=== PATIENT | female | born 1950 | race Caucasian/White ===

== ENCOUNTER 2018-05-02 03:07 | Inpatient (IN) ==
--- NOTE | 2018-05-02 03:22 | Emergency Department Note ---
ED Disposition Clinical Impression: ST elevation myocardial infarction (STEMI) Qualifiers: Involved coronary artery: unspecified coronary artery Qualified Code(s): I21.3 - ST elevation (STEMI) myocardial infarction of unspecified site Obesity Qualifiers: Obesity type: due to excess calories Obesity classification: adult class 2 (BMI 35 - 39.9) Serious obesity comorbidity presence: unspecified whether serious comorbidity present Body mass index: BMI 38.0-38.9 Qualified Code(s): E66.09 - Other obesity due to excess calories Disposition: Admitted As Inpatient Condition on Discharge: Serious - Critical Care Critical Care Time: Yes Attestation: On , the high probability of a clinically significant, sudden or life threateni ng deterioration of the following system(s) required my full and direct attention, intervention and personal management. The time I documented below is in addition to time spent performing reported procedures but includes the following listed in this critical care notation. Total Critical Care Time: 30 Vital system(s) involved:: Circulatory Failure My critical care processes included: Assessment & monitoring of V/S, Data Review/Interpretation, Coordinating Care, Medication Orders and management, Documentation Medical Decision Making - Medical Records Medical records reviewed: Yes: I reviewed the patient's medical records. - Torsten Inquiry Pt receiving controlled substance: No Vital Signs: 05/02/18 03:07 05/02/18 03:30 Temperature 98 F Temperature Source Oral Pulse Rate [Right] 111 H 110 H Respiratory Rate 22 22 Blood Pressure [Right Arm] 131/87 155/89 H Blood Pressure Mean [Right Arm] 101 111 02 Sat by Pulse Oximetry 94 L 97 Oxygen Delivery Method Room Air Nasal Cannula Oxygen Flow Rate (LPM) 4 - Lab Data Lab Results 05/02/18 03:20: WBC 10.7, RBC 5.46 H, Hgb 15.6, Hct 46.9, MCV 86.0, MCH 28.5, MCHC 33.1, RDW 13.4, Plt Count 343, MPV 6.7 L, Neut % (Auto) 74.8, Lymph % (Auto) 18.7, [place] % (Auto) 4.3, Eos % (Auto) 1.6, Baso % (Auto) 0.6, Neut # (Auto) 8.0 H, Lymph # (Auto) 2.0, [place] # (Auto) 0.5, Eos # (Auto) 0.2, Baso # (Auto) 0.1 05/02/18 03:20: Sodium 137, Potassium 3.6, Chloride 100, Carbon Dioxide 26, Anion Gap 14.6, BUN 14, Creatinine 0.78, Estimated Creat Clear 98, Estimated GFR 74, Est GFR ( Amer) 89, Glucose 175 H, Calcium 9.3 Result diagrams: 05/02/18 03:20 05/02/18 03:20 Orders (Tests/Meds): ED MEDICATIONS Generic Name Dose Route Start Last Admin Trade Name Freq PRN Reason Stop Dose Admin Sodium Chloride 1,000 mls @ 999 mls/hr 05/02/18 03:15 05/02/18 03:23 Sod Chlor 0.9% 1000ml Bag IV 05/02/18 04:15 999 mls/hr .Q1H1M RAEANN Administration Discontinued Medications Generic Name Dose Route Start Last Admin Trade Name Freq PRN Reason Stop Dose Admin Aspirin 324 mg 05/02/18 03:14 05/02/18 03:23 Aspirin 81mg Chewable Tablet PO 05/02/18 03:15 324 mg ONCE ONE Administration Heparin Sodium (Porcine) 5,000 unit 05/02/18 03:14 05/02/18 03:28 Heparin Sodium 5,000 Units/Ml Vial IV 05/02/18 03:15 Not Given ONCE ONE Heparin Sodium (Porcine) 10,000 unit 05/02/18 03:26 05/02/18 03:28 Heparin Sodium 5,000 Units/Ml Vial IV 05/02/18 03:27 10,000 unit ONCE ONE Administration Morphine Sulfate 4 mg 05/02/18 03:36 05/02/18 03:37 Morphine 4mg/Ml Syringe IV 05/02/18 03:37 4 mg ONCE ONE Administration Ondansetron HCl 4 mg 05/02/18 03:37 05/02/18 03:37 Zofran 4mg/2ml Vial IV 05/02/18 03:38 4 mg ONCE ONE Administration Ticagrelor 180 mg 05/02/18 03:14 05/02/18 03:23 Brilinta 90mg Tablet PO 05/02/18 03:15 180 mg ONCE ONE Administration ORDERS Category Date Time Status XR chest portable Stat Exams 05/02/18 03:13 Taken Basic Metabolic Panel Stat Lab 05/02/18 03:20 Results PT/INR [Prothrombin Time INR] Stat Lab 05/02/18 03:20 Received PT/PTT Stat Lab 05/02/18 03:20 Received Troponin I Stat Lab 05/02/18 03:20 Results ECG Request by /Dixon Stat Y 05/02/18 03:11 Ordered - ECG Data Tracing #1 Normal Sinus Rhythm: Yes Ischemic changes: ST elevation ECG compared to prior tracings: there are no prior tracings available for comparison - Physician Consults Physician Consulted: maude Reason -: Pt condition Additional Consult: sound Reason -: Admission Chest Pain HPI - General Chief Complaint: Chest Pain Stated Complaint: Chest pain Time Seen by Provider: 05/02/18 03:10 Mode of Arrival: Ambulatory Source of Information: Patient, Relative, Medical Record Limitations: No Limitations Description of Symptoms (Recalled from ER Triage Doc. by RN): Pt c/o midsternal CP that radiates to her jaw and neck that started around 2100 last night. - History of Present Illness HPI narrative: acute onset of ant chest pain rad to jaw which started 2100 - MD complaint: chest pain indicative of cardiac Onset (ago): hour(s) Duration: constant Activity at onset: during rest Pain location: substernal Severity: moderate Quality: sharp Pain radiation: neck Associated symptoms: nausea Risk Factors for CAD: Family Hx of CAD Treatments prior to or on arrival for Cardiac Chest Pain: none - BRENDA Score for Stemi Age of Patient: 60-69 years old Heart Rate: 110-149 bpm Systolic Blood Pressure: 120-139 mmhg Serum Creatinine: 0.40-0.79 mg/dl CHF Kill[place] Class: I-No CHF Other Risk Factors: ST Segment Deviation Stemi Risk Score: 148 - Related Data On Oral Contraceptives: No Home Medications Medication Instructions Recorded Confirmed No Known Home Medications 05/02/18 05/02/18 Allergies Allergy/AdvReac Type Severity Reaction Status Date / Time Sulfa (Sulfonamide Allergy Mild Verified 05/02/18 03:22 Antibiotics) [SULFA (SULFONAMIDE ANTIBIOTICS)] [facility] History I have reviewed the patient's past medical history: Yes - Social History Smoking Status: Former smoker Alcohol Intake: never - Psychiatric History Expresses thoughts of harming self/others: None Suicide Plan Description: No Plan ROS Obtained: Yes All systems reviewed & no additional complaints - Constitutional Constitutional: Denies fever(s) - Eyes Eyes: Denies change in vision - ENT Ears, Nose, Mouth, and Throat: Denies sore throat - Cardiovascular Cardiovascular: Reports chest pain, Reports chest pain at rest, Reports dyspnea - Respiratory Respiratory: No cough - Gastrointestinal Gastrointestingal: Denies: abdominal pain - Genitourinary Female Genitourinary: Denies hematuria - Musculoskeletal Musculoskeletal: Reports joint pain - Integumentary/Breasts Skin/Breast: Denies rash - Neurologic Neurologic: Denies seizure-like activity Physical Exam - General General appearance: alert, obese - Head Head exam: normocephalic - Eye Eye exam: Present: PERRL, EOMI - ENT ENT exam: Present: mucous membranes dry - Neck Neck exam: Present: trachea midline - Respiratory Respiratory exam: Absent: respiratory distress - Cardiovascular Cardiovascular exam: Present: regular rate, systolic murmur - Abdominal Exam Abdominal exam: Present: soft - Extremities Exam Extremities exam: Absent: tenderness - Neurological Exam Neurological exam: Present: alert, oriented X3, CN II-XII intact - Psychiatric Psychiatric exam: Present: normal affect - Skin Skin exam: Absent: rash
[2018-05-02 03:29] LABS: Basophils # 0.1 K/mm3 (0-0.2); Basophils % 0.6 % (0.1-2.0); Eosinophils # 0.2 K/mm3 (0.0-0.4); Eosinophils % 1.6 % (0.1-12.0); Hematocrit 46.9 % (37.0-47.0); Hemoglobin 15.6 g/dL (12.2-16.2); Lymphocytes % 18.7 % (10-50); Mean Corpuscular HGB Conc 33.1 g/dL (31.8-35.4); Mean Corpuscular Hemoglobin 28.5 pg (27.0-31.2); Mean Platelet Volume 6.7 fl (7.4-10.4); Monocytes # 0.5 K/mm3 (0.1-1.0); Monocytes % 4.3 % (1.7-9.3); Neutrophils % 74.8 % (37.0-80.0); Platelet Count 343 K/mm3 (142-424); Red Blood Count 5.46 M/mm3 (4.20-5.40); Red Cell Distribution Width 13.4 % (11.5-17.5); White Blood Count 10.7 K/mm3 (4.8-10.8)
[2018-05-02 03:37] LABS: Anion Gap 14.6 mEq/L (5-15); Potassium 3.6 mmoL/L (3.5-5.1)
[2018-05-02 03:38] LABS: Activated Partial Thrombo Time 27.3 seconds (23.6-34.0); Calcium 9.3 mg/dL (8.5-10.1); INR 0.95 (0.9-1.1); Prothrombin Time 9.8 seconds (9.4-11.8)
[2018-05-02 06:09] LABS: Chol/HDL Ratio 5.8 (1-3.5)
--- NOTE | 2018-05-02 07:55 | Pharmacy Consult Notes ---
[facility] Pharmacy VTE Monitoring - Patient Demographics Admission date: 05/01/18 Report Date: 05/02/18 Time: 07:55 Allergies/Adverse Reactions: Patient Allergies Sulfa (Sulfonamide Antibiotics) [SULFA (SULFONAMIDE ANTIBIOTICS)] Allergy (Mild, Verified 05/02/18 05:26) Height: 1.75 m Weight: 118.473 kg Patient Problems: Current Active Problems ST elevation myocardial infarction (STEMI) (Acute) Obesity (Acute) - VTE Risk Labs: VTE Related Lab Results Hgb 15.6 g/dL (12.2-16.2) 05/02/18 03:20 Hct 46.9 % (37.0-47.0) 05/02/18 03:20 Plt Count 343 K/mm3 (142-424) 05/02/18 03:20 PT 9.8 seconds (9.4-11.8) 05/02/18 03:20 INR 0.95 (0.9-1.1) 05/02/18 03:20 APTT 27.3 seconds (23.6-34.0) 05/02/18 03:20 BUN 14 mg/dL (7-18) 05/02/18 03:20 Creatinine 0.78 mg/dL (0.55-1.02) 05/02/18 03:20 Estimated Creat Clear 98 mL/min (50-200) 05/02/18 03:20 Was VTE Risk Assessment Performed: No VTE Score: 3 VTE Risk Level: Low Risk Clinical Trial Participant: No - Prophylaxis VTE Prophylaxis Ordered?: Yes Types of VTE Prophylaxis: TEDS Knee High
--- NOTE | 2018-05-02 08:47 | History & Physical Report ---
*Admission Date: 05/01/18 <Miladis Acevedo 05/02/18 08:49> *Chief complaint: chest pain <Miladis cAevedo 05/02/18 08:49> *History of present illness: Ms. Cardenas is a 67-year-old with no real medical history other than allergies. She states around 9 PM last night, she began having midsternal chest pain. She thought it was heartburn because she had just eaten some chili. By 2 AM she was sweating and the pain was radiating to her jaw on the left side. She states she felt like something was sitting on her chest. She was brought to the emergency room and found to have a STEMI. She was immediately taken to the [facility] and received a stent in her LAD. At this time she is doing well and has had no further chest pain. <Miladis Acevedo 05/02/18 08:49> [facility] History Medical History: Denies:: Cancer, Diabetes Mellitus Type 1, Diabetes Mellitus Type 2, MRSA <Miladis Acevedo 05/02/18 08:49> Comment: Allergies <Miladis Acevedo 05/02/18 08:49> Amputation: No <Miladis Acevedo 05/02/18 08:49> Fractures: No <Miladis Acevedo 05/02/18 08:49> Comment: Polyp removed from uterus <Miladis Acevedo 05/02/18 08:49> - *Social History Smoking Status: Former smoker <Miladis Acevedo 05/02/18 08:49> Alcohol Intake: never <Miladis Acevedo 05/02/18 08:49> Occupational Status: retired <Miladis Acevedo 05/02/18 08:49> - Psychiatric History Expresses thoughts of harming self/others: None <Miladis Acevedo 05/02/18 08:49> Suicide Plan Description: No Plan <Miladis Acevedo 05/02/18 08:49> *Family Hx:: Cancer, Heart Attack <Miladis Acevedo 05/02/18 08:49> Review of Systems - Constitutional Denies fever(s), Denies weakness <Miladis Acevedo 05/02/18 08:49> - Eyes Denies blurry vision, Denies double vision <Miladis Acevedo - 05/02/18 08:49> - ENT Denies nasal congestion, Denies sore throat [facility] 08[facility]> - *Cardiovascular Reports chest pain, Denies shortness of breath, Denies leg swelling <[facility] 05/02/18 08:49> - *Respiratory Denies cough, Denies shortness of breath <[facility] 05/02/18 08:49> - *Gastrointestinal Denies abdominal pain, Denies loose stools, Denies nausea, Denies vomiting [facility] 05/02/18 08:49> - *Genitourinary Denies difficulty urinating, Denies painful urination <[facility] 05/02/18 08:49> - *Musculoskeletal Denies joint pain, Denies muscle cramps <[facility] 05/02/18 08:49> - *Neurologic Denies headache(s), Denies seizure-like activity, Denies dizziness, Denies weakness <Miladis Acevedo 05/02/18 08:49> Meds Home Medications Medication Instructions Recorded Confirmed Type Cetirizine HCl [Zyrtec] 10 mg PO DAILYP PRN 05/02/18 05/02/18 History hydroCHLOROthiazide 12.5 mg PO DAILYP PRN 05/02/18 05/02/18 History [Hydrochlorothiazide 12.5mg Tab] [facility]/02/[facility] 11:14> Allergies Allergy/AdvReac Type Severity Reaction Status Date / Time Sulfa (Sulfonamide Allergy Mild Verified 05/02/18 05:26 Antibiotics) [SULFA (SULFONAMIDE ANTIBIOTICS)] [facility] 05/02/18 11:14> Exam Vital signs and Labs for Last 24 Hours: Temp Pulse Resp BP Pulse Ox 98.2 F 87 20 154/106 H 96 05/02/18 08:00 05/02/18 10:40 05/02/18 10:40 05/02/18 10:40 05/02/18 10:40 Laboratory Results - last 24 hr 05/02/18 03:20: WBC 10.7, RBC 5.46 H, Hgb 15.6, Hct 46.9, MCV 86.0, MCH 28.5, MCHC 33.1, RDW 13.4, Plt Count 343, MPV 6.7 L, Neut % (Auto) 74.8, Lymph % (Auto) 18.7, [place] % (Auto) 4.3, Eos % (Auto) 1.6, Baso % (Auto) 0.6, Neut # (Auto) 8.0 H, Lymph # (Auto) 2.0, [place] # (Auto) 0.5, Eos # (Auto) 0.2, Baso # (Auto) 0.1 05/02/18 03:20: Sodium 137, Potassium 3.6, Chloride 100, Carbon Dioxide 26, Anion Gap 14.6, BUN 14, Creatinine 0.78, Estimated Creat Clear 98, Estimated GFR 74, Est GFR ( Amer) 89, Glucose 175 H, Calcium 9.3, Troponin I 0.83 H 05/02/18 03:20: PT 9.8, INR 0.95, APTT 27.3 05/02/18 04:56: Activated Clotting Time 235 H* 05/02/18 05:10: Activated Clotting Time 313 H* D 05/02/18 05:40: Triglycerides 44, Cholesterol 242 H, LDL Cholesterol 191 H, VLDL Cholesterol 9, HDL Cholesterol 42, Cholesterol/HDL Ratio 5.8 H <Sound,Mary - 05/02/18 11:14> Temp Pulse Resp BP Pulse Ox 98.2 F 82 17 140/89 97 05/02/18 08:00 05/02/18 06:40 05/02/18 06:40 05/02/18 06:40 05/02/18 06:40 Laboratory Results - last 24 hr 05/02/18 03:20: WBC 10.7, RBC 5.46 H, Hgb 15.6, Hct 46.9, MCV 86.0, MCH 28.5, MCHC 33.1, RDW 13.4, Plt Count 343, MPV 6.7 L, Neut % (Auto) 74.8, Lymph % (Auto) 18.7, [place] % (Auto) 4.3, Eos % (Auto) 1.6, Baso % (Auto) 0.6, Neut # (Auto) 8.0 H, Lymph # (Auto) 2.0, [place] # (Auto) 0.5, Eos # (Auto) 0.2, Baso # (Auto) 0.1 05/02/18 03:20: Sodium 137, Potassium 3.6, Chloride 100, Carbon Dioxide 26, Anion Gap 14.6, BUN 14, Creatinine 0.78, Estimated Creat Clear 98, Estimated GFR 74, Est GFR ( Amer) 89, Glucose 175 H, Calcium 9.3, Troponin I 0.83 H 05/02/18 03:20: PT 9.8, INR 0.95, APTT 27.3 05/02/18 04:56: Activated Clotting Time 235 H* 05/02/18 05:10: Activated Clotting Time 313 H* D 05/02/18 05:40: Triglycerides 44, Cholesterol 242 H, LDL Cholesterol 191 H, VLDL Cholesterol 9, HDL Cholesterol 42, Cholesterol/HDL Ratio 5.8 H <Miladis Acevedo - 05/02/18 08:49> I & O for Last 24 hours: Intake & Output 04/29/18 04/30/18 05/01/18 05/02/18 11:59 11:59 11:59 11:59 Intake Total Output Total 150 / 150 Balance -140 / -140 Weight 261 lb 3 oz <JackieAyoa - 05/02/18 11:14> Intake & Output 04/29/18 04/30/18 05/01/18 05/02/18 11:59 11:59 11:59 11:59 Intake Total Balance Weight 261 lb 3 oz <Miladis Acevedo - 05/02/18 08:49> - Constitutional no acute distress <Miladis Acevedo - 05/02/18 08:49> - *Routine HEENT Exam Head: Present: normocephalic <Miladis Acevedo - 05/02/18 08:49> Eye: Present: EOMI, PERRL <Miladis Acevedo - 05/02/18 08:49> ENT: Present: mucous membranes moist <Miladis Acevedo 05/02/18 08:49> - *Routine Neck Exam Present: supple. Absent: lymphadenopathy <Miladis Acevedo - 05/02/18 08:49> - *Routine Respiratory Exam Present: CTA bilaterally <Miladis Acevedo 05/02/18 08:49> - *Routine Cardiovascular Exam Present: RRR <Miladis Acevedo 05/02/18 08:49> - *Routine Abdominal Exam Present: soft, normoactive bowel sounds. Absent: tenderness <Miladis Acevedo 05/02/18 08:49> - *Routine Extremities Exam Absent: cyanosis, clubbing, edema <Miladis Acevedo 05/02/18 08:49> - *Routine Skin Exam Present: warm. Absent: rash <Miladis Acevedo 05/02/18 08:49> - *Routine Neurological Exam Present: alert, oriented X3 <Miladis Acevedo 05/02/18 08:49> H&P: Result - Impressions CXR - Increased markings right lung base which could be due to vascular crowding, atelectasis, or infiltrate Cardiac Cath 1. Acute ST elevation myocardial infarction involving the mid left anterior descending artery 2. Successful stenting of the mid LAD 100% occlusion reduced to 0% with 1 drug- eluting stent 3. Mild to moderate nonflow limiting disease in the circumflex artery and domin ant right coronary artery PLAN: 1. Brilinta 90 mg twice a day plus aspirin 81 mg daily for one year 2. LDL less than 55 3. Start with naeem inhibitors followed by carvedilol and uptitrate as hemodyn amically tolerated 4. Echocardiogram to assess ejection fraction 5. I suspect patient will require a lifevest based on her prolonged infarct I'm starting at 9:00 PM. Ejection fraction is 35% or less patient should be discharged home with a lifevest 6. Avoidance of tobacco products 7. Cardiac rehabilitation <Miladis Acevedo 05/02/18 08:49> Assessment and Plan (1) ST elevation myocardial infarction (STEMI) Current visit: Yes Status: Acute Qualifiers: Involved coronary artery: unspecified coronary artery Qualified Code(s): I21.3 - ST elevation (STEMI) myocardial infarction of unspecified site Category: Medical Code(s): I21.3 - ST elevation (STEMI) myocardial infarction of unspecified site (2) Presence of stent in LAD coronary artery Current visit: Yes Status: Acute Category: Medical Code(s): Z95.5 - Presence of coronary angioplasty implant and graft (3) Hyperlipidemia Current visit: Yes Status: Acute Category: Medical Code(s): E78.5 - Hyperlipidemia, unspecified <Miladis Acevedo - 05/02/18 08:44> (1) ST elevation myocardial infarction (STEMI) Current visit: Yes Status: Acute Qualifiers: Involved coronary artery: unspecified coronary artery Qualified Code(s): I21.3 - ST elevation (STEMI) myocardial infarction of unspecified site Category: Medical Code(s): I21.3 - ST elevation (STEMI) myocardial infarction of unspecified site (2) Presence of stent in LAD coronary artery Current visit: Yes Status: Acute Category: Medical Code(s): Z95.5 - Presence of coronary angioplasty implant and graft (3) Hyperlipidemia Current visit: Yes Status: Acute Category: Medical Code(s): E78.5 - Hyperlipidemia, unspecified <Mary Mejia - 05/02/18 11:14> - Assessment and plan all Dx Assessment and Plan for all problems:: Patient will need lifevest per cardiology. She will also need new set of cardiac meds upon discharge. Will stop IVF for now. <Mary Mejia - 05/02/18 11:14> Cath reviewed, further as per cardiology. <Miladis Acevedo - 05/02/18 08:49>
--- NOTE | 2018-05-02 10:23 | Cardiology Report ---
PROCEDURE: 2-D M-mode and color Doppler study INDICATIONS FOR THE TEST: Chest painX COPD Heart Murmur Tobacco Smoking Palpitations Fatigue Syncope Edema Hypertension Diabetes Mellitus Rheumatic Fever SOB JIMÉNEZ ObesityXHyperlipidemia Family History HD Additional History STEMI,STENT PATIENT INFORMATION HEIGHT: 68 WEIGHT:250 GENDER: Female B/P:138/78 2-D/M-MODE INTERPRETATION: 2-D MEASUREMENTS OBSERVED VALUES IN CMS Right Ventricular Dimension (RVDd) 3.4 Interventricular Septum (Thickness)(IVsd) 1.2 Left Ventricular Internal Dimensions(LVIDd) 4.1 Left Ventricular Posterior Wall (Thickness)(LVPWd) 1.3 Aortic Root 3.3 Aortic Cusp Separation 1.9 Left Atrial Dimensions (LAD) 3.3 2D 1. Left atrium is mildly enlarged, left ventricle is normal size, mild concentric left ventricular hypertrophy, visually estimated ejection fraction approximately 30%, there is marked hypokinesis involving mid to distal septum, anterior, anteroapical and apical wall. 2. The right atrium and right ventricle are mildly enlarged with normal contractility. 3. The aortic valve is minimally thickened and fibrosed. 4. The mitral and tricuspid valve leaflets are minimally thickened. 5. The pulmonic valve is poorly visualized. 6. No significant pericardial effusion noted. DOPPLER INTERROGATION: Doppler interrogation of the aortic, mitral and tricuspid valvular presence of mild mitral and tricuspid regurgitation, calculated right ventricular systolic pressure is 43 mmHg consistent with moderate pulmonary hypertension, grade 1 diastolic dysfunction seen with tissue Doppler evidence of raised left atrial pressure. CONCLUSION: 1. Mildly enlarged left atrium, normal left ventricular size, mild concentric left ventricular hypertrophy, visually estimated ejection fraction 30% with multiple segmental wall motion abnormality described above, grade 1 diastolic dysfunction seen with tissue Doppler evidence of raised left atrial pressure. 2. Mild mitral and tricuspid regurgitation, likely related right ventricular systolic pressure is 43 mmHg consistent with moderate pulmonary hypertension. 4. Mildly enlarged right ventricle with normal contractility. 5. No significant pericardial effusion noted.
[2018-05-02 17:19] LABS: Microscopic, Urine URINE MICROSCOPIC (MICROSCOPIC)
[2018-05-02 18:46] LABS: Appearance,Urine CLEAR (Clear); Bilirubin,Urine Negative (Negative); Blood, Urine TRACE-I (Negative); Color,Urine YELLOW (Yellow); Glucose,Urine (UA) Negative (Negative); Ketones,Urine Negative (Negative); Leukocyte Esterase,Urine Negative (Negative); Protein,Urine Negative (Negative); Specific Gravity, Urine <= 1.005 (1.005-1.030)
[2018-05-02 18:56] LABS: Bacteria,Urine 1+ /lpf; RBC,Urine Occasional #/hpf (0-3); WBC,Urine Occasional #/hpf (0-3)
[2018-05-03 06:05] LABS: Hemoglobin 13.9 g/dL (12.2-16.2)
--- NOTE | 2018-05-03 08:55 | Progress Note ---
Internal Medicine - PN: Subj Interval history: She rested fairly well last night with no chest pain or shortness of breath. She has been a bit anxious. She is tolerating light activity in the room. She is to be fitted for her LifeVest today. Exam Vital signs and Labs for Last 24 Hours: Temp Pulse Resp BP Pulse Ox 99.4 F 101 H 20 135/83 95 05/03/18 08:00 05/03/18 08:00 05/03/18 08:00 05/03/18 08:00 05/03/18 08:00 Laboratory Results - last 24 hr 05/02/18 14:10: Urine Color Yellow, Urine Appearance Clear, Urine pH 7.0, Ur Specific [place] <= 1.005, Urine Protein Negative, Urine Glucose (UA) Negative, Urine Ketones Negative, Urine Blood Trace-i, Urine Nitrate Negative, Urine Bilirubin Negative, Urine Urobilinogen 1.0, Ur Leukocyte Esterase Negative, Urine RBC Occasional, Urine WBC Occasional, Ur Squamous Epith Cells 3-5, Urine Bacteria 1+ 05/03/18 05:45: Hgb 13.9, Hct 41.0 05/03/18 05:45: Creatinine 0.80, Estimated Creat Clear 101, Estimated GFR 72, Est GFR ( Amer) 87 I & O for Last 24 hours: Intake & Output 04/30/18 05/01/18 05/02/18 05/03/18 11:59 11:59 11:59 11:59 Intake Total 120 / 120 Output Total 150 / 150 625 / 625 Balance -140 / -140 -505 / -505 Weight 261 lb 3 oz 257 lb 7 oz Narrative: She is lying comfortably in bed. No acute distress. She is alert and oriented. Color is normal. Lungs are clear to auscultation. Heart is regular. Extremities no edema. Assessment and Plan (1) ST elevation myocardial infarction (STEMI) Current visit: Yes Status: Acute Qualifiers: Involved coronary artery: unspecified coronary artery Qualified Code(s): I21.3 - ST elevation (STEMI) myocardial infarction of unspecified site Category: Medical Code(s): I21.3 - ST elevation (STEMI) myocardial infarction of unspecified site (2) Presence of stent in LAD coronary artery Current visit: Yes Status: Acute Category: Medical Code(s): Z95.5 - Presence of coronary angioplasty implant and graft (3) Hyperlipidemia Current visit: Yes Status: Acute Category: Medical Code(s): E78.5 - Hyperlipidemia, unspecified - Assessment and plan all Dx Assessment and Plan for all problems:: She is to be fitted with her LifeVest today. We will start on low-dose MARY inhibitor and beta-serina and titrate as tolerated. Encourage activity in the room.
--- NOTE | 2018-05-04 08:21 | Progress Note ---
Internal Medicine - PN: Subj Interval history: She has no complaints of chest pain, palpitations, or shortness of breath. She is tolerating light activity around the room. She was fitted for her LifeVest yesterday. She is eager to go home. Exam Vital signs and Labs for Last 24 Hours: Temp Pulse Resp BP Pulse Ox 98.5 F 88 20 100/54 L 94 L 05/04/18 08:00 05/04/18 08:00 05/04/18 08:00 05/04/18 08:00 05/04/18 08:00 I & O for Last 24 hours: Intake & Output 05/01/18 05/02/18 05/03/18 05/04/18 11:59 11:59 11:59 11:59 Intake Total 120 / 120 1060 / 1060 Output Total 150 / 150 625 / 625 800 / 800 Balance -140 / -140 -505 / -505 260 / 260 Weight 261 lb 3 oz 257 lb 7 oz 254 lb 7 oz Narrative: She is sitting up in the chair. No acute distress. Color is normal. Lungs are clear to auscultation. Heart is regular with no ectopy. Extremities show no edema. Assessment and Plan (1) ST elevation myocardial infarction (STEMI) Current visit: Yes Status: Acute Qualifiers: Involved coronary artery: unspecified coronary artery Qualified Code(s): I21.3 - ST elevation (STEMI) myocardial infarction of unspecified site Category: Medical Code(s): I21.3 - ST elevation (STEMI) myocardial infarction of unspecified site (2) Presence of stent in LAD coronary artery Current visit: Yes Status: Acute Category: Medical Code(s): Z95.5 - Presence of coronary angioplasty implant and graft (3) Hyperlipidemia Current visit: Yes Status: Acute Category: Medical Code(s): E78.5 - Hyperlipidemia, unspecified - Assessment and plan all Dx Assessment and Plan for all problems:: She is now 48 hours post IA and stenting. She is doing well. She is wearing her LifeVest. She is stable to be discharged home and will follow up with Dr. Diallo in 2 days.
--- NOTE | 2018-05-05 16:41 | Discharge Summary ---
General - General Admission date:: 05/02/18 <AdelaNader roberto Sage - 05/06/18 08:10> 05/02/18 <Miladis Acevedo - 05/05/18 16:42> Discharge date: 05/04/18 <Miladis Acevedo - 05/05/18 16:42> HPI HPI: Ms. Cardenas is a 67-year-old with no real medical history other than allergies. She states around 9 PM last night, she began having midsternal chest pain. She thought it was heartburn because she had just eaten some chili. By 2 AM she was sweating and the pain was radiating to her jaw on the left side. She states she felt like something was sitting on her chest. She was brought to the emergency room and found to have a STEMI. She was immediately taken to [facility] and received a stent in her LAD. At this time she is doing well and has had no further chest pain. <Miladis Acevedo - 05/05/18 16:42> Hospital Course Hospital Course: The patient's echo showed an EF of 30%. Cardiology fitted her with a life vest. She was started on new cardiac medications as well as a low- dose MARY inhibitor and beta-serina. She had no further CP and tolerated light activity around the room. She was stable to be discharged home and will follow up with Dr. Diallo in 2 days. <Miladis Acevedo - 05/05/18 16:42> Objective Vital signs: Temp Pulse Resp BP Pulse Ox 98.5 F 88 20 100/54 L 94 L 05/04/18 08:00 05/04/18 08:00 05/04/18 08:00 05/04/18 08:00 05/04/18 08:00 <AdelaNader garner Sage - 05/06/18 08:10> Temp Pulse Resp BP Pulse Ox 98.5 F 88 20 100/54 L 94 L 05/04/18 08:00 05/04/18 08:00 05/04/18 08:00 05/04/18 08:00 05/04/18 08:00 <Miladis Acevedo - 05/05/18 16:42> Narrative: - Constitutional no acute distress - *Routine HEENT Exam Head: Present: normocephalic Eye: Present: EOMI, PERRL ENT: Present: mucous membranes moist - *Routine Neck Exam Present: supple. Absent: lymphadenopathy - *Routine Respiratory Exam Present: CTA bilaterally - *Routine Cardiovascular Exam Present: RRR - *Routine Abdominal Exam Present: soft, normoactive bowel sounds. Absent: tenderness - *Routine Extremities Exam Absent: cyanosis, clubbing, edema - *Routine Skin Exam Present: warm. Absent: rash - *Routine Neurological Exam Present: alert, oriented X3 <Miladis Acevedo - 05/05/18 16:42> DS: Diagnosis - Discharge Diagnosis (1) ST elevation myocardial infarction (STEMI) Status: Acute (2) Presence of stent in LAD coronary artery Status: Acute (3) Hyperlipidemia Status: Acute <Miladis Acevedo 05/05/18 16:37> (1) ST elevation myocardial infarction (STEMI) Status: Acute (2) Presence of stent in LAD coronary artery Status: Acute (3) Hyperlipidemia Status: Acute <Nader Chapman - 05/06/18 08:10> Discharge Plan - Patient Discharge Instructions ACTIVITY: Limited activity <Miladis Acevedo - 05/05/18 16:42> DIET: cardiac <Miladis Acevedo - 05/05/18 16:42> Patient Instructions: Cardiac Catheterization, Coronary Stenting, Heart-Healthy Diet, DI for Cardiac Catheterization, DI for Coronary Stenting, DI for Surgical Site Infection, Ticagrelor, Lisinopril, Carvedilol <Nader Chapman - 05/06/18 08:10> Forms: <Nader Chapman - 05/06/18 08:10> - Follow up Plan Follow up with: Mick Diallo MD [Staff Physician] - 05/06/18 9:00 am <Nader Chapman - 05/06/18 08:10> Disposition: Home, Self-Care <Nader Chapman - 05/06/18 08:10> Prescriptions/Medication Reconciliation: New RX: Atorvastatin Calcium [Lipitor 40mg Tablet] 40 mg PO HS #30 tab RX: Carvedilol [Coreg 3.125mg Tablet] 3.125 mg PO BID #60 tab RX: Lisinopril [Zestril 5mg Tablet] 5 mg PO DAILY #30 tab RX: Nitroglycerin [Nitrostat 0.4mg SL Tablet] 0.4 mg SL Q5MINP PRN #25 tab.subl PRN Reason: Chest Pain RX: Ticagrelor [Brilinta 90mg Tablet] 90 mg PO BID #60 tab RX: Aspirin [Aspirin 81mg EC Tab] 81 mg PO DAILY #30 tablet.dr Discontinued Cetirizine HCl [Zyrtec] 10 mg PO DAILYP PRN PRN Reason: ALLERGY SYMPTOMS hydroCHLOROthiazide [Hydrochlorothiazide 12.5mg Tab] 12.5 mg PO DAILYP PRN PRN Reason: FLUID <Nader Chapman - 05/06/18 08:10> - Additional Information Additional Information: Concur with plan for discharge as outlined above. <Nader Chapman - 05/06/18 08:10>
== END 2018-05-04 09:32 | disposition home or self-care (01) ==
LOC: ER 03:07 → CATHLAB 03:36 → 2ND 04:57
PROVIDERS: ADMIT Emergency Medicine; ATTEND Emergency Medicine

== ENCOUNTER → 2018-05-06 09:13 | Outpatient (CLI) | payer MEDICARE, MEDICAID, SELFPAY ==
--- NOTE | 2018-05-06 09:32 | CA_ITS ---
PROCEDURE: Limited study evaluate left ventricular systolic function INDICATIONS FOR THE TEST: Chest pain COPD Heart Murmur Tobacco Smoking Palpitations Fatigue Syncope Edema Hypertension Diabetes Mellitus Rheumatic Fever SOB JIMÉNEZ Obesity Hyperlipidemia Family History HD Additional History PT WORE LIFEVEST 1 DAY, STEMI, STENTS PATIENT INFORMATION HEIGHT:68 WEIGHT:217 GENDER: Female B/P: 2-D/M-MODE INTERPRETATION: 2-D MEASUREMENTS OBSERVED VALUES IN CMS Right Ventricular Dimension (RVDd) Interventricular Septum (Thickness)(IVsd) Left Ventricular Internal Dimensions(LVIDd) Left Ventricular Posterior Wall (Thickness)(LVPWd) Aortic Root Aortic Cusp Separation Left Atrial Dimensions (LAD) 2D 1. Left atrium is mildly enlarged, left ventricle is normal size, mild concentric left ventricular hypertrophy, there is severely reduced left ventricular systolic function, visually estimated ejection fraction approximately 25%, there is marked hypo to akinesis involving mid to distal septum, anterior, anteroapical, apex. There is left ventricular apical mural thrombus seen. Definity contrast was utilized to delineate endocardial surfaces. 2. The right atrium and right ventricle are normal size and contractility. 3. The aortic valve is thickened and is difficult to display mobility. 4. The mitral and tricuspid valve leaflets are minimally thickened 5. The pulmonic valve is poorly visualized. 6. No significant pericardial effusion noted. DOPPLER INTERROGATION: No Doppler performed CONCLUSION: 1. Mildly enlarged left atrium, normal left ventricular size, mild concentric left ventricular hypertrophy, visually estimated ejection fraction of 25% with segmental wall motion abnormality described above, there is left ventricular apical mural thrombus seen. Definity contrast was utilized to delineate endocardial surfaces. 2. No significant pericardial effusion noted.
== END ==
PROVIDERS: PCP Internal Medicine Adolescent Medicine; Visit Provider Internal Medicine
DX: Z95.5 Presence of coronary angioplasty implant and graft (principal); I21.3 ST elevation (STEMI) myocardial infarction of unspecified site
CPT/HCPCS: 93308

== ENCOUNTER 2018-05-12 11:24 | Outpatient (CLI) | payer MEDICARE, MEDICAID, SELFPAY ==
[2018-05-12 12:09] LABS: PHA INR Fingerstick 3.2 (0.9-1.1)
== END 2018-05-12 13:25 | disposition home or self-care (01) ==
PROVIDERS: PCP Internal Medicine Adolescent Medicine; Visit Provider Internal Medicine
DX: Z51.81 Encounter for therapeutic drug level monitoring (principal); Z79.01 Long term (current) use of anticoagulants
CPT/HCPCS: 85610; 99211; G0463

== ENCOUNTER 2018-05-15 11:18 | Outpatient (CLI) | payer MEDICARE, MEDICAID, SELFPAY ==
[2018-05-15 12:12] LABS: PHA INR Fingerstick 3.1 (0.9-1.1)
== END 2018-05-15 12:14 | disposition home or self-care (01) ==
LOC: ACC 11:19
PROVIDERS: PCP Internal Medicine Adolescent Medicine; Visit Provider Internal Medicine
DX: Z79.01 Long term (current) use of anticoagulants (principal)
CPT/HCPCS: 85610; 99211; G0463

== ENCOUNTER 2018-05-21 11:10 | Outpatient (CLI) | payer MEDICARE, MEDICAID, SELFPAY ==
[2018-05-21 12:26] LABS: INR 6.31 (0.9-1.1); Prothrombin Time 61.6 seconds (9.4-11.8)
[2018-05-21 13:21] LABS: PHA INR Fingerstick 4.1 (0.9-1.1)
== END 2018-05-21 13:32 | disposition home or self-care (01) ==
LOC: ACC 11:11
PROVIDERS: PCP Internal Medicine Adolescent Medicine; Visit Provider Internal Medicine
DX: Z51.81 Encounter for therapeutic drug level monitoring (principal); Z79.01 Long term (current) use of anticoagulants
CPT/HCPCS: 36415; 85610; 99211; G0463

== ENCOUNTER 2018-05-26 11:29 | Outpatient (CLI) | payer MEDICARE, MEDICAID, SELFPAY ==
[2018-05-26 11:57] LABS: PHA INR Fingerstick 2.3 (0.9-1.1)
== END 2018-05-26 11:59 | disposition home or self-care (01) ==
LOC: ACC 11:30
PROVIDERS: PCP Internal Medicine Adolescent Medicine; Visit Provider Internal Medicine
DX: Z51.81 Encounter for therapeutic drug level monitoring (principal); Z79.01 Long term (current) use of anticoagulants; I23.6 Thrombosis of atrium, auricular appendage, and ventricle as current complications following acute myocardial infarction
CPT/HCPCS: 85610; 99211; G0463

== ENCOUNTER 2018-05-30 11:20 | Outpatient (CLI) | payer MEDICARE, MEDICAID, SELFPAY ==
[2018-05-30 14:43] LABS: PHA INR Fingerstick 2.4 (0.9-1.1)
== END 2018-05-30 15:09 | disposition home or self-care (01) ==
LOC: ACC 11:22
PROVIDERS: PCP Internal Medicine Adolescent Medicine; Visit Provider Internal Medicine
DX: Z51.81 Encounter for therapeutic drug level monitoring (principal); Z79.01 Long term (current) use of anticoagulants; I23.6 Thrombosis of atrium, auricular appendage, and ventricle as current complications following acute myocardial infarction
CPT/HCPCS: 85610; 99211; G0463

== ENCOUNTER 2018-06-09 11:26 | Outpatient (CLI) | payer MEDICARE, MEDICAID, SELFPAY ==
[2018-06-09 14:51] LABS: PHA INR Fingerstick 2.7 (0.9-1.1)
== END 2018-06-09 14:54 | disposition home or self-care (01) ==
LOC: ACC 11:27
PROVIDERS: PCP Internal Medicine Adolescent Medicine; Visit Provider Internal Medicine
DX: Z51.81 Encounter for therapeutic drug level monitoring (principal); Z79.01 Long term (current) use of anticoagulants; I23.6 Thrombosis of atrium, auricular appendage, and ventricle as current complications following acute myocardial infarction
CPT/HCPCS: 85610; 99211; G0463

== ENCOUNTER → 2018-06-13 09:35 | Outpatient (CLI) | payer MEDICARE, MEDICAID, SELFPAY ==
[2018-06-13 14:00] LABS: Basophils % 0.5 % (0.1-2.0); Eosinophils # 0.2 K/mm3 (0.0-0.4); Eosinophils % 2.5 % (0.1-12.0); Hematocrit 45.9 % (37.0-47.0); Hemoglobin 14.7 g/dL (12.2-16.2); Lymphocytes # 1.3 K/mm3 (0.7-4.5); Mean Corpuscular HGB Conc 32.1 g/dL (31.8-35.4); Mean Corpuscular Hemoglobin 27.7 pg (27.0-31.2); Mean Corpuscular Volume 86.4 fl (81-99); Mean Platelet Volume 7.1 fl (7.4-10.4); Monocytes # 0.4 K/mm3 (0.1-1.0); Monocytes % 5.4 % (1.7-9.3); Neutrophils # 5.5 K/mm3 (1.8-7.8); Neutrophils % 74.5 % (37.0-80.0); Platelet Count 304 K/mm3 (142-424); Red Blood Count 5.31 M/mm3 (4.20-5.40); Red Cell Distribution Width 14.2 % (11.5-17.5); White Blood Count 7.4 K/mm3 (4.8-10.8)
[2018-06-13 14:39] LABS: Hemoglobin A1C 6.5 % (0.0-7.0)
[2018-06-13 15:12] LABS: Anion Gap 15.8 mEq/L (5-15); Blood Urea Nitrogen 11 mg/dL (7-18); Calcium 8.7 mg/dL (8.5-10.1); Carbon Dioxide 26 mmol/L (21.0-32.0); Chloride 102 mmol/L (98-107); Chol/HDL Ratio 3.7 (1-3.5); Cholesterol 146 mg/dL (140-200); Creatinine,Serum 0.77 mg/dL (0.55-1.02); Estimated Glomerular Filt Rate 75 ml/min (>60); GFR (African American) 90 ML/MIN (>60); Glucose 137 mg/dL (74-106); HDL Cholesterol 39 mg/dL (29-89); LDL Cholesterol 84 mg/dL (0-130); Potassium 3.8 mmoL/L (3.5-5.1); Sodium 140 mmol/L (136-145); Triglycerides 113 mg/dL (30-200); VLDL Cholesterol 23 mg/dL (0-40)
== END ==
PROVIDERS: PCP Internal Medicine Adolescent Medicine; Visit Provider Internal Medicine Adolescent Medicine
DX: I10 Essential (primary) hypertension (principal); Z79.899 Other long term (current) drug therapy
CPT/HCPCS: 36415; 80048; 80061; 83036; 85025

== ENCOUNTER 2018-06-23 11:21 | Outpatient (CLI) | payer MEDICARE, MEDICAID, SELFPAY ==
[2018-06-23 13:20] LABS: PHA INR Fingerstick 2.7 (0.9-1.1)
== END 2018-06-23 13:26 | disposition home or self-care (01) ==
LOC: ACC 11:23
PROVIDERS: PCP Internal Medicine Adolescent Medicine; Visit Provider Internal Medicine
DX: Z51.81 Encounter for therapeutic drug level monitoring (principal); Z79.01 Long term (current) use of anticoagulants; I23.6 Thrombosis of atrium, auricular appendage, and ventricle as current complications following acute myocardial infarction
CPT/HCPCS: 85610; 99211; G0463

== ENCOUNTER 2018-07-10 11:23 | Outpatient (CLI) | payer MEDICARE, MEDICAID, SELFPAY ==
[2018-07-10 14:18] LABS: PHA INR Fingerstick 2.8 (0.9-1.1)
== END 2018-07-10 16:20 | disposition home or self-care (01) ==
LOC: ACC 11:25
PROVIDERS: PCP Internal Medicine Adolescent Medicine; Visit Provider Internal Medicine
DX: Z51.81 Encounter for therapeutic drug level monitoring (principal); Z79.01 Long term (current) use of anticoagulants; I23.6 Thrombosis of atrium, auricular appendage, and ventricle as current complications following acute myocardial infarction
CPT/HCPCS: 85610; 99211; G0463

== ENCOUNTER 2018-07-24 11:21 | Outpatient (CLI) | payer MEDICARE, MEDICAID, SELFPAY ==
[2018-07-24 11:54] LABS: PHA INR Fingerstick 2.7 (0.9-1.1)
== END 2018-07-24 11:55 | disposition home or self-care (01) ==
LOC: ACC 11:22
PROVIDERS: PCP Internal Medicine Adolescent Medicine; Visit Provider Internal Medicine
DX: Z51.81 Encounter for therapeutic drug level monitoring (principal); Z79.01 Long term (current) use of anticoagulants; I23.6 Thrombosis of atrium, auricular appendage, and ventricle as current complications following acute myocardial infarction
CPT/HCPCS: 85610; 99211; G0463

== ENCOUNTER → 2018-08-04 10:43 | Outpatient (CLI) | payer MEDICARE, MEDICAID, SELFPAY ==
--- NOTE | 2018-08-04 10:47 | CA_ITS ---
PROCEDURE: 2-D M-mode and color Doppler study INDICATIONS FOR THE TEST: Chest pain COPD Heart Murmur Tobacco Smoking Palpitations Fatigue Syncope Edema Hypertension Diabetes Mellitus Rheumatic Fever SOB JIMÉNEZ Obesity Hyperlipidemia Family History HD Additional History APICAL THROMBUS,CAD,CHF DEFINITY GIVEN EF 25% 05/06/18 TDS PATIENT INFORMATION HEIGHT: 69 WEIGHT:235 GENDER: Female B/P:145/79 2-D/M-MODE INTERPRETATION: 2-D MEASUREMENTS OBSERVED VALUES IN CMS Right Ventricular Dimension (RVDd) 2.2 Interventricular Septum (Thickness)(IVsd) .9 Left Ventricular Internal Dimensions(LVIDd) 5.3 Left Ventricular Posterior Wall (Thickness)(LVPWd) .9 Aortic Root 3.1 Aortic Cusp Separation 1.7 Left Atrial Dimensions (LAD) 3.6 2D 1. Left atrium is moderately enlarged, left ventricle is mildly dilated, there is severe left ventricular systolic function, visually estimated ejection fraction approximately 25%, there is marked hypokinesis involving the mid to distal septum, anterior, anteroapical and apical wall. Definity contrast was utilized to delineate endocardial surfaces, there is no left ventricular thrombus seen. 2. The right atrium and right ventricle are normal size and contractility. 3. The aortic valve is minimally thickened and fibrosed. 4. The mitral and tricuspid valve leaflets are minimally thickened 5. The pulmonic valve is poorly visualized. 6. No significant pericardial effusion noted. DOPPLER INTERROGATION: Doppler interrogation of the aortic, mitral and tricuspid valvular presence of mitral regurgitation, which is difficult to quantify it likely in severe range. There is mild tricuspid regurgitation seen, calculated right ventricular systolic pressure of 52 mmHg consistent with moderate pulmonary hypertension. CONCLUSION: 1. Moderately enlarged left atrium, mildly dilated left ventricle, severely ventricular systolic function visually estimated ejection fraction 25% with multiple segmental wall motion abnormalities described above, diastolic parameters are not calculated in this study. There is no left ventricular thrombus seen. 2. Likely seen in the mitral and mild tricuspid regurgitation calculated right ventricular systolic pressure is 52 mmHg consistent with moderate pulmonary hypertension. 3. No significant pericardial effusion noted.
== END ==
PROVIDERS: PCP Internal Medicine Adolescent Medicine; Visit Provider Internal Medicine
DX: I23.6 Thrombosis of atrium, auricular appendage, and ventricle as current complications following acute myocardial infarction (principal); I25.5 Ischemic cardiomyopathy; I50.21 Acute systolic (congestive) heart failure; I51.9 Heart disease, unspecified
CPT/HCPCS: 93306; Q9957

== ENCOUNTER → 2018-10-30 18:26 | Outpatient (CLI) | payer MEDICARE, MEDICAID, SELFPAY | PROVIDERS: PCP Internal Medicine Adolescent Medicine; Visit Provider Internal Medicine | DX: G47.33 Obstructive sleep apnea (adult) (pediatric) (principal) | CPT/HCPCS: G0399 ==

== ENCOUNTER 2018-11-23 12:18 | Observation (INO) ==
--- NOTE | 2018-11-23 12:38 | Emergency Department Note ---
ED Disposition Clinical Impression: Biliary colic, Cholelithiasis Disposition: Admitted as Observation Condition on Discharge: Fair Referrals: Sanjeev Vicente MD [Primary Care Provider] - Time of Disposition: 15:12 - Critical Care Critical Care Time: No Attestation: On 11/23/18, the high probability of a clinically significant, sudden or life threatening deterioration of the following system(s) required my full and direct attention, intervention and personal management. The time I documented below is in addition to time spent performing reported procedures but includes the following listed in this critical care notation. Medical Decision Making - Medical Records Medical records reviewed: Yes: I reviewed the patient's medical records. - Torsten Inquiry Pt receiving controlled substance: No Torsten was queried for this patient: No Vital Signs: 11/23/18 12:19 11/23/18 12:50 11/23/18 13:55 Temperature 98.1 F Temperature Source Oral Pulse Rate [Left Radial] 65 69 62 Respiratory Rate 16 Blood Pressure [Right Arm] 123/71 131/88 126/70 Blood Pressure Mean [Right Arm] 88 102 88 Blood Pressure Source [Right Arm] Automatic Cuff Automatic Cuff Automatic Cuff Blood Pressure Position [Right Arm] Sitting Sitting Supine 02 Sat by Pulse Oximetry 96 94 L 94 L Oxygen Delivery Method Room Air Room Air Nasal Cannula 11/23/18 14:42 11/23/18 15:00 Temperature Temperature Source Pulse Rate [Left Radial] 65 86 Respiratory Rate Blood Pressure [Right Arm] 131/68 123/60 Blood Pressure Mean [Right Arm] 89 81 Blood Pressure Source [Right Arm] Automatic Cuff Automatic Cuff Blood Pressure Position [Right Arm] Supine Supine 02 Sat by Pulse Oximetry 96 94 L Oxygen Delivery Method Room Air Room Air - Lab Data Lab results reviewed: Yes: I reviewed the patient's lab results. Lab Results 11/23/18 12:30: WBC 12.2 H, RBC 5.07, Hgb 13.4, Hct 42.0, MCV 83.0, MCH 26.5 L, MCHC 32.0, RDW 13.5, Plt Count 259, MPV 7.1 L, Neut % (Auto) 87.9 H, Lymph % (Auto) 7.1 L, Hickman % (Auto) 4.1, Eos % (Auto) 0.7, Baso % (Auto) 0.2, Neut # (Auto) 10.7 H, Lymph # (Auto) 0.9, Hickman # (Auto) 0.5, Eos # (Auto) 0.1, Baso # (Auto) 0.0, Total Counted 100, Neutrophils % (Manual) 89 H, Band Neutrophils % 3.0, Lymphocytes % (Manual) 3 L, Atypical Lymphs % 2.0, Monocytes % (Manual) 3, Platelet Estimate Normal, RBC Morphology Normal 11/23/18 12:30: Sodium 137, Potassium 4.2, Chloride 102, Carbon Dioxide 25, Anion Gap 14.2, BUN 18, Creatinine 0.90, Estimated Creat Clear 88, Estimated GFR 62, Est GFR ( Amer) 75, Glucose 140 H, Calcium 8.6, Total Bilirubin 1.0, AST 13 L, ALT 22, Alkaline Phosphatase 113, Troponin I < 0.02, Total Protein 6.9, Albumin 3.6, Globulin 3.3 H, Albumin/Globulin Ratio 1.1, Amylase 31, Lipase 67 L Result diagrams: 11/23/18 12:30 11/23/18 12:30 Orders (Tests/Meds): ED MEDICATIONS Discontinued Medications Generic Name Dose Route Start Last Admin Trade Name Freq PRN Reason Stop Dose Admin Belladonna Alkaloids 60 ml 11/23/18 12:35 11/23/18 12:36 Gi Cocktail 60ml Udc PO 11/23/18 12:36 60 ml ONCE ONE Administration Hydromorphone HCl 0.5 mg 11/23/18 13:55 11/23/18 13:56 Dilaudid 2mg/Ml Syringe IV 11/23/18 13:56 0.5 mg ONCE ONE Administration Ioversol 75 ml 11/23/18 13:33 11/23/18 13:34 Rad-Optiray 350 100ml Vial IV 11/23/18 13:34 75 ml ONCE ONE Administration Protocol Morphine Sulfate 1 mg 11/23/18 12:46 11/23/18 12:47 Morphine 2mg/Ml Syringe IV 11/23/18 12:47 1 mg ONCE ONE Administration Morphine Sulfate 2 mg 11/23/18 12:47 11/23/18 13:05 Morphine 4mg/Ml Syringe IV 11/23/18 12:48 2 mg ONCE ONE Administration Ondansetron HCl 4 mg 11/23/18 12:47 11/23/18 12:47 Zofran 4mg/2ml Vial IV 11/23/18 12:48 4 mg ONCE ONE Administration Ondansetron HCl 4 mg 11/23/18 13:55 11/23/18 13:56 Zofran 4mg/2ml Vial IV 11/23/18 13:56 4 mg ONCE ONE Administration Sodium Chloride 10 ml 11/23/18 13:33 11/23/18 13:34 Rad-Saline Flush 10ml Syringe IV 11/23/18 13:34 10 ml ONCE ONE Administration ORDERS Category Date Time Status Chest XR 2 view (NOT portable) [XR chest 2V] Stat Exams 11/23/18 12:24 Taken - CT Data CT Scan: Abdomen, Pelvis Time Received: 15:[address] Reviewed: Yes: I have reviewed the patient's CT results, I have viewed the radiologist's interpretation Findings Narrative: multple stones, minimal inflammation near neck, hepatobiliary tree unremarkable, alk phos and bili are normal - Physician Consults Physician Consulted: lali Time: 15:11 Reason -: Admission Comment/Response: admit npo, pain control fluids Additional Consult: amadou Time: 15:31 Additional Consult: stop antiplatelets Abdominal Pain HPI - General Stated Complaint: Back and belly pain Time Seen by Provider: 11/23/18 12:38 Mode of Arrival: Ambulatory Source of Information: Patient Limitations: No Limitations - History of Present Illness HPI narrative: patient is s/p coronary stenting less than two years ago, mid LAD. Circ and RCA with noncritical disease. Scar seen on EKG, no CHF reported by patient or family. Awoke early am with mid-epigastric pain which radiates to bilateral flanks and mid-thoracic area...R>L Symptoms severe enough to have evaluated x 2 are unlike symptoms associated with her SC. 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 from deep sleep. She's on daily ppi which should reduce her likelihood of having severe pain of esophagitis, sympoms are pain predominant... no real heartburn or other. Differential of course includes biliary colic with/without calculus. She has no evidence on record of previous evaluation of gall bladder. - Related Data Home Medications Medication Instructions Recorded Confirmed Aspirin [Aspirin 81mg EC Tab] 81 mg PO DAILY 08/20/18 11/23/18 Ticagrelor [Brilinta 90mg Tablet] 90 mg PO BID 08/20/18 11/23/18 raNITIdine HCl [Ranitidine HCl] 150 mg PO DAILY 08/20/18 11/23/18 Carvedilol [Carvedilol 6.25mg Tab] 6.25 mg PO BID 11/23/18 11/23/18 Pantoprazole Sodium [Protonix 40mg 40 mg PO DAILY 11/23/18 11/23/18 tablet] Previous Rx's Medication Instructions Recorded lorazepam 0.5 mg tablet 0.5 mg PO .every 8 hours PRN #90 05/06/18 tab nitroglycerin 0.4 mg sublingual 0.4 mg SUBLINGUAL Q5MINP PRN #25 05/13/18 tablet tab.subl losartan 25 mg tablet 25 mg PO BID #60 tab 09/24/18 atorvastatin 40 mg tablet 40 mg PO HS #30 tab 10/29/18 Allergies Allergy/AdvReac Type Severity Reaction Status Date / Time Sulfa (Sulfonamide Allergy Mild Verified 10/24/18 03:39 Antibiotics) [SULFA (SULFONAMIDE ANTIBIOTICS)] [facility] History - Hepatitis A Screen Attestation statement:: This patient has been screened for Hepatitis A risk factors. I have reviewed the patient's past medical history: Yes Medical History: Reports:: Anxiety, Congestive Heart Failure, Coronary Artery Disease, Hyperlipidemia, Hypertension, Internal Pacemaker, Myocardial Infarction Denies:: Cancer, Diabetes Mellitus Type 1, Diabetes Mellitus Type 2, MRSA, Seizures Other Medical History: Denies: Blood Transfusion Reaction Comment: Allergies Other Surgeries: Yes: Cardiac Catheterization, Coronary Stent, Pacemaker, Other (Polyp removed from uterus ) Amputation: No Fractures: No Comment: Polyp removed from uterus - Social History Smoking Status: Former smoker Alcohol Intake: never Substance Use Type: denies use Occupational Status: retired - Psychiatric History Pschychiatric History:: Reports:: Anxiety Family Hx:: Cancer, Heart Attack Comment: Sister-SC around 60's ROS Obtained: Yes All systems reviewed & no additional complaints - Constitutional Constitutional: Denies fever(s) - ENT Ears, Nose, Mouth, and Throat: Denies dizziness, Denies sore throat, Denies throat swelling, Denies ringing in the ears - Cardiovascular Cardiovascular: Reports chest pain, Reports chest pain at rest, Reports dyspnea - Respiratory Respiratory: No chest congestion, No cough, No dyspnea - Gastrointestinal Gastrointestingal: Reports: abdominal pain, other (on daily ppi). Denies: diarrhea, dyspepsia, nausea, vomiting - Musculoskeletal Musculoskeletal: Denies joint pain, Denies joint stiffness, Denies joint swelling - Integumentary/Breasts Skin/Breast: Denies rash, Denies skin pain - Neurologic Neurologic: Denies syncope, Denies vertigo, Denies weakness Physical Exam - General General appearance: alert, in no apparent distress - Head Head exam: other (nodular mass frontal scalp) - Eye Eye exam: Absent: scleral icterus - Neck Neck exam: Present: normal inspection, full ROM, trachea midline. Absent: meningismus, lymphadenopathy - Respiratory Respiratory exam: Present: normal lung sounds bilaterally. Absent: respiratory distress - Cardiovascular Cardiovascular exam: Present: regular rate, normal rhythm. Absent: JVD - Abdominal Exam Abdominal exam: Present: soft, tenderness. Absent: distention, guarding, organo megaly, hernia Abdominal tenderness: Present: epigastrium, mild Comment: negative gino's sign - Extremities Exam Extremities exam: Present: normal inspection, full ROM, normal capillary refill. Absent: calf tenderness - Back Exam Back exam: Present: normal inspection. Absent: tenderness - Neurological Exam Neurological exam: Present: alert, oriented X3 - Psychiatric Psychiatric exam: Present: normal affect, normal mood - Skin Skin exam: Present: warm, dry, intact, normal color
[2018-11-23 12:41] LABS: Basophils % 0.2 % (0.1-2.0); Eosinophils # 0.1 K/mm3 (0.0-0.4); Eosinophils % 0.7 % (0.1-12.0); Hemoglobin 13.4 g/dL (12.2-16.2); Lymphocytes # 0.9 K/mm3 (0.7-4.5); Lymphocytes % 7.1 % (10-50); Mean Platelet Volume 7.1 fl (7.4-10.4); Monocytes # 0.5 K/mm3 (0.1-1.0); Monocytes % 4.1 % (1.7-9.3); Neutrophils # 10.7 K/mm3 (1.8-7.8); Neutrophils % 87.9 % (37.0-80.0); Platelet Count 259 K/mm3 (142-424); Red Blood Count 5.07 M/mm3 (4.20-5.40); Red Cell Distribution Width 13.5 % (11.5-17.5); White Blood Count 12.2 K/mm3 (4.8-10.8)
[2018-11-23 12:55] LABS: Alanine Aminotransferase 22 U/L (12-78); Albumin Level 3.6 gm/dL (3.4-5.0); Albumin/Globulin Ratio 1.1 (1.1-1.8); Alkaline Phosphatase 113 U/L (46-116); Amylase 31 U/L (25-115); Anion Gap 14.2 mEq/L (5-15); Aspartate Amino Transferase 13 U/L (15-37); Blood Urea Nitrogen 18 mg/dL (7-18); Calcium 8.6 mg/dL (8.5-10.1); Carbon Dioxide 25 mmol/L (21.0-32.0); Chloride 102 mmol/L (98-107); Globulin 3.3 gm/dl (1.3-3.2); Glucose 140 mg/dL (74-106); Lymphocytes % 3 % (10-50); Monocytes % 3 % (2-9); Neutrophils % 89 % (42-76); RBC Morphology Normal; Sodium 137 mmol/L (136-145); Total Cells Counted 100; Total Protein,Serum 6.9 gm/dL (6.4-8.2)
[2018-11-23 15:27] LABS: Microscopic, Urine URINE MICROSCOPIC (MICROSCOPIC)
[2018-11-23 15:43] LABS: Appearance,Urine SL CLOUDY (Clear); Bilirubin,Urine Negative (Negative); Blood, Urine Negative (Negative); Color,Urine YELLOW (Yellow); Glucose,Urine (UA) Negative (Negative); Ketones,Urine TRACE (Negative); Leukocyte Esterase,Urine Negative (Negative); PH,Urine 5.5 (5.0-8.5); Protein,Urine Negative (Negative)
[2018-11-23 15:51] LABS: Bacteria,Urine 2+ /lpf
[2018-11-23 15:52] LABS: WBC,Urine Occasional #/hpf (0-3)
[2018-11-24 07:01] LABS: Basophils % 0.2 % (0.1-2.0); Eosinophils % 0.2 % (0.1-12.0); Hematocrit 41.4 % (37.0-47.0); Hemoglobin 13.5 g/dL (12.2-16.2); Lymphocytes # 0.8 K/mm3 (0.7-4.5); Lymphocytes % 5.6 % (10-50); Mean Corpuscular HGB Conc 32.6 g/dL (31.8-35.4); Mean Corpuscular Volume 82.9 fl (81-99); Mean Platelet Volume 6.8 fl (7.4-10.4); Monocytes # 1.1 K/mm3 (0.1-1.0); Monocytes % 7.5 % (1.7-9.3); Neutrophils # 13.1 K/mm3 (1.8-7.8); Neutrophils % 86.6 % (37.0-80.0); Platelet Count 234 K/mm3 (142-424); Red Blood Count 4.99 M/mm3 (4.20-5.40); Red Cell Distribution Width 13.6 % (11.5-17.5); White Blood Count 15.2 K/mm3 (4.8-10.8)
[2018-11-24 07:26] LABS: Anion Gap 14.8 mEq/L (5-15)
--- NOTE | 2018-11-24 07:38 | Pharmacy Consult Notes ---
[facility] Pharmacy VTE Monitoring - Patient Demographics Admission date: 11/23/18 Report Date: 11/24/18 Time: 07:38 Allergies/Adverse Reactions: Patient Allergies Sulfa (Sulfonamide Antibiotics) [SULFA (SULFONAMIDE ANTIBIOTICS)] Allergy (Mild, Verified 10/24/18 03:39) Height: 1.73 m Weight: 100.953 kg Patient Problems: Current Active Problems (Updated 11/23/18 @ 15:12 by Marcel Arndt MD) Biliary colic (Acute) Cholelithiasis (Acute) - VTE Risk Labs: VTE Related Lab Results Hgb 13.5 g/dL (12.2-16.2) 11/24/18 06:43 Hct 41.4 % (37.0-47.0) 11/24/18 06:43 Plt Count 234 K/mm3 (142-424) 11/24/18 06:43 BUN 12 mg/dL (7-18) D 11/24/18 06:43 Creatinine 0.85 mg/dL (0.55-1.02) 11/24/18 06:43 Estimated Creat Clear 86 mL/min (50-200) 11/24/18 06:43 Was VTE Risk Assessment Performed: Yes VTE Score: 4 VTE Risk Level: Low Risk - Prophylaxis VTE Prophylaxis Ordered?: Yes Types of VTE Prophylaxis: TEDS Knee High Location of Applied Device: Bilateral Lower Extremeties - VTE Diagnosis Confirmed Treatment or plan recommended: Continue Current Treatment
[2018-11-24 08:02] VITALS: BP 127/78
[2018-11-24 08:44] LABS: Lymphocytes % 3 % (10-50); Monocytes % 4 % (2-9); Neutrophils % 90 % (42-76); RBC Morphology Normal; Total Cells Counted 100
--- NOTE | 2018-11-24 09:00 | H&P/Discharge Summary ---
General - General Admission date:: 11/23/18 Discharge date: 11/24/18 *Admission Date: 11/23/18 *Chief complaint: Right upper quadrant pain *History of present illness: 68-year-old white female with significant cardiac history of [place] at the end of April 2018 with stent placement, along with systolic congestive heart failure, ejection fraction 35% with pacemaker placement at that time. 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 This improves with sitting up straight, and previous cardiac work-up has been negative for recurrent evidence of disease, but she had another episode on the morning of admission and came to the hospital. CT scan of the abdomen and chest revealed significant evidence of gallbladder disease with some wall thickening and stones, and she did note that the episodes seem to be food related. She was admitted overnight for pain control and observation. [facility] History I have reviewed the patient's past medical history: Yes Medical History: Reports:: Anxiety, Congestive Heart Failure, Coronary Artery Disease, Hyperlipidemia, Hypertension, Internal Pacemaker, Myocardial Infarction Denies:: Cancer, Diabetes Mellitus Type 1, Diabetes Mellitus Type 2, MRSA, Seizures *Have you ever received a pneumonia vaccine?: No *Have you received a flu vaccine this season?: No Other Medical History: Denies: Blood Transfusion Reaction Other Surgeries: Yes: Cardiac Catheterization, Coronary Stent, Pacemaker, Other (Polyp removed from uterus ) Amputation: No Fractures: No - *Social History Smoking Status: Former smoker Alcohol Intake: never Substance Use Type: denies use *Occupational Status:: retired *Travel in the last 8 weeks: None - Psychiatric History Expresses thoughts of harming self/others: None Suicide Plan Description: No Plan Pschychiatric History:: Reports:: Anxiety Family Hx:: Cancer, Heart Attack Review of Systems - Review of Systems Review of systems:: pertinent systems reviewed and negative unless documented below Currently patient feels well, denies cardiac, pulmonary or GI symptoms. No issues with neurologic dysfunction. No issues with activities of daily living. Able to walk, climb 1 flight of steps and do housework without dyspnea. - *Neurologic Denies dizziness, Denies fainting, Denies dizziness, Denies weakness Exam Vital signs and Labs for Last 24 Hours: Temp Pulse Resp BP Pulse Ox 98.9 F 88 18 127/78 95 11/24/18 08:00 11/24/18 08:00 11/24/18 08:00 11/24/18 08:00 11/24/18 08:00 Laboratory Results - last 24 hr 11/23/18 12:30: WBC 12.2 H, RBC 5.07, Hgb 13.4, Hct 42.0, MCV 83.0, MCH 26.5 L, MCHC 32.0, RDW 13.5, Plt Count 259, MPV 7.1 L, Neut % (Auto) 87.9 H, Lymph % (Auto) 7.1 L, [place] % (Auto) 4.1, Eos % (Auto) 0.7, Baso % (Auto) 0.2, Neut # (Auto) 10.7 H, Lymph # (Auto) 0.9, [place] # (Auto) 0.5, Eos # (Auto) 0.1, Baso # (Auto) 0.0, Total Counted 100, Neutrophils % (Manual) 89 H, Band Neutrophils % 3.0, Lymphocytes % (Manual) 3 L, Atypical Lymphs % 2.0, Monocytes % (Manual) 3, Platelet Estimate Normal, RBC Morphology Normal 11/23/18 12:30: Sodium 137, Potassium 4.2, Chloride 102, Carbon Dioxide 25, Anion Gap 14.2, BUN 18, Creatinine 0.90, Estimated Creat Clear 88, Estimated GFR 62, Est GFR ( Amer) 75, Glucose 140 H, Calcium 8.6, Total Bilirubin 1.0, AST 13 L, ALT 22, Alkaline Phosphatase 113, Troponin I < 0.02, Total Protein 6.9, Albumin 3.6, Globulin 3.3 H, Albumin/Globulin Ratio 1.1, Amylase 31, Lipase 67 L 11/23/18 15:20: Urine Color Yellow, Urine Appearance Sl cloudy, Urine pH 5.5, Ur Specific [place] 1.010, Urine Protein Negative, Urine Glucose (UA) Negative, Urine Ketones Trace, Urine Blood Negative, Urine Nitrate Negative, Urine Bilirubin Negative, Urine Urobilinogen 1.0, Ur Leukocyte Esterase Negative, Urine WBC Occasional, Ur Squamous Epith Cells 5-10, Urine Bacteria 2+ 11/24/18 06:43: WBC 15.2 H, RBC 4.99, Hgb 13.5, Hct 41.4, MCV 82.9, MCH 27.0, MCHC 32.6, RDW 13.6, Plt Count 234, MPV 6.8 L, Neut % (Auto) 86.6 H, Lymph % (Auto) 5.6 L, [place] % (Auto) 7.5, Eos % (Auto) 0.2, Baso % (Auto) 0.2, Neut # (Auto) 13.1 H, Lymph # (Auto) 0.8, [place] # (Auto) 1.1 H, Eos # (Auto) 0.0, Baso # (Auto) 0.0, Total Counted 100, Neutrophils % (Manual) 90 H, Band Neutrophils % 2.0, Lymphocytes % (Manual) 3 L, Atypical Lymphs % 1.0, Monocytes % (Manual) 4, Platelet Estimate Normal, RBC Morphology Normal 11/24/18 06:43: Sodium 137, Potassium 3.8, Chloride 103, Carbon Dioxide 23, A nion Gap 14.8, BUN 12 D, Creatinine 0.85, Estimated Creat Clear 86, Estimated GFR 67, Est GFR ( Amer) 80, Glucose 118 H, Calcium 8.0 L I & O for Last 24 hours: Intake & Output 11/21/18 11/22/18 11/23/18 11/24/18 11:59 11:59 11:59 11:59 Intake Total 2034 Balance 2034 Weight 222 lb 9 oz Microbiology Reports for the Last 24 Hours: Microbiology 11/23/18 15:20 Urine,Clean Catch Urine Culture - Final Multiple organisms, suggests contamination. Narrative: Patient is pleasant, alert, no scleral icterus. No jaundice. No JVD. Lungs clear. Heart rate regular. Pacemaker incision site looks good. Abdomen soft, minimal right upper quadrant pain but patient is somewhat guarded and I am not sure exactly how much pain she is having right now. No distal edema, moves all extremities well. Hospital Course Hospital Course: Patient was admitted, lab studies were unremarkable. Troponin negative. CT scan reviewed as above. Patient subjected to right upper quadrant ultrasound. Patient was seen by cardiology to do preliminary evaluation for possible upper scopic cholecystectomy. Patient will be discharged home, close follow-up with surgery, I recommended that she hold her antiplatelet agent given the fact she is been over 7 months since stent placement in preparation for probable surgical intervention. Results Labs on day of discharge: Labs from last 24 hours 11/24/18 11/24/18 11/23/18 06:43 06:43 15:20 WBC 15.2 H RBC 4.99 Hgb 13.5 Hct 41.4 MCV 82.9 MCH 27.0 MCHC 32.6 RDW 13.6 Plt Count 234 MPV 6.8 L Neut % (Auto) 86.6 H Lymph % (Auto) 5.6 L [place] % (Auto) 7.5 Eos % (Auto) 0.2 Baso % (Auto) 0.2 Neut # (Auto) 13.1 H Lymph # (Auto) 0.8 [place] # (Auto) 1.1 H Eos # (Auto) 0.0 Baso # (Auto) 0.0 Total Counted 100 Neutrophils % (Manual) 90 H Band Neutrophils % 2.0 Lymphocytes % (Manual) 3 L Atypical Lymphs % 1.0 Monocytes % (Manual) 4 Platelet Estimate Normal RBC Morphology Normal Sodium 137 Potassium 3.8 Chloride 103 Carbon Dioxide 23 Anion Gap 14.8 BUN 12 D Creatinine 0.85 Estimated Creat Clear 86 Estimated GFR 67 Est GFR ( Amer) 80 Glucose 118 H Calcium 8.0 L Total Bilirubin AST ALT Alkaline Phosphatase Troponin I Total Protein Albumin Globulin Albumin/Globulin Ratio Amylase Lipase Urine Color Yellow Urine Appearance Sl cloudy Urine pH 5.5 Ur Specific [place] 1.010 Urine Protein Negative Urine Glucose (UA) Negative Urine Ketones Trace Urine Blood Negative Urine Nitrate Negative Urine Bilirubin Negative Urine Urobilinogen 1.0 Ur Leukocyte Esterase Negative Urine WBC Occasional Ur Squamous Epith Cells 5-10 Urine Bacteria 2+ 11/23/18 11/23/18 12:30 12:30 WBC 12.2 H RBC 5.07 Hgb 13.4 Hct 42.0 MCV 83.0 MCH 26.5 L MCHC 32.0 RDW 13.5 Plt Count 259 MPV 7.1 L Neut % (Auto) 87.9 H Lymph % (Auto) 7.1 L [place] % (Auto) 4.1 Eos % (Auto) 0.7 Baso % (Auto) 0.2 Neut # (Auto) 10.7 H Lymph # (Auto) 0.9 [place] # (Auto) 0.5 Eos # (Auto) 0.1 Baso # (Auto) 0.0 Total Counted 100 Neutrophils % (Manual) 89 H Band Neutrophils % 3.0 Lymphocytes % (Manual) 3 L Atypical Lymphs % 2.0 Monocytes % (Manual) 3 Platelet Estimate Normal RBC Morphology Normal Sodium 137 Potassium 4.2 Chloride 102 Carbon Dioxide 25 Anion Gap 14.2 BUN 18 Creatinine 0.90 Estimated Creat Clear 88 Estimated GFR 62 Est GFR ( Amer) 75 Glucose 140 H Calcium 8.6 Total Bilirubin 1.0 AST 13 L ALT 22 Alkaline Phosphatase 113 Troponin I < 0.02 Total Protein 6.9 Albumin 3.6 Globulin 3.3 H Albumin/Globulin Ratio 1.1 Amylase 31 Lipase 67 L Urine Color Urine Appearance Urine pH Ur Specific [place] Urine Protein Urine Glucose (UA) Urine Ketones Urine Blood Urine Nitrate Urine Bilirubin Urine Urobilinogen Ur Leukocyte Esterase Urine WBC Ur Squamous Epith Cells Urine Bacteria DS: Diagnosis - Discharge Diagnosis (1) Systolic congestive heart failure Status: Chronic (2) Biliary colic Status: Acute (3) Cholelithiasis Status: Acute (4) LV dysfunction Status: Chronic Discharge Plan - Patient Discharge Instructions ACTIVITY: Continue current activity DIET: low fat, low cholesterol Patient Instructions: Gallstones, DI for Gallstones, DI for Biliary Colic - Follow up Plan Follow up with: Bolivar Garcia MD [Staff Physician] - Disposition: Home, Self-Longterm Medications: Home Medications Medication Instructions Recorded Confirmed Type nitroglycerin 0.4 mg sublingual 0.4 mg SUBLINGUAL Q5MINP PRN #25 05/13/18 11/23/18 Rx tablet tab.subl Aspirin [Aspirin 81mg EC Tab] 81 mg PO DAILY 08/20/18 11/23/18 History Ticagrelor [Brilinta 90mg Tablet] 90 mg PO BID 08/20/18 11/23/18 History raNITIdine HCl [Ranitidine HCl] 150 mg PO DAILY 08/20/18 11/23/18 History losartan 25 mg tablet 25 mg PO BID #60 tab 09/24/18 11/23/18 Rx atorvastatin 40 mg tablet 40 mg PO HS #30 tab 10/29/18 11/23/18 Rx Carvedilol [Carvedilol 6.25mg Tab] 6.25 mg PO BID 11/23/18 11/23/18 History Pantoprazole Sodium [Protonix 40mg 40 mg PO DAILY 11/23/18 11/23/18 History tablet] LORazepam [Lorazepam 0.5mg Tablet] 0.5 mg PO Q8HP PRN 11/24/18 11/24/18 History Prescriptions/Medication Reconciliation: No Action nitroglycerin 0.4 mg sublingual tablet 0.4 mg SUBLINGUAL Q5MINP PRN #25 tab.subl PRN Reason: Chest Pain losartan 25 mg tablet 25 mg PO BID #60 tab atorvastatin 40 mg tablet 40 mg PO HS #30 tab raNITIdine HCl [Ranitidine HCl] 150 mg PO DAILY Aspirin [Aspirin 81mg EC Tab] 81 mg PO DAILY Carvedilol [Carvedilol 6.25mg Tab] 6.25 mg PO BID Ticagrelor [Brilinta 90mg Tablet] 90 mg PO BID Pantoprazole Sodium [Protonix 40mg tablet] 40 mg PO DAILY LORazepam [Lorazepam 0.5mg Tablet] 0.5 mg PO Q8HP PRN PRN Reason: Anxiety
--- NOTE | 2018-11-24 09:41 | Consult Report ---
History of Present Illness Consult date: 11/24/18 Requesting physician: Osei Lee Consult reason: pre-op evaluation Chief complaint: Abdominal pain Additional Medical History:: 1. ST elevation [place], 04/2018 with resultant coronary stenting to mid LAD. Mild to moderate disease of LAD and RCA remained. 2. Ischemic cardiomyopathy A. Echo, 08/2018, moderate left atrial enlargement, mild left ventricular enlargement, severe left ventricular systolic dysfunction with LVEF of 25% and marked hypokinesis in the mid to distal septum, anterior, anteroapical and apical bowling. Moderate pulmonary hypertension with RVSP of 52 mmHg. B. Dual-chamber ICD placement 08/2018, [employer] 3. Cholelithiasis, 10/2018 4. HTN 5. Hyperlipidemia 6. History of Anxiety History of present illness: 68-year-old white female with significant cardiac history of [place] at the end of April 2018 with stent placement, along with systolic congestive heart failure, ejection fraction 35% with pacemaker placement at that time. 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 This improves with sitting up straight, and previous cardiac work-up has been negative for recurrent evidence of disease, but she had another episode on the morning of admission and came to the hospital. CT scan of the abdomen and chest revealed significant evidence of gallbladder disease with some wall thickening and stones, and she did note that the episodes seem to be food related. She was admitted overnight for pain control and observation. The above per Dr. Lee [facility] History Medical History: Reports:: Anxiety, Congestive Heart Failure, Coronary Artery Disease, Hyperlipidemia, Hypertension, Internal Pacemaker, Myocardial Infarction Denies:: Cancer, Diabetes Mellitus Type 1, Diabetes Mellitus Type 2, MRSA, Seizures *Have you ever received a pneumonia vaccine?: No *Have you received a flu vaccine this season?: No Other Medical History: Denies: Blood Transfusion Reaction Other Surgeries: Yes: Cardiac Catheterization, Coronary Stent, Pacemaker, Other (Polyp removed from uterus ) Amputation: No Fractures: No - *Social History Smoking Status: Former smoker Alcohol Intake: never Substance Use Type: denies use *Occupational Status:: retired *Travel in the last 8 weeks: None - Psychiatric History Expresses thoughts of harming self/others: None Suicide Plan Description: No Plan Pschychiatric History:: Reports:: Anxiety Family Hx:: Cancer, Heart Attack Meds Home Medications Medication Instructions Recorded Confirmed Type nitroglycerin 0.4 mg sublingual 0.4 mg SUBLINGUAL Q5MINP PRN #25 05/13/18 11/23/18 Rx tablet tab.subl Aspirin [Aspirin 81mg EC Tab] 81 mg PO DAILY 08/20/18 11/23/18 History Ticagrelor [Brilinta 90mg Tablet] 90 mg PO BID 08/20/18 11/23/18 History raNITIdine HCl [Ranitidine HCl] 150 mg PO DAILY 08/20/18 11/23/18 History losartan 25 mg tablet 25 mg PO BID #60 tab 09/24/18 11/23/18 Rx atorvastatin 40 mg tablet 40 mg PO HS #30 tab 10/29/18 11/23/18 Rx Carvedilol [Carvedilol 6.25mg Tab] 6.25 mg PO BID 11/23/18 11/23/18 History Pantoprazole Sodium [Protonix 40mg 40 mg PO DAILY 11/23/18 11/23/18 History tablet] LORazepam [Lorazepam 0.5mg Tablet] 0.5 mg PO Q8HP PRN 11/24/18 11/24/18 History Allergies Allergy/AdvReac Type Severity Reaction Status Date / Time Sulfa (Sulfonamide Allergy Mild Verified 10/24/18 03:39 Antibiotics) [SULFA (SULFONAMIDE ANTIBIOTICS)] Review of Systems - *Cardiovascular Reports chest pain, Reports shortness of breath - *Respiratory Reports shortness of breath - *Gastrointestinal Reports abdominal pain, Denies nausea, Denies vomiting - *Genitourinary Reports side pain, Denies painful urination, Denies blood in urine - *Musculoskeletal Reports back pain, Denies joint pain - *Neurologic Denies dizziness, Denies fainting, Denies dizziness, Denies weakness Exam Vital signs and Labs for Last 24 Hours: Temp Pulse Resp BP Pulse Ox 98.9 F 88 18 127/78 95 11/24/18 08:00 11/24/18 08:00 11/24/18 08:00 11/24/18 08:00 11/24/18 08:00 Laboratory Results - last 24 hr 11/23/18 12:30: WBC 12.2 H, RBC 5.07, Hgb 13.4, Hct 42.0, MCV 83.0, MCH 26.5 L, MCHC 32.0, RDW 13.5, Plt Count 259, MPV 7.1 L, Neut % (Auto) 87.9 H, Lymph % (Auto) 7.1 L, [place] % (Auto) 4.1, Eos % (Auto) 0.7, Baso % (Auto) 0.2, Neut # (Auto) 10.7 H, Lymph # (Auto) 0.9, [place] # (Auto) 0.5, Eos # (Auto) 0.1, Baso # (Auto) 0.0, Total Counted 100, Neutrophils % (Manual) 89 H, Band Neutrophils % 3.0, Lymphocytes % (Manual) 3 L, Atypical Lymphs % 2.0, Monocytes % (Manual) 3, Platelet Estimate Normal, RBC Morphology Normal 11/23/18 12:30: Sodium 137, Potassium 4.2, Chloride 102, Carbon Dioxide 25, Anion Gap 14.2, BUN 18, Creatinine 0.90, Estimated Creat Clear 88, Estimated GFR 62, Est GFR ( Amer) 75, Glucose 140 H, Calcium 8.6, Total Bilirubin 1.0, AST 13 L, ALT 22, Alkaline Phosphatase 113, Troponin I < 0.02, Total Protein 6.9, Albumin 3.6, Globulin 3.3 H, Albumin/Globulin Ratio 1.1, Amylase 31, Lipase 67 L 11/23/18 15:20: Urine Color Yellow, Urine Appearance Sl cloudy, Urine pH 5.5, Ur Specific [place] 1.010, Urine Protein Negative, Urine Glucose (UA) Negative, Urine Ketones Trace, Urine Blood Negative, Urine Nitrate Negative, Urine Bilirubin Negative, Urine Urobilinogen 1.0, Ur Leukocyte Esterase Negative, Urine WBC Occasional, Ur Squamous Epith Cells 5-10, Urine Bacteria 2+ 11/24/18 06:43: WBC 15.2 H, RBC 4.99, Hgb 13.5, Hct 41.4, MCV 82.9, MCH 27.0, MCHC 32.6, RDW 13.6, Plt Count 234, MPV 6.8 L, Neut % (Auto) 86.6 H, Lymph % (Auto) 5.6 L, [place] % (Auto) 7.5, Eos % (Auto) 0.2, Baso % (Auto) 0.2, Neut # (Auto) 13.1 H, Lymph # (Auto) 0.8, [place] # (Auto) 1.1 H, Eos # (Auto) 0.0, Baso # (Auto) 0.0, Total Counted 100, Neutrophils % (Manual) 90 H, Band Neutrophils % 2.0, Lymphocytes % (Manual) 3 L, Atypical Lymphs % 1.0, Monocytes % (Manual) 4, Platelet Estimate Normal, RBC Morphology Normal 11/24/18 06:43: Sodium 137, Potassium 3.8, Chloride 103, Carbon Dioxide 23, Anion Gap 14.8, BUN 12 D, Creatinine 0.85, Estimated Creat Clear 86, Estimated GFR 67, Est GFR ( Amer) 80, Glucose 118 H, Calcium 8.0 L I & O for Last 24 hours: Intake & Output 11/21/18 11/22/18 11/23/18 11/24/18 11:59 11:59 11:59 11:59 Intake Total 2034 Balance 2034 Weight 222 lb 9 oz Microbiology Reports for the Last 24 Hours: Microbiology 11/23/18 15:20 Urine,Clean Catch Urine Culture - Final Multiple organisms, suggests contamination. - *Routine HEENT Exam Head: Present: normocephalic Eye: Present: EOMI, PERRL ENT: Present: mucous membranes moist - *Routine Neck Exam Present: supple. Absent: JVD, carotid bruit - *Routine Respiratory Exam Present: CTA bilaterally. Absent: accessory muscle use, rales, rhonchi, wheezes - *Routine Cardiovascular Exam Present: RRR. Absent: murmur, gallop, rubs - *Routine Abdominal Exam Present: soft. Absent: tenderness, distended, guarding - *Routine Extremities Exam Absent: edema, calf tenderness - *Routine Neurological Exam Present: alert, oriented X3, moving all extremities Assessment and Plan (1) Biliary colic Current visit: Yes Status: Acute Category: Medical Code(s): K80.50 - Calculus of bile duct without cholangitis or cholecystitis without obstruction (2) Cholelithiasis Current visit: Yes Status: Acute Category: Medical Code(s): K80.20 - Calculus of gallbladder without cholecystitis without obstruction (3) Systolic congestive heart failure Current visit: Yes Status: Chronic Category: Medical Code(s): I50.20 - Unspecified systolic (congestive) heart failure (4) LV dysfunction Current visit: No Status: Chronic Category: Medical Code(s): I51.9 - Heart disease, unspecified (5) AICD (automatic cardioverter/defibrillator) present Current visit: No Status: Chronic Category: Surgical Code(s): Z95.810 - Presence of automatic (implantable) cardiac defibrillator (6) CAD (coronary artery disease) Current visit: No Status: Chronic Qualifiers: Coronary Disease-Associated Artery/Lesion type: [place] artery [place] vs. transplanted heart: [place] heart Associated angina: without angina Qualified Code(s): I25.10 - Atherosclerotic heart disease of [place] coronary artery without angina pectoris Category: Medical Code(s): I25.10 - Atherosclerotic heart disease of [place] coronary artery without angina pectoris (7) Cardiomyopathy Current visit: No Status: Chronic Qualifiers: Cardiomyopathy type: ischemic Qualified Code(s): I25.5 - Ischemic cardiomyopathy Category: Medical Code(s): I42.9 - Cardiomyopathy, unspecified (8) Obesity Current visit: No Status: Chronic Qualifiers: Obesity type: due to excess calories Obesity classification: adult class 2 (BMI 35 - 39.9) Serious obesity comorbidity presence: unspecified whether serious comorbidity present Body mass index: BMI 38.0-38.9 Qualified Code(s): E66.09 - Other obesity due to excess calories; Z68.38 - Body mass index (BMI) 38.0-38.9, adult Category: Medical Code(s): E66.9 - Obesity, unspecified (9) Presence of stent in LAD coronary artery Current visit: No Status: Chronic Category: Medical Code(s): Z95.5 - Presence of coronary angioplasty implant and graft - Assessment and plan all Dx Assessment and Plan for all problems:: 1. Patient has failed nonsurgical treatment of her cholelithiasis. Patient is greater than 6 months out from her anterior ST elevation [place] and coronary stenting with no angina symptoms at this time. She is at a slightly increased but acceptable risk to proceed with cholecystectomy. She may hold her aspirin and Brilinta for up to 5 days in anticipation of surgery later this week. Continue carvedilol and losartan perioperatively. 2. Thank you for the consult. We will follow with you as an inpatient as cali vaughn
== END 2018-11-24 13:52 | disposition home or self-care (01) ==
LOC: ER 12:18 → 2ND 12:18
PROVIDERS: ADMIT Internal Medicine Adolescent Medicine; ATTEND Internal Medicine Adolescent Medicine
DX: Z79.82 Long term (current) use of aspirin; Z95.810 Presence of automatic (implantable) cardiac defibrillator; I25.10 Atherosclerotic heart disease of native coronary artery without angina pectoris; I25.5 Ischemic cardiomyopathy; Z88.2 Allergy status to sulfonamides; Z95.5 Presence of coronary angioplasty implant and graft; Z79.02 Long term (current) use of antithrombotics/antiplatelets; E78.5 Hyperlipidemia, unspecified; E66.9 Obesity, unspecified; I25.2 Old myocardial infarction; Z79.899 Other long term (current) drug therapy; I50.20 Unspecified systolic (congestive) heart failure; K80.70 Calculus of gallbladder and bile duct without cholecystitis without obstruction; I11.0 Hypertensive heart disease with heart failure; Z68.33 Body mass index [BMI] 33.0-33.9, adult
CPT/HCPCS: 36415; 71020; 71046; 74177; 76705; 80048; 80053; 81001; 82150; 83690; 84484; 85007; 85025; 87086; 93005; 96374; 96375; 96376; 99284; G0378; J2405; Q9967

== ENCOUNTER 2018-11-28 07:17 | Observation (INO) ==
[2018-11-28 08:08] LABS: Basophils # 0.1 K/mm3 (0-0.2); Basophils % 0.6 % (0.1-2.0); Eosinophils # 0.2 K/mm3 (0.0-0.4); Eosinophils % 2.8 % (0.1-12.0); Hematocrit 39.2 % (37.0-47.0); Hemoglobin 12.7 g/dL (12.2-16.2); Mean Corpuscular HGB Conc 32.4 g/dL (31.8-35.4); Mean Corpuscular Volume 85.3 fl (81-99); Mean Platelet Volume 7.2 fl (7.4-10.4); Monocytes # 0.6 K/mm3 (0.1-1.0); Neutrophils # 6.3 K/mm3 (1.8-7.8); Neutrophils % 77.7 % (37.0-80.0); Platelet Count 321 K/mm3 (142-424); Red Cell Distribution Width 13.6 % (11.5-17.5); White Blood Count 8.1 K/mm3 (4.8-10.8)
[2018-11-28 08:20] LABS: Albumin/Globulin Ratio 0.8 (1.1-1.8); Anion Gap 15.1 mEq/L (5-15); Bilirubin,Total 0.7 mg/dL (0.2-1.0); Calcium 8.5 mg/dL (8.5-10.1); Globulin 3.6 gm/dl (1.3-3.2); Total Protein,Serum 6.6 gm/dL (6.4-8.2)
--- NOTE | 2018-11-28 08:27 | Progress Note ---
[facility] Anesthesia Checklist - Structural Data Admitted From: Home Planned Operative Procedure/s: sixto page Consent for Planned Operative Procedure(s) Verified: Yes - Airway Assessment C-Spine Mobility Assessed: Yes TMJ Mobility Assessed: Yes Dentition: Good Dentition - Neurological Assessment Level of Consciousness: Awake, Alert, Appropriate - Anesthesia Plan Anesthesia Risk discussed: Yes Anesthesia Plan: Verified ASA Class: III Anesthesia Type: General [facility] History I have reviewed the patient's past medical history: Yes Medical History: Reports:: Anxiety, Congestive Heart Failure, Coronary Artery Disease, Hyperlipidemia, Hypertension, Internal Pacemaker, Myocardial Infarction Denies:: Cancer, Diabetes Mellitus Type 1, Diabetes Mellitus Type 2, MRSA, Seizures *Have you ever received a pneumonia vaccine?: No *Have you received a flu vaccine this season?: No Other Medical History: Denies: Blood Transfusion Reaction Other Surgeries: Yes: Cardiac Catheterization, Cardiac Surgery, Coronary Stent, Pacemaker, Other (Polyp removed from uterus ) Amputation: No Fractures: No - *Social History Educational Level: Attended High School Smoking Status: Former smoker Alcohol Intake: never Substance Use Type: denies use *Occupational Status:: retired Housing: house Household Members: none *Travel in the last 8 weeks: None - Psychiatric History Expresses thoughts of harming self/others: None Suicide Plan Description: No Plan Pschychiatric History:: Reports:: Anxiety Family Hx:: Cancer, Heart Attack
--- NOTE | 2018-11-28 11:07 | Operative Note ---
Date of procedure: 11/28/18 Pre-op Diagnosis:: Acute calculus cholecystitis Post-op Diagnosis:: Same; gallbladder hydrops Procedure performed:: Laparoscopic cholecystectomy Surgeon:: Bolivar Garcia MD BACKSHOE PERSON:: Tommy Reynoso Anesthesia: MAGALIS Estimated blood loss (mL): 50 Operative findings:: Gallbladder hydrops Severe wall thickening Severe pericholecystic fat stranding Partially intrahepatic gallbladder Chano-Santiago drains (x2) placed in gallbladder fossa Operative note:: After informed consent was obtained the patient was taken to the operating room and placed in the supine position. General anesthesia was induced and her abdomen was prepped and draped in a sterile fashion. After infiltration local anesthetic a supraumbilical incision was made. A Veress needle was placed in position. The abdomen was insufflated. A 5 mm optical trocar was placed in position. Under direct visualization an 11 mm trocar was placed in the subxiphoid position and 2 additional 5 mm trocars were placed in the right upper quadrant. The gallbladder was extremely thickened. Severe pericholecystic fat stranding was noted. Careful blunt dissection was utilized to free the gallbladder from surrounding tissue. A small otomy was made in the dome of the gallbladder and cloudy fluid was evacuated. Dissection was very difficult as severe gallbladder wall thickening and partial intrahepatic placement was encountered. Multiple stones were noted within the gallbladder as a partial transection in the dome was created with harmonic megan. Multiple stones were carefully evacuated. Due to the deep dissection towards the hepatic parenchyma the decision was made to transect just above the infundibulum in order to improve visualization. The dome and midportion of the gallbladder were then carefully from the liver margin utilizing harmonic megan. This portion of the gallbladder (approximately 80 to 90% of the gallbladder) was placed in a retrieval bag and removed through the subxiphoid trocar site. A combination of harmonic megan and metallic clips were then utilized to achieve hemostasis around the infundibulum as careful dissection was then used to free this tissue from the liver margin. Endoloops (x2) were then utilized to control the stump and the "extra portion" of infundibulum was then removed with harmonic megan and added to the gallbladder specimen. The entire area was irrigated. No additional sign of injury or active bleeding was noted. #10 flat Chano- Santiago drains were then placed in the gallbladder fossa and exited through the right upper abdominal trocar sites. The drains were secured at the skin with 3- 0 nylon. Fascia at the subxiphoid trocar site was reapproximated with interrupted 0 Ethibond. All wounds were irrigated and skin was closed with 4-0 Monocryl. Dressings were applied and the patient was transferred to recovery in stable condition. Condition: stable Disposition: PACU Specimens:: Gallbladder Complications:: No immediate
--- NOTE | 2018-11-28 11:13 | Progress Note ---
[facility] Anesthesia Record Part I Intake, IV Amount: 1,500 Estimated blood loss (mL): 50 Urine output (mL): 0 Blood Pressure: 150/75 SaO2: 95 Pulse Rate: 60 Respiratory Rate: 16 Temperature: 98.2 F Patient is:: Drowsy, Stable Stable to PACU at:: 11:10
--- NOTE | 2018-11-28 11:13 | Progress Note ---
[facility] Anesthesia Record Part II Discharge Time: 11:40 Destination: 2nd floor PACU nurse assessment reviewed?: Yes Patient Condition:: Good Anesthesia Complications:: None Swallowing reflex intact?: Yes Cyanosis?: No
--- NOTE | 2018-11-28 15:25 | Pharmacy Consult Notes ---
[facility] Pharmacy VTE Monitoring - Patient Demographics Admission date: 11/28/18 Report Date: 11/28/18 Time: 15:23 Allergies/Adverse Reactions: Patient Allergies Sulfa (Sulfonamide Antibiotics) [SULFA (SULFONAMIDE ANTIBIOTICS)] Allergy (Mild, Verified 11/28/18 07:32) Height: 1.73 m Weight: 236.5 kg - VTE Risk Labs: VTE Related Lab Results Hgb 12.7 g/dL (12.2-16.2) 11/28/18 07:55 Hct 39.2 % (37.0-47.0) 11/28/18 07:55 Plt Count 321 K/mm3 (142-424) 11/28/18 07:55 BUN 11 mg/dL (7-18) 11/28/18 07:55 Creatinine 0.80 mg/dL (0.55-1.02) 11/28/18 07:55 Estimated Creat Clear 88 mL/min (50-200) 11/28/18 07:55 VTE Score: 2 - Prophylaxis VTE Prophylaxis Ordered?: Yes Types of VTE Prophylaxis: IPCS Thigh High Location of Applied Device: Bilateral Lower Extremeties
[2018-11-28 17:45] LABS: Hematocrit 38.3 % (37.0-47.0); Hemoglobin 12.3 g/dL (12.2-16.2)
[2018-11-29 07:18] LABS: Basophils % 0.1 % (0.1-2.0); Eosinophils % 0.3 % (0.1-12.0); Hematocrit 36.6 % (37.0-47.0); Hemoglobin 11.9 g/dL (12.2-16.2); Lymphocytes # 1.2 K/mm3 (0.7-4.5); Lymphocytes % 11.2 % (10-50); Mean Corpuscular HGB Conc 32.4 g/dL (31.8-35.4); Mean Platelet Volume 7.7 fl (7.4-10.4); Monocytes # 0.6 K/mm3 (0.1-1.0); Monocytes % 5.6 % (1.7-9.3); Neutrophils # 8.8 K/mm3 (1.8-7.8); Neutrophils % 82.8 % (37.0-80.0); Platelet Count 284 K/mm3 (142-424); Red Blood Count 4.16 M/mm3 (4.20-5.40); Red Cell Distribution Width 13.9 % (11.5-17.5); White Blood Count 10.6 K/mm3 (4.8-10.8)
[2018-11-29 08:20] LABS: Albumin Level 2.4 gm/dL (3.4-5.0); Albumin/Globulin Ratio 0.8 (1.1-1.8); Anion Gap 11.4 mEq/L (5-15); Bilirubin,Total 0.7 mg/dL (0.2-1.0); Calcium 7.9 mg/dL (8.5-10.1); Globulin 3.2 gm/dl (1.3-3.2); Total Protein,Serum 5.6 gm/dL (6.4-8.2)
--- NOTE | 2018-11-29 09:58 | Progress Note ---
Subjective Patient reports: feels better Exam Vital signs and Labs for Last 24 Hours: Temp Pulse Resp BP Pulse Ox 98.1 F 65 18 111/44 L 92 L 11/29/18 08:00 11/29/18 08:00 11/29/18 08:00 11/29/18 08:00 11/29/18 08:00 Laboratory Results - last 24 hr 11/28/18 16:57: Hgb 12.3, Hct 38.3 11/29/18 06:07: WBC 10.6 D, RBC 4.16 L, Hgb 11.9 L, Hct 36.6 L, MCV 88.0, MCH 28.5, MCHC 32.4, RDW 13.9, Plt Count 284, MPV 7.7, Neut % (Auto) 82.8 H, Lymph % (Auto) 11.2, Brown % (Auto) 5.6, Eos % (Auto) 0.3, Baso % (Auto) 0.1, Neut # (Auto) 8.8 H, Lymph # (Auto) 1.2, Brown # (Auto) 0.6, Eos # (Auto) 0.0, Baso # (Auto) 0.0 11/29/18 07:42: Sodium 136, Potassium 3.4 L, Chloride 101, Carbon Dioxide 27, Anion Gap 11.4, BUN 9, Creatinine 0.82, Estimated Creat Clear 92, Estimated GFR 69, Est GFR ( Amer) 84, Glucose 129 H, Calcium 7.9 L, Total Bilirubin 0.7, AST 39 H D, ALT 46 D, Alkaline Phosphatase 86, Total Protein 5.6 L, Albumin 2.4 L D, Globulin 3.2, Albumin/Globulin Ratio 0.8 L I & O for Last 24 hours: Intake & Output 11/26/18 11/27/18 11/28/18 11/29/18 11:59 11:59 11:59 11:59 Intake Total 1610 / 1610 600 / 600 Output Total 80 / 80 Balance 1595 / 1595 520 / 520 Weight 521 lb 6.292 oz 239 lb 1 oz - Constitutional no acute distress - *Routine Respiratory Exam Absent: respiratory distress - *Routine Abdominal Exam Present: soft Comments: Dressings intact. Chano-Santiago drains with serosanguineous drainage. No erythema. Progress Note: A&P (1) Acute calculous cholecystitis Status: Acute Assessment and plan: Overall, doing well status post laparoscopic cholecystectomy. Discharge home with close outpatient follow-up Chano-Santiago drain teaching Current Visit: Yes
--- NOTE | 2018-11-29 10:08 | Discharge Summary ---
General - General Admission date:: 11/28/18 Discharge date: 11/29/18 HPI HPI: This is a 68-year-old female who was recently hospitalized with the diagnosis of acute calculus cholecystitis. She received cardiology clearance to hold her Brilinta and was discharged with close outpatient follow-up/surgical consultation as she "was feeling better". After being seen in the outpatient setting she was scheduled for cholecystectomy. She did undergo laparoscopic cholecystectomy on 11/28/2018 (please see operative report for detail). She was placed in observation status postoperatively. Hospital Course Hospital Course: The patient convalesced well. She remained afebrile with stable normal vital signs. Follow-up laboratory evaluation on postoperative day 1 revealed no significant abnormality and she was deemed appropriate for discharge home. Condition at discharge: At the time of discharge patient was afebrile with stable normal vital signs. She was ambulating and tolerating advancement of her diet. Objective Vital signs: Temp Pulse Resp BP Pulse Ox 98.1 F 65 18 111/44 L 92 L 11/29/18 08:00 11/29/18 08:00 11/29/18 08:00 11/29/18 08:00 11/29/18 08:00 no acute distress - *Routine HEENT Exam Head: Present: normocephalic, atraumatic ENT: Present: oropharynx clear - *Routine Neck Exam Present: full ROM - Routine Chest/Breast/Axilla Exam Chest wall: Absent: tenderness - *Routine Respiratory Exam Absent: respiratory distress - *Routine Cardiovascular Exam Present: RRR - *Routine Abdominal Exam Present: soft - *Routine Extremities Exam Present: full ROM - Routine Back/Spine/Pelvis Exam Back/Spine: Present: full ROM - *Routine Skin Exam Absent: erythema - *Routine Neurological Exam Present: alert, oriented X3 - Routine Psychiatric Exam Present: normal affect Results Labs on day of discharge: Labs from last 24 hours 11/29/18 11/29/18 11/28/18 07:42 06:07 16:57 WBC 10.6 D RBC 4.16 L Hgb 11.9 L 12.3 Hct 36.6 L 38.3 MCV 88.0 MCH 28.5 MCHC 32.4 RDW 13.9 Plt Count 284 MPV 7.7 Neut % (Auto) 82.8 H Lymph % (Auto) 11.2 Geary % (Auto) 5.6 Eos % (Auto) 0.3 Baso % (Auto) 0.1 Neut # (Auto) 8.8 H Lymph # (Auto) 1.2 Geary # (Auto) 0.6 Eos # (Auto) 0.0 Baso # (Auto) 0.0 Sodium 136 Potassium 3.4 L Chloride 101 Carbon Dioxide 27 Anion Gap 11.4 BUN 9 Creatinine 0.82 Estimated Creat Clear 92 Estimated GFR 69 Est GFR ( Amer) 84 Glucose 129 H Calcium 7.9 L Total Bilirubin 0.7 AST 39 H D ALT 46 D Alkaline Phosphatase 86 Total Protein 5.6 L Albumin 2.4 L D Globulin 3.2 Albumin/Globulin Ratio 0.8 L DS: Diagnosis - Discharge Diagnosis (1) Acute calculous cholecystitis Status: Acute Discharge Plan - Patient Discharge Instructions ACTIVITY: No heavy lifting DIET: advance to your usual diet - Follow up Plan Follow up with: Bolivar Garcia MD [Staff Physician] - 12/09/18 9:00 am Disposition: Home, Self-Alf Medications: Home Medications Medication Instructions Recorded Confirmed Type nitroglycerin 0.4 mg sublingual 0.4 mg SUBLINGUAL Q5MINP PRN #25 05/13/18 11/28/18 Rx tablet tab.subl Aspirin [Aspirin 81mg EC Tab] 81 mg PO DAILY 08/20/18 11/28/18 History raNITIdine HCl [Ranitidine HCl] 150 mg PO DAILY 08/20/18 11/28/18 History losartan 25 mg tablet 25 mg PO BID #60 tab 09/24/18 11/28/18 Rx atorvastatin 40 mg tablet 40 mg PO HS #30 tab 10/29/18 11/28/18 Rx Carvedilol [Carvedilol 6.25mg Tab] 6.25 mg PO BID 11/23/18 11/28/18 History Pantoprazole Sodium [Protonix 40mg 40 mg PO DAILY 11/23/18 11/28/18 History tablet] LORazepam [Lorazepam 0.5mg Tablet] 0.5 mg PO Q8HP PRN 11/24/18 11/28/18 History Ticagrelor [Brilinta 60mg Tab] 60 mg PO DAILY 11/27/18 11/28/18 History Amoxicillin/Potassium Clav 1 tab PO Q12H #10 tab 11/29/18 Rx [Augmentin 875-125 Tablet] Prescriptions/Medication Reconciliation: New Amoxicillin/Potassium Clav [Augmentin 875-125 Tablet] 1 tab PO Q12H #10 tab Continued nitroglycerin 0.4 mg sublingual tablet 0.4 mg SUBLINGUAL Q5MINP PRN #25 tab.subl PRN Reason: Chest Pain losartan 25 mg tablet 25 mg PO BID #60 tab atorvastatin 40 mg tablet 40 mg PO HS #30 tab raNITIdine HCl [Ranitidine HCl] 150 mg PO DAILY Aspirin [Aspirin 81mg EC Tab] 81 mg PO DAILY Carvedilol [Carvedilol 6.25mg Tab] 6.25 mg PO BID Ticagrelor [Brilinta 60mg Tab] 60 mg PO DAILY Pantoprazole Sodium [Protonix 40mg tablet] 40 mg PO DAILY LORazepam [Lorazepam 0.5mg Tablet] 0.5 mg PO Q8HP PRN PRN Reason: Anxiety
== END 2018-11-29 11:41 | disposition home or self-care (01) ==
LOC: 2ND 07:17 → OR 07:17
PROVIDERS: ADMIT Surgery; ATTEND Surgery
CPT/HCPCS: 36415; 80053; 85014; 85018; 85025; 88304; 96374; G0378; J2405; J2543; J2710

== ENCOUNTER → 2019-03-25 09:39 | Outpatient (CLI) | payer MEDICARE, MEDICAID, SELFPAY ==
[2019-03-25 13:46] LABS: Alanine Aminotransferase 15 U/L (12-78); Albumin Level 3.7 gm/dL (3.4-5.0); Alkaline Phosphatase 122 U/L (46-116); Aspartate Amino Transferase 14 U/L (15-37); Bilirubin,Direct 0.2 mg/dL (0.0-0.2); Bilirubin,Indirect 0.6 mg/dL (0.0-0.9); Bilirubin,Total 0.8 mg/dL (0.2-1.0); Chol/HDL Ratio 2.9 (1-3.5); Cholesterol 139 mg/dL (140-200); HDL Cholesterol 48 mg/dL (29-89); LDL Cholesterol 73 mg/dL (0-130); Total Protein,Serum 6.6 gm/dL (6.4-8.2); Triglycerides 89 mg/dL (30-200); VLDL Cholesterol 18 mg/dL (0-40)
== END ==
PROVIDERS: PCP Internal Medicine Adolescent Medicine; Visit Provider Internal Medicine
DX: I21.3 ST elevation (STEMI) myocardial infarction of unspecified site (principal); I25.10 Atherosclerotic heart disease of native coronary artery without angina pectoris; I42.9 Cardiomyopathy, unspecified; R94.31 Abnormal electrocardiogram [ECG] [EKG]; Z95.810 Presence of automatic (implantable) cardiac defibrillator
CPT/HCPCS: 36415; 80061; 80076

== ENCOUNTER → 2020-05-13 12:48 | Outpatient (CLI) | payer MEDICARE, MEDICAID, SELFPAY ==
[2020-05-13 13:28] LABS: Chloride 102 mmol/L (98-107); Sodium 138 mmol/L (136-145)
[2020-05-13 13:29] LABS: Potassium 3.7 mmoL/L (3.5-5.1)
[2020-05-13 13:31] LABS: Blood Urea Nitrogen 14 mg/dl (7-17); Estimated Glomerular Filt Rate 71 ml/min (>60); GFR (African American) 86 ML/MIN (>60)
[2020-05-13 13:32] LABS: Calcium 8.9 mg/dl (8.4-10.2); Carbon Dioxide 30 mmol/L (22.0-30.0); Glucose 144 mg/dl (74-100)
[2020-05-13 13:38] LABS: Basophils % 0.4 % (0.1-2.0); Eosinophils # 0.1 K/mm3 (0.0-0.4); Eosinophils % 1.2 % (0.1-12.0); Hematocrit 42.9 % (37.0-47.0); Hemoglobin 14.2 g/dL (12.2-16.2); Lymphocytes # 1.1 K/mm3 (0.7-4.5); Lymphocytes % 10.7 % (10-50); Mean Corpuscular HGB Conc 33.2 g/dL (31.8-35.4); Mean Corpuscular Hemoglobin 29.1 pg (27.0-31.2); Mean Corpuscular Volume 87.8 fl (81-99); Monocytes # 0.7 K/mm3 (0.1-1.0); Monocytes % 6.2 % (1.7-9.3); Neutrophils # 8.7 K/mm3 (1.8-7.8); Neutrophils % 81.5 % (37.0-80.0); Platelet Count 288 K/mm3 (142-424); Red Blood Count 4.89 M/mm3 (4.20-5.40); Red Cell Distribution Width 14.5 % (11.5-17.5); White Blood Count 10.6 K/mm3 (4.8-10.8)
[2020-05-13 17:44] LABS: Coronavirus 19 IgG Antibody Negative (Negative); Coronavirus 19 IgM Antibody Negative (Negative)
== END ==
PROVIDERS: Visit Provider Internal Medicine
DX: Z01.810 Encounter for preprocedural cardiovascular examination (principal); Z03.818 Encounter for observation for suspected exposure to other biological agents ruled out; R06.02 Shortness of breath; I25.10 Atherosclerotic heart disease of native coronary artery without angina pectoris
CPT/HCPCS: 36415; 80048; 85025; 86328

== ENCOUNTER 2020-05-16 08:26 | Day surgery (SDC) | payer MEDICARE, MEDICAID, SELFPAY ==
[2020-05-16] VITALS (13 sets, daily range): BP systolic 102–186; BP diastolic 58–91; PULSE 60–95; RESP 13–16; TEMP 36.8; O2SAT 91–100; BMI 37.3
--- NOTE | 2020-05-16 07:07 | IR_ITS ---
APPROVED REPORT Patient Location: Outpatient [facility] Polisher: JAVIER Valle RT (R) PROCEDURES Left heart catheterization Left ventriculogram Selective coronary angiogram INDICATION Known coronary artery disease, History of coronary artery stenting, History of systolic congestive heart failure Informed consent was obtained prior to the procedure. COMPLICATIONS none Estimated Blood Loss: less than 10 mls TECHNIQUE One percent lidocaine used to anesthetize the right anterior aspect of the wrist. The right radial artery was accessed via the Seldinger technique. A 6 Georgian sheath was placed in the right radial artery. 2.5 mg of verapamil, 800 mcg of nitroglycerin, 1mg Lidocaine and 5000 U Heparin were given through the arterial sheath. The trap catheter and 6 Georgian JL 3 guide catheter were used to perform left heart catheterization, left ventriculogram and selective coronary angiogram. At the end of the procedure the sheath was removed good hemostasis was achieved using Traclet band, patient was transferred to the postop holding area in stable condition. ANGIOGRAPHIC RESULTS The left main artery Normal The left anterior descending artery As proximal 10% luminal irregularities followed by a mid vessel stent which is widely patent free of in-stent restenosis with excellent proximal distal transitioning The circumflex artery Is nondominant yet still a large network with 10 to 20% diffuse luminal irregularities The right coronary artery Is a dominant vessel with proximal 20% mid vessel 30 to 40% concentric stenosis with distal 10 to 20% luminal irregularity The BUSCH ventriculogram reveals Dilated ventricle with reduced ejection fraction less than 40% The left ventricular end-diastolic pressure 10 mmHg IMPRESSION Coronary disease as described above Dilated ventricle with reduced ejection fraction Normal left ventricular end-diastolic pressure PLAN 1. Medical management Electronically signed by : Mick Diallo, 05/16/2020 10:54:40
--- NOTE | 2020-05-16 08:31 | CA_ITS ---
APPROVED REPORT EXAM: Comprehensive 2D, Doppler, and color-flow Echocardiogram Moving Worker: Sagrario Dupree RDCS Ht: 5 ft 6 in Wt: 231lbs BSA: 2.13 BP: 125/43 mmHg Indications: SOA,CAD,AICD,CM,LBBB,HTN,HLP 2D Dimensions LVOT 1.78 cm (M/F) 1.5-2.5 M-Mode Dimensions RVDd 2.05 cm (0.9-2.6) LA Diam 4.16 cm (1.9-4.0) LVDd 5.98 cm (3.5-5.7) Ao Diam 3.59 cm (2.0-3.7) LVDs 3.85 cm (3.5-5.7) IVSd 0.80 cm (0.6-1.1) PWd 0.92 cm (0.6-1.1) EF (Teich) 64.20% FS 35.60% EDV (Teich) 178.60 mL ESV (Teich) 63.90 mL LV Diastology E Decel Time 190.00 (160-240 msec) E/A Ratio 0.8 MED E' 6.30 (< 7 cm/sec) E'/MED E' Ratio 11.03 (>14) LAT E' 7.00 (<10 cm/sec) E/LAT E' Ratio 9.93 (>14) Mitral Valve MV E Max Dheeraj. 69.00 (40-130 cm/s) MV A Velocity 83.00 (40-130 cm/s) E/A Ratio 0.83 MV Decel. Time 190.00 (160-240 ms) MV PHT 56.00 ms Tricuspid Valve TR P. Velocity 341.00 cm/s RAP Estimate 10.00 mmHg RVSP 56.60 mmHg Left Ventricle Technically difficult study, endocardial borders are very poorly visualized, left atrium is mildly enlarged, left ventricle is normal size, mild concentric left ventricular hypertrophy, visually estimated ejection fraction is probably approximately 40%. There is no obvious regional wall motion abnormality, a repeat study with Definity contrast is recommended. Diastolic parameters are inconclusive. Right Ventricle Right atrium and right ventricle are normal size and contractility, there is a pacemaker or an AICD lead seen in right ventricle. Aortic Valve Aortic valve is minimally thickened and fibrosed, there is no aortic stenosis or aortic insufficiency. Mitral Valve Mitral valve is grossly normal, there is mild mitral regurgitation. Tricuspid Valve Tricuspid valve grossly normal, there is mild tricuspid regurgitation, tricuspid regurgitation jet velocity is inadequate for calculation of the right ventricular systolic pressure. Pulmonic Valve Pulmonic valve is poorly visualized. Great Vessels Aortic root is normal size. Pericardium No significant pericardial effusion noted. Conclusion 1. Technically difficult study because of the patient factors and poor acoustic windows, endocardial borders are poorly visualized, repeat study with Definity contrast is recommended. 2. Mildly enlarged left atrium, normal left ventricular size, mild concentric left ventricular hypertrophy, visually estimated ejection is probably 40%. Diastolic parameters are inconclusive. 3. Mild mitral and tricuspid regurgitation. 4. No significant pericardial effusion noted. Electronically signed by : Vasyl Carrera, 05/17/2020 06:04:34
== END 2020-05-16 13:41 | disposition home or self-care (01) ==
LOC: CATHLAB 08:28
PROVIDERS: PCP Internal Medicine Adolescent Medicine; Visit Provider Internal Medicine
DX: I50.22 Chronic systolic (congestive) heart failure (principal); I11.0 Hypertensive heart disease with heart failure; I25.5 Ischemic cardiomyopathy; R94.31 Abnormal electrocardiogram [ECG] [EKG]; Z95.810 Presence of automatic (implantable) cardiac defibrillator; E78.2 Mixed hyperlipidemia; I25.118 Atherosclerotic heart disease of native coronary artery with other forms of angina pectoris; I44.7 Left bundle-branch block, unspecified; Z88.2 Allergy status to sulfonamides; Z95.5 Presence of coronary angioplasty implant and graft; Z79.82 Long term (current) use of aspirin; Z79.01 Long term (current) use of anticoagulants; Z79.899 Other long term (current) drug therapy
CPT/HCPCS: 93306; 93458; 99152; C1725; C1769; J1644; Q9967

== ENCOUNTER 2020-06-04 12:14 | Emergency (ER) | payer MEDICARE, MEDICAID, SELFPAY ==
[2020-06-04 12:22] VITALS: BP 131/62; PULSE 77; RESP 20; TEMP 36.7; O2SAT 99; BMI 34.8
[2020-06-04 12:23] VITALS: BMI 34.9
--- NOTE | 2020-06-04 12:24 | XR_ITS ---
PROCEDURE: XR ANKLE LT MIN 3V Referring Doctor: Luis M Castro Patient Age:69Y CLINICAL INDICATION: fall Left ankle pain COMPARISON: No exams were available for comparison TECHNIQUE: 3 View AP, Oblique, Lateral FINDINGS: Left ankle three views reveal no acute fracture or dislocation. No lytic or blastic change. There is normal mineralization. The joint spaces are well-preserved. No significant degenerative/arthritic changes. No erosive changes evident. . No prominent soft tissue swelling. Faint small vessel calcification noted could reflect history of diabetes. There is prominent coarse spurring and hypertrophic bone at insertion of the Achilles tendon but this large hypertrophic bone extends for up to 2 cm in length and may reflect some chronic Achilles tendinopathy but correlation required. Also small plantar calcaneal spur of 6 7 mm length IMPRESSION: Left ankle intact with no fracture nor dislocation. No prominent soft tissue swelling about ankle radiographically. Note prominent hypertrophic spurring, and dystrophic calcification at insertion of Achilles tendon. Is there history of Achilles tendinopathy? Dictated by: Miguel White MD 06/04/2020 14:32 Miguel White MD in [place] 06/04/2020 14:32
--- NOTE | 2020-06-04 12:24 | XR_ITS ---
PROCEDURE: XR KNEE LT 3V Referring Doctor: Luis M Castro Patient Age:69Y CLINICAL INDICATION: fall COMPARISON: CR KNEE3L KNEE-3 VIEWS-LT from 11/12/2016 TECHNIQUE: 3 View AP, Oblique, Lateral FINDINGS: Three views left knee nonweightbearing are compared to November 2016 left knee. No acute findings today. No fracture or dislocation. No lytic or blastic change. There is normal mineralization.. There are moderate degenerative changes with narrowing of the medial compartment and developing tricompartmental marginal osteophytes evident. There may be slight progressive narrowing the medial compartment since 2016 on this nonweightbearing study. No significant joint effusion. IMPRESSION: No acute findings. No fracture.. No effusion Degenerative changes at left knee most evident at medial compartment. The Dictated by: Miguel White MD 06/04/2020 14:41 Miguel White MD in [place] 06/04/2020 14:41
[2020-06-04 13:15] VITALS: BP 130/76; PULSE 76; RESP 20; O2SAT 98
--- NOTE | 2020-06-04 13:42 | HMH.EDGENADL ---
ED Disposition Clinical Impression: Left ankle sprain Qualifiers: Encounter type: initial encounter Involved ligament of ankle: anterior talofibular ligament Qualified Code(s): S93.492A - Sprain of other ligament of left ankle, initial encounter Left knee sprain Qualifiers: Encounter type: initial encounter Involved ligament of knee: unspecified ligament Qualified Code(s): S83.92XA - Sprain of unspecified site of left knee, initial encounter Disposition: Home, Self-Care Condition on Discharge: Good Instructions: How to Prevent Falls, How to Use a Knee Immobilizer, DI for Ankle Sprain, DI for Knee Sprain Additional Instructions: Knee immobilizer as needed. Aircast for your ankle for 1 week. Tylenol for pain. Stay off of your left lower extremity is much as possible for the next 2 days, ice 20 minutes 4-5 times a day, elevate your leg. Follow-up with your primary care doctor or orthopedics if not improved in 2 to 3 days. Referrals: Sanjeev Vicente MD [Primary Care Provider] - - Critical Care Critical Care Time: No Attestation: On 06/04/20, the high probability of a clinically significant, sudden or life threatening deterioration of the following system(s) required my full and direct attention, intervention and personal management. The time I documented below is in addition to time spent performing reported procedures but includes the following listed in this critical care notation. Medical Decision Making - Torsten Inquiry Pt receiving controlled substance: No Vital Signs: 06/04/20 12:22 Temperature 98.0 F Temperature Source Oral Pulse Rate [Left Radial] 77 Respiratory Rate 20 Blood Pressure [Left Arm] 131/62 Blood Pressure Mean [Left Arm] 85 Blood Pressure Source [Left Arm] Automatic Cuff Blood Pressure Position [Left Arm] Supine 02 Sat by Pulse Oximetry 99 Oxygen Delivery Method Room Air Orders (Tests/Meds): ORDERS Category Date Time Status Knee XR left 3 views [XR knee LT 3V] Stat Exams 06/04/20 12:24 Taken XR ankle LT min 3V Stat Exams 06/04/20 12:24 Taken - Radiology Data #1 Image(s): Knee, Ankle Image Reviewed: Yes I reviewed the patient's radiology image Knee: Degenerative changes, no fracture or dislocation or effusion seen Ankle: Degenerative changes, no fracture or dislocation seen Medical Decision Narrative: Patient declines crutches. She will be given a knee immobilizer and an Aircast. She will stay off of it is much as possible for the next couple days and follow-up with her primary care doctor if not improved on Saturday. Ice, elevation, [id number] analgesics as needed. General Adult HPI - General Chief complaint: Fall Stated complaint: Ao fall, leg pain Time Seen by Provider: 06/04/20 13:42 Mode of Arrival: Wheelchair Limitations: No Limitations Description of Symptoms (Recalled from ER Triage Doc. by RN): PT STATES SHE FELL WHILE OUT EATING LUNCH. PT STATES SHE MISSED THE STEP AND HER KNEE TWISTED. NO LOC REPORTED. - History of Present Illness HPI narrative: States that she fell and hyper flexed her knee and ankle on her left lower extremity which went up underneath her when she fell. Injury occurred at 11:30 AM. She says she thinks her ankle is worse than her knee. It hurts to try and bear weight. Her ankle pain is lateral. Her knee pain is diffuse. No other injuries. - Related Data Home Medications Medication Instructions Recorded Confirmed LORazepam [Lorazepam 0.5mg Tablet] 0.5 mg PO Q8HP PRN 11/24/18 05/16/20 Famotidine [Acid Principal Gifts Officer] 20 mg PO DAILY 05/16/20 05/16/20 Losartan Potassium [Cozaar 100mg 50 mg PO BID 05/16/20 05/16/20 Tablets] Ticagrelor [Brilinta 90mg 90 mg PO BID 05/16/20 05/16/20 Tablet] polyethylene glycoL 3350 [Miralax 17 gm PO DAILY 05/16/20 05/16/20 17gm Packet] Previous Rx's Medication Instructions Recorded nitroglycerin 0.4 mg sublingual 0.4 mg SUBLINGUAL Q5MINP PRN #25 05/13/18 tab
[2020-06-04 14:24] VITALS: BP 128/68; PULSE 80; RESP 16; TEMP 36.8; O2SAT 98
== END 2020-06-04 14:25 | disposition home or self-care (01) ==
PROVIDERS: Emergency Provider Emergency Medicine; PCP Internal Medicine Adolescent Medicine
DX: S93.492A Sprain of other ligament of left ankle, initial encounter (principal); S83.92XA Sprain of unspecified site of left knee, initial encounter; W10.8XXA Fall (on) (from) other stairs and steps, initial encounter; Y92.89 Other specified places as the place of occurrence of the external cause; I10 Essential (primary) hypertension; E78.5 Hyperlipidemia, unspecified; F41.9 Anxiety disorder, unspecified; I25.10 Atherosclerotic heart disease of native coronary artery without angina pectoris; I25.2 Old myocardial infarction
CPT/HCPCS: 29505; 73562; 73610; 99282

== ENCOUNTER → 2020-08-26 09:25 | Outpatient (CLI) | payer MEDICARE, MEDICAID, SELFPAY ==
[2020-08-26 15:26] LABS: Alanine Aminotransferase 12 U/L (12-78); Albumin Level 3.7 g/dl (3.5-5.0); Alkaline Phosphatase 112 U/L (38-126); Aspartate Amino Transferase 21 U/L (14-36); Bilirubin,Indirect 0.6 mg/dL (0.0-0.9); Bilirubin,Total 0.6 mg/dl (0.2-1.3); Bilirubin,Unconjugated 0.6 mg/dL (0.0-1.1); Chol/HDL Ratio 3.6 (1-3.5); Cholesterol 149 mg/dl (140-200); HDL Cholesterol 41 mg/dl (40-60); Total Protein,Serum 6.1 g/dl (6.3-8.2); Triglycerides 119 mg/dl (30-150); VLDL Cholesterol 24 mg/dL (0-40)
[2020-08-26 15:37] LABS: Direct LDL Cholesterol 76.48 mg/dL (100-129)
== END ==
PROVIDERS: Visit Provider Nurse Practitioner Family
DX: E78.2 Mixed hyperlipidemia (principal); I11.0 Hypertensive heart disease with heart failure; I25.118 Atherosclerotic heart disease of native coronary artery with other forms of angina pectoris; I25.5 Ischemic cardiomyopathy; R06.00 Dyspnea, unspecified; I50.22 Chronic systolic (congestive) heart failure
CPT/HCPCS: 36415; 80061; 80076

== ENCOUNTER 2020-11-18 15:16 | Emergency (ER) | payer MEDICARE, MEDICAID, SELFPAY ==
[2020-11-18 15:35] VITALS: BP 136/92; PULSE 75; RESP 18; TEMP 36.8; O2SAT 97; BMI 36.2
--- NOTE | 2020-11-18 15:55 | HMH.EDUTC ---
[facility] [place] [facility] [place] Clinical Impression: Dental abscess, Pain, dental, Jaw pain Disposition: Home, Self-Care Condition on Discharge: Good Instructions: DI for Tooth Abscess Additional Instructions: Drink plenty of fluids. Take tylenol for pain. Take the medications as directed. Follow up with the dentist and oral surgeon. GO TO THE ER FOR ANY WORSENING SYMPTOMS Prescriptions: Amoxicillin [Amoxicillin 500mg Tab] 500 mg PO TID 10 Days #30 tab Transmission Status: Received by [facility] Referrals: Sanjeev Vicente MD [Primary Care Provider] - Time of Disposition: 16:03 Medical Decision Making - Medical Records Medical records reviewed: No: I reviewed the patient's medical records. - Torsten Inquiry Pt receiving controlled substance: No Vital Signs: 11/18/20 15:35 11/18/20 16:27 Temperature 98.2 F 98.2 F Temperature Source Oral Pulse Rate 75 Pulse Rate [Right Brachial] 75 Respiratory Rate 18 18 Blood Pressure 136/92 H Blood Pressure [Right Arm] 136/92 H Blood Pressure Mean [Right Arm] 106 Blood Pressure Source [Right Arm] Automatic Cuff Blood Pressure Position [Right Arm] Sitting 02 Sat by Pulse Oximetry 97 Oxygen Delivery Method Room Air Orders (Tests/Meds): ED MEDICATIONS Discontinued Medications Generic Name Dose Route Start Last Admin Trade Name Freq PRN Reason Stop Dose Admin Benzocaine/Butamben/Tetracaine HCl 1 gm 11/18/20 15:46 11/18/20 16:17 Tetracaine/Benzocaine/Butamben 56 Gm [place] TP 11/18/20 15:47 1 gm ONCE ONE Administration Ceftriaxone Sodium 1 gm 11/18/20 15:55 11/18/20 16:17 Ceftriaxone 1gm Vial IM 11/18/20 15:56 1 gm ONCE ONE Administration Protocol Lidocaine HCl 15 ml 11/18/20 15:46 11/18/20 16:17 Lidocaine 2% Viscous Phyllis 15ml Udc PO 11/18/20 15:47 15 ml ONCE ONE Administration Lidocaine HCl 0 ml 11/18/20 15:55 11/18/20 16:17 Lidocaine 1% 5ml Pf Vial IM 11/18/20 15:56 2.1 ml ONCE ONE Administration [facility] [place] [facility] [place]PI - General Stated complaint: dental pain Time Seen by Provider: 11/18/20 15:55 Mode of Arrival: Ambulatory Source of Information: Patient Limitations: No Limitations Description of Symptoms (Recalled from Triage Doc. by RN): PATIENT C/O TOOTHACHE TO TOP RIGHT TOOTH SINCE APPROX 2300 LAST NIGHT HEENT Symptoms (Recalled from RN notes): Yes Resp Symptoms (Recalled from RN notes): No Skin Symptoms (Recalled from RN notes): No MS Symptoms (Recalled from RN notes): No Functional Status (Recalled from RN notes): WNL - History of Present Illness Provider Complaint: She states that she has had a tooth ache since last night. It is in her right upper jaw. She has a dental appt next week. - Related Data Home Medications Medication Instructions Recorded Confirmed LORazepam [Lorazepam 0.5mg Tablet] 0.5 mg PO Q8HP PRN 11/24/18 09/28/20 Losartan Potassium [Cozaar 100mg 50 mg PO BID 05/16/20 09/28/20 Tablets] polyethylene glycoL 3350 [Miralax 17 gm PO DAILY 05/16/20 09/28/20 17gm Packet] Previous Rx's Medication Instructions Recorded nitroglycerin 0.4 mg sublingual 0.4 mg SUBLINGUAL Q5MINP PRN #25 05/13/18 tablet tab.subl aspirin 81 mg tablet,delayed 81 mg PO DAILY #90 tab 09/16/19 release pantoprazole 40 mg tablet,delayed 40 mg PO DAILY #90 tab 09/16/19 release furosemide 20 mg tablet 20 mg PO DAILY PRN #30 tab 06/20/20 famotidine 20 mg tablet 20 mg PO DAILY #30 tab 07/11/20 ticagrelor 90 mg tablet See Rx Instructions .ROUTE 09/19/20 .COMPLEX #180 tablet atorvastatin 40 mg tablet See Rx Instructions .ROUTE 10/10/20 .COMPLEX #90 tab carvedilol 6.25 mg tablet See Rx Instructions .ROUTE 10/10/20 .COMPLEX #180 tab Amoxicillin [Amoxicillin 500mg Tab] 500 mg PO TID 10 Days #30 tab 11/18/20 Allergies Allergy/AdvReac Type Severity Reaction Status Date / Time Sulfa (Sulfonamide Allergy Mild Verified 09/28/20 13:02 Antibiotics) [SULFA (SULFONAMIDE
[2020-11-18 16:27] VITALS: BP 136/92; PULSE 75; RESP 18; TEMP 36.8; O2SAT 97
== END 2020-11-18 16:28 | disposition home or self-care (01) ==
PROVIDERS: Emergency Provider Nurse Practitioner Family; PCP Internal Medicine Adolescent Medicine
DX: K04.7 Periapical abscess without sinus (principal); I50.9 Heart failure, unspecified; I25.10 Atherosclerotic heart disease of native coronary artery without angina pectoris; E78.5 Hyperlipidemia, unspecified; I10 Essential (primary) hypertension; Z95.0 Presence of cardiac pacemaker; I25.2 Old myocardial infarction; Z88.2 Allergy status to sulfonamides; Z79.899 Other long term (current) drug therapy
CPT/HCPCS: G0463; 96372; 99202

== ENCOUNTER 2021-02-08 20:37 | Emergency (ER) | payer MEDICARE, MEDICAID, SELFPAY ==
--- NOTE | 2021-02-08 20:23 | ECG_ITS ---
APPROVED REPORT Exam: Resting ECG HR:94 bpm ECG Measurements Heart Rate 94 AXES MT 198 P 44 QRSd 158 QRS -25 QT 390 T 104 QTc 487 Conclusion Normal sinus rhythm Left bundle branch block Abnormal ECG Electronically signed by : Osei Lee MD 02/10/2021 10:55:12
[2021-02-08 20:37] VITALS: BP 125/77; PULSE 99; RESP 20; TEMP 36.7; O2SAT 96; BMI 34.9
[2021-02-08 20:38] VITALS: BMI 34.9
--- NOTE | 2021-02-08 20:42 | XR_ITS ---
PROCEDURE INFORMATION: Exam: XR Chest Exam date and time: 02/08/2021 8:42 PM Age: 70 years old Clinical indication: Prior surgery; Surgery date: 6+ months; Surgery type: Pacemaker; Patient HX: Cough, congestion, sinus infection for a week TECHNIQUE: Imaging protocol: XR of the chest. Views: 1 view. COMPARISON: CR Chest 11/23/2018 1:02 PM FINDINGS: Limited inspiration and penetration of the chest with obese body habitus. Lungs: Unremarkable. No consolidation. Pleural spaces: Unremarkable. No pleural effusion. No pneumothorax. Heart/Mediastinum: Unremarkable. No cardiomegaly. There is a left dual lead transvenous pacer with ICD component, with distal leads in the right atrium and right ventricle. Similar appearance when compared with prior examination. Bones/joints: Unremarkable. IMPRESSION: No acute findings.
[2021-02-08 20:58] LABS: Coronavirus 19, PCR Not Detected (NotDetected); Influenza A, PCR Not Detected (NotDetected); Influenza B, PCR Not Detected (NotDetected); Microscopic, Urine URINE MICROSCOPIC (MICROSCOPIC)
[2021-02-08 21:02] LABS: Basophils # 0.1 K/mm3 (0-0.2); Basophils % 0.5 % (0.1-2.0); Eosinophils # 0.5 K/mm3 (0.0-0.4); Eosinophils % 2.3 % (0.1-12.0); Hemoglobin 15.4 g/dL (12.2-16.2); Lymphocytes # 1.7 K/mm3 (0.7-4.5); Lymphocytes % 8.2 % (10-50); Mean Corpuscular HGB Conc 33.5 g/dL (31.8-35.4); Mean Corpuscular Hemoglobin 29.2 pg (27.0-31.2); Mean Corpuscular Volume 87.2 fl (81-99); Mean Platelet Volume 7.6 fl (7.4-10.4); Monocytes # 1.6 K/mm3 (0.1-1.0); Monocytes % 7.9 % (1.7-9.3); Neutrophils # 16.5 K/mm3 (1.8-7.8); Neutrophils % 81.1 % (37.0-80.0); Platelet Count 361 K/mm3 (142-424); Red Blood Count 5.27 M/mm3 (4.20-5.40); Red Cell Distribution Width 14.4 % (11.5-17.5); White Blood Count 20.4 K/mm3 (4.8-10.8)
[2021-02-08 21:03] LABS: Appearance,Urine CLEAR (Clear); Bilirubin,Urine Negative (Negative); Blood, Urine Negative (Negative); Color,Urine YELLOW (Yellow); Glucose,Urine (UA) 2+ (Negative); Ketones,Urine TRACE (Negative); Leukocyte Esterase,Urine Negative (Negative); Nitrate,Urine Negative (Negative); Protein,Urine Negative (Negative); Specific Gravity, Urine 1.025 (1.005-1.030)
[2021-02-08 21:09] LABS: Chloride 94 mmol/L (98-107); Sodium 131 mmol/L (136-145)
[2021-02-08 21:10] LABS: MANUAL DIFFERENTIAL MANUAL DIFFERENTIAL (MANUAL DIFF)
[2021-02-08 21:12] LABS: Blood Urea Nitrogen 20 mg/dl (7-17); Carbon Dioxide 29 mmol/L (22.0-30.0); Creatinine Clearance Estimated 86 mL/min (50-200); Estimated Glomerular Filt Rate 71 ml/min (>60); GFR (African American) 86 ML/MIN (>60); Glucose 193 mg/dl (74-100)
[2021-02-08 21:19] LABS: Alanine Aminotransferase 27 U/L (12-78); Albumin Level 3.4 g/dl (3.5-5.0); Alkaline Phosphatase 95 U/L (38-126); Aspartate Amino Transferase 31 U/L (14-36); Bilirubin,Direct 0.1 mg/dl (0.0-0.4); Bilirubin,Indirect 0.8 mg/dL (0.0-0.9); Bilirubin,Total 0.9 mg/dl (0.2-1.3); Bilirubin,Unconjugated 0.8 mg/dL (0.0-1.1); Total Protein,Serum 6.1 g/dl (6.3-8.2)
[2021-02-08 21:21] LABS: Squamous Epithelial Cell,Urine Occasional #/hpf (0-5); WBC,Urine Occasional #/hpf (0-3)
[2021-02-08 21:25] LABS: C-Reactive Protein 62.4 mg/L (0-4)
[2021-02-08 21:27] LABS: Troponin I < 0.01 ng/ml (0.00-0.034)
[2021-02-08 21:36] LABS: Erythrocyte Sedimentation Rate 5 mm/hr (0-30)
[2021-02-08 21:39] LABS: Procalcitonin 0.075 ng/mL (0.0-2.0)
--- NOTE | 2021-02-08 21:50 | HMH.EDCP ---
ED Disposition Clinical Impression: Bronchitis Disposition: Home, Self-Care Condition on Discharge: Good Instructions: DI for Atypical Chest Pain Additional Instructions: fluids and use meds and call pcp for follow up Prescriptions: Minocycline HCl [Minocycline HCl 100mg Tab*] 100 mg PO BID #20 tab Transmission Status: Pending to [facility] Referrals: Sanjeev Vicente MD [Primary Care Provider] - - Critical Care Critical Care Time: No Attestation: On 02/08/21, the high probability of a clinically significant, sudden or life threatening deterioration of the following system(s) required my full and direct attention, intervention and personal management. The time I documented below is in addition to time spent performing reported procedures but includes the following listed in this critical care notation. Medical Decision Making - Medical Records Medical records reviewed: Yes: I reviewed the patient's medical records. - Torsten Inquiry Pt receiving controlled substance: No Vital Signs: 02/08/21 20:37 Temperature 98.1 F Temperature Source Oral Pulse Rate [Left Radial] 99 H Respiratory Rate 20 Blood Pressure [Right Arm] 125/77 Blood Pressure Mean [Right Arm] 93 Blood Pressure Source [Right Arm] Automatic Cuff Blood Pressure Position [Right Arm] Sitting 02 Sat by Pulse Oximetry 96 Oxygen Delivery Method Room Air - Lab Data Lab results reviewed: Yes: I reviewed the patient's lab results. Lab Results 02/08/21 20:40: WBC 20.4 H*, RBC 5.27, Hgb 15.4, Hct 46.0, MCV 87.2, MCH 29.2, MCHC 33.5, RDW 14.4, Plt Count 361, MPV 7.6, Neut % (Auto) 81.1 H, Lymph % (Auto) 8.2 L, [place] % (Auto) 7.9, Eos % (Auto) 2.3, Baso % (Auto) 0.5, Neut # (Auto) 16.5 H, Lymph # (Auto) 1.7, [place] # (Auto) 1.6 H, Eos # (Auto) 0.5 H, Baso # (Auto) 0.1 02/08/21 20:40: Sodium 131 L, Potassium 4.0, Chloride 94 L, Carbon Dioxide 29, Anion Gap 12.0, BUN 20 H, Creatinine 0.80, Estimated Creat Clear 86, Estimated GFR 71, Est GFR ( Amer) 86, Glucose 193 H, Calcium 8.0 L, Troponin I < 0.01 02/08/21 20:40: Urine Color Yellow, Urine Appearance Clear, Urine pH 6.0, Ur Specific Home 1.025, Urine Protein Negative, Urine Glucose (UA) 2+, Urine Ketones Trace, Urine Blood Negative, Urine Nitrate Negative, Urine Bilirubin Negative, Urine Urobilinogen 4.0, Ur Leukocyte Esterase Negative, Urine RBC None, Urine WBC Occasional, Ur Squamous Epith Cells Occasional, Urine Bacteria None 02/08/21 20:40: SARS-CoV-2 (PCR) Not detected, Influenza A Untype (PCR) Not detected, Influenza Type B (PCR) Not detected 02/08/21 20:40: ESR 5 02/08/21 20:40: Total Bilirubin 0.9, Direct Bilirubin 0.1, Conjugated Bilirubin 0.0, Indirect Bilirubin 0.8, Unconjugated Bilirubin 0.8, AST 31, ALT 27, Alkaline Phosphatase 95, C-Reactive Protein 62.4 H, Total Protein 6.1 L, Albumin 3.4 L, Procalcitonin 0.075 02/08/21 20:40: NT-Pro-B Natriuret Pep 630 H 02/08/21 21:15: Lactate 1.0 Result diagrams: 02/08/21 20:40 02/08/21 20:40 Orders (Tests/Meds): ED MEDICATIONS Generic Name Dose Route Start Last Admin Trade Name Freq PRN Reason Stop Dose Admin Sodium Chloride 1,000 mls @ 999 mls/hr 02/08/21 21:15 02/08/21 21:05 Sod Chlor 0.9% 1000ml Bag IV 02/08/21 22:15 999 mls/hr .Q1H1M RAEANN Administration Sodium Chloride 8 ml 02/08/21 21:01 Sodium Chloride 0.9% 10ml Vial IV 03/10/21 21:00 NEEDED PRN dilute pepcid Discontinued Medications Generic Name Dose Route Start Last Admin Trade Name Freq PRN Reason Stop Dose Admin Albuterol/Ipratropium 3 ml 02/08/21 22:00 02/08/21 22:01 Ipratropium/Albuterol 3 Ml Neb IH 02/08/21 22:01 3 ml ONCE ONE Administration Famotidine 20 mg 02/08/21 21:01 02/08/21 21:05 Famotidine 20mg/2ml Vial IV 02/08/21 21:02 20 mg ONCE ONE Administration Metoclopramide HCl 10 mg 02/08/21 21:01 02/08/21 21:05 Metoclopramide Hcl 10mg/2ml Vial IVP 02/08/21 21:02 10 mg ONCE ONE Administration OR
[2021-02-08 22:11] LABS: NT Pro Brain Natriuretic Pep. 630 pg/mL (0-125)
--- NOTE | 2021-02-08 22:15 | PC.NURSE ---
DR ROCHE SPEAKING WITH DR FUENTES
[2021-02-08 22:24] LABS: Lymphocytes % 8 % (10-50); Monocytes % 2 % (2-9); Neutrophils % 90 % (42-76); Platelet Estimate Normal; Total Cells Counted 100
[2021-02-08 22:32] VITALS: BP 169/97; PULSE 93; RESP 20; TEMP 37.3; O2SAT 97
== END 2021-02-08 22:34 | disposition home or self-care (01) ==
PROVIDERS: Emergency Provider Emergency Medicine; PCP Internal Medicine Adolescent Medicine
DX: J20.9 Acute bronchitis, unspecified (principal); Z20.822 Contact with and (suspected) exposure to COVID-19; I10 Essential (primary) hypertension; E78.5 Hyperlipidemia, unspecified; I25.2 Old myocardial infarction; F41.9 Anxiety disorder, unspecified; Z88.2 Allergy status to sulfonamides; R06.02 Shortness of breath; Z79.899 Other long term (current) drug therapy
CPT/HCPCS: 71045; 80048; 80076; 81001; 83605; 83880; 84145; 84484; 85007; 85025; 85651; 86140; 87040; 93005; 96365; 96375; 99284; U0003

== ENCOUNTER 2021-11-10 12:28 | Emergency (ER) | payer MEDICARE, MEDICAID, SELFPAY ==
[2021-11-10 12:29] VITALS: BP 122/79; PULSE 70; RESP 16; TEMP 36.7; O2SAT 96; BMI 35.7
--- NOTE | 2021-11-10 12:31 | ECG_ITS ---
APPROVED REPORT Exam: Resting ECG HR:71 bpm ECG Measurements Heart Rate 71 AXES CA 248 P 20 QRSd 166 QRS -23 QT 406 T 110 QTc 429 Conclusion SINUS RHYTHM WITH FIRST DEGREE AV BLOCK WITH OCCASIONAL VENTRICULAR PREMATURE COMPLEXES BORDERLINE LEFT AXIS DEVIATION [QRS AXIS < -20] INTRAVENTRICULAR CONDUCTION DELAY [130+ ms QRS DURATION] ABNORMAL ECG UNCONFIRMED REPORT Electronically signed by : Osei Lee MD 11/11/2021 20:18:14
--- NOTE | 2021-11-10 12:36 | XR_ITS ---
FINAL REPORT CLINICAL HISTORY: syncope, dizzy COMPARISON: 02/09/2021 FINDINGS: A single view of the chest was obtained. The heart is enlarged. A left subclavian ICD is present. The lungs are clear. There is no pleural effusion. There is no pneumothorax. There is no acute osseous abnormality. IMPRESSION: No acute cardiopulmonary process. Reviewed, Interpreted and Dictated by Tashi Ritter III, MD Transcribed by Coty Weaver Authenticated and [facility]
--- NOTE | 2021-11-10 12:45 | PC.NURSE ---
rad at BS for portable xray
--- NOTE | 2021-11-10 12:56 | HMH.EDGENADL ---
ED Disposition Clinical Impression: Pre-syncope Disposition: Still a Patient Condition on Discharge: Good Referrals: Sanjeev Vicente MD [Primary Care Provider] - - Critical Care Critical Care Time: No Attestation: On 11/10/21, the high probability of a clinically significant, sudden or life threatening deterioration of the following system(s) required my full and direct attention, intervention and personal management. The time I documented below is in addition to time spent performing reported procedures but includes the following listed in this critical care notation. Medical Decision Making - Torsten Inquiry Pt receiving controlled substance: No Orders (Tests/Meds): ED MEDICATIONS Generic Name Dose Route Start Last Admin Trade Name Freq PRN Reason Stop Dose Admin Lactated Ringer's 1,000 mls @ 999 mls/hr 11/10/21 12:45 Lactated Ringer's 1000 Ml Bag IV 11/10/21 13:45 .Q1H1M [facility] ORDERS Category Date Time Status CXR --portable [XR chest portable] Stat Exams 11/10/21 12:36 Taken Complete Blood Count Auto Diff Stat Lab 11/10/21 12:39 Received Comprehensive Metabolic Panel Stat Lab 11/10/21 12:39 Received Trop I [Troponin I] Stat Lab 11/10/21 12:39 Received Troponin I Q3H Lab 11/10/21 15:45 Ordered Troponin I Q3H Lab 11/10/21 18:45 Ordered Medical Decision Narrative: The patient is a 71 year old female with a history of CHF, IL, pacemaker who presents to the ED with presyncope. On arrival she is awake, alert, stable. She is well appearing. Vitals normal. EKG was obtained which showed paced rhythm but no other abnormalities or evidence of ischemia. Labs including CBC, CMP, troponin were obtained as well as chest x-ray. She was given 500 cc LR. Patient care assumed by Dr. Calderon pending workup. General Adult HPI - General Stated complaint: syncope Time Seen by Provider: 11/10/21 12:45 - History of Present Illness HPI narrative: The patient is a 71 year old female with a history of IL and CHF who presents to the ED with presyncopal episode. The patient was outside walking around and sat down at a picnic table when suddenly she because dizzy, extremely diaphoretic and felt like she was going to pass out. She sat down and these symptoms persistent. EMS was called who gave her some fluids and she felt better. She presented here for further evaluation. She denies chest pain or shortness of breaht, no leg swelling, she had been feeling fine prior. No nausea, vomiting, diarrhea, fever. - Related Data Home Medications Medication Instructions Recorded Confirmed LORazepam [Lorazepam 0.5mg Tablet] 0.5 mg PO Q8HP PRN 11/24/18 09/27/21 polyethylene glycoL 3350 [Miralax 17 gm PO DAILY 05/16/20 09/27/21 17gm Packet] Previous Rx's Medication Instructions Recorded nitroglycerin 0.4 mg sublingual 0.4 mg SUBLINGUAL Q5MINP PRN #25 05/13/18 tablet tab.subl aspirin 81 mg tablet,delayed 81 mg PO DAILY #90 tab 09/16/19 release losartan 100 mg tablet See Rx Instructions .ROUTE 11/21/20 .COMPLEX #90 tablet pantoprazole 40 mg tablet,delayed See Rx Instructions .ROUTE 11/21/20 release .COMPLEX #90 tab famotidine 20 mg tablet 20 mg PO DAILY #30 tab 07/04/21 ticagrelor 90 mg tablet See Rx Instructions .ROUTE 09/19/21 .COMPLEX #180 tablet atorvastatin 40 mg tablet See Rx Instructions .ROUTE 10/04/21 .COMPLEX #90 tab carvedilol 6.25 mg tablet See Rx Instructions .ROUTE 10/04/21 .COMPLEX #180 tab furosemide 20 mg tablet 20 mg PO DAILY PRN #30 tab 10/04/21 Allergies Allergy/AdvReac Type Severity Reaction Status Date / Time Sulfa (Sulfonamide Allergy Mild Verified 09/27/21 13:06 Antibiotics) [SULFA (SULFONAMIDE ANTIBIOTICS)] [facility] History - Hepatitis A Screen Attestation statement:: This patient has been screened for Hepatitis A risk factors. Medical History: Reports:: Anxiety, Cancer, Cardiomyopathy, Congestive Heart Failure, Coronary Artery Disease
[2021-11-10 12:59] LABS: Basophils # 0.1 K/mm3 (0-0.2); Eosinophils # 0.2 K/mm3 (0.0-0.4); Eosinophils % 2.3 % (0.1-12.0); Hematocrit 41.8 % (37.0-47.0); Hemoglobin 13.8 g/dL (12.2-16.2); Lymphocytes # 0.9 K/mm3 (0.7-4.5); Lymphocytes % 12.3 % (10-50); Mean Corpuscular HGB Conc 32.9 g/dL (31.8-35.4); Mean Platelet Volume 7.7 fl (7.4-10.4); Monocytes # 0.6 K/mm3 (0.1-1.0); Neutrophils # 5.3 K/mm3 (1.8-7.8); Neutrophils % 75.5 % (37.0-80.0); Platelet Count 253 K/mm3 (142-424); Red Blood Count 4.75 M/mm3 (4.20-5.40); Red Cell Distribution Width 14.8 % (11.5-17.5)
[2021-11-10 13:00] LABS: Chloride 105 mmol/L (98-107); Potassium 4.2 mmoL/L (3.5-5.1); Sodium 136 mmol/L (136-145)
[2021-11-10 13:01] VITALS: BP 111/58; PULSE 70; RESP 16; O2SAT 99
[2021-11-10 13:02] LABS: Blood Urea Nitrogen 17 mg/dl (7-17); Estimated Glomerular Filt Rate 82 ml/min (>60); GFR (African American) 100 ML/MIN (>60)
[2021-11-10 13:03] LABS: Alanine Aminotransferase 19 U/L (12-78); Albumin Level 3.9 g/dl (3.5-5.0); Albumin/Globulin Ratio 1.4 (1.1-1.8); Alkaline Phosphatase 102 U/L (38-126); Anion Gap 10.2 mEq/L (5-15); Aspartate Amino Transferase 26 U/L (14-36); Bilirubin,Total 1.2 mg/dl (0.2-1.3); Calcium 8.8 mg/dl (8.4-10.2); Carbon Dioxide 25 mmol/L (22.0-30.0); Globulin 2.7 g/dL (1.3-3.2); Glucose 191 mg/dl (74-100); Total Protein,Serum 6.6 g/dl (6.3-8.2)
--- NOTE | 2021-11-10 13:07 | PC.NURSE ---
contacted cardiology to come interrogate pt pacemaker
--- NOTE | 2021-11-10 13:08 | PC.NURSE ---
per ER r/t pt hx of CHF only given 500 ML of IVF, not a a bolus rate. Will change IVF order
--- NOTE | 2021-11-10 13:15 | PC.NURSE ---
cardiology staff at interpretting pacemaker.
[2021-11-10 13:16] LABS: Troponin I < 0.01 ng/ml (0.00-0.034)
[2021-11-10 13:31] VITALS: BP 111/88; PULSE 67; RESP 18; O2SAT 98
--- NOTE | 2021-11-10 13:33 | PC.NURSE ---
per cardiology staff pt had no events today on pacemaker/defib notified ELIOT HARTMAN
[2021-11-10 14:01] VITALS: BP 137/77; PULSE 71; RESP 18; O2SAT 98
--- NOTE | 2021-11-10 14:13 | PC.NURSE ---
checked on pt at this time, pt sitting up in bed on her phone. States no needs at this time. Family at Bs. Will continue to monitor
--- NOTE | 2021-11-10 14:21 | PC.NURSE ---
pt ambulated to restroom and back with standby assist, denies dizziness. Tolerated ambulation well.
[2021-11-10 14:24] LABS: Microscopic, Urine URINE MICROSCOPIC (MICROSCOPIC)
[2021-11-10 14:31] VITALS: BP 123/70; PULSE 66; RESP 20; O2SAT 96
[2021-11-10 14:31] LABS: Appearance,Urine CLEAR (Clear); Bilirubin,Urine Negative (Negative); Blood, Urine Negative (Negative); Color,Urine AMBER (Yellow); Glucose,Urine (UA) Negative (Negative); Ketones,Urine Negative (Negative); Leukocyte Esterase,Urine Negative (Negative); Nitrate,Urine Negative (Negative); Protein,Urine TRACE (Negative); Specific Gravity, Urine 1.025 (1.005-1.030); Urobilinogen,Urine >=8.0 EU/dl (0.2)
[2021-11-10 15:05] LABS: Bacteria,Urine 1+ /lpf
--- NOTE | 2021-11-10 15:11 | PC.NURSE ---
pt sitting up on side of the bed, updated pt on POC, will obtain second troponin and go from their with plan
[2021-11-10 16:10] LABS: Troponin I < 0.01 ng/ml (0.00-0.034)
[2021-11-10 16:27] VITALS: BP 143/74; PULSE 65; RESP 16; TEMP 36.6; O2SAT 98
== END 2021-11-10 16:28 | disposition still patient (30) ==
PROVIDERS: Emergency Medicine; Emergency Provider Student in an Organized Health Care Education/Training Program; PCP Internal Medicine Adolescent Medicine
DX: R55 Syncope and collapse (principal); I50.9 Heart failure, unspecified; I25.2 Old myocardial infarction; Z95.0 Presence of cardiac pacemaker; Z88.2 Allergy status to sulfonamides; I11.0 Hypertensive heart disease with heart failure; I25.10 Atherosclerotic heart disease of native coronary artery without angina pectoris; E78.5 Hyperlipidemia, unspecified; I42.9 Cardiomyopathy, unspecified
CPT/HCPCS: 36415; 71045; 80053; 81001; 84484; 85025; 93005; 96365; 96366; 99284

== ENCOUNTER → 2022-05-01 15:45 | Outpatient (CLI) | payer MEDICARE, MEDICAID, SELFPAY | PROVIDERS: PCP Family Medicine; Visit Provider Family Medicine | DX: R05.9 Cough, unspecified (principal) ==

== ENCOUNTER → 2022-05-01 16:59 | Outpatient (CLI) | payer MEDICARE, MEDICAID, SELFPAY ==
--- NOTE | 2022-05-01 17:04 | XR_ITS ---
PROCEDURE INFORMATION: Exam: XR Chest Exam date and time: 05/01/2022 5:07 PM Age: 71 years old Clinical indication: Cough TECHNIQUE: Imaging protocol: Radiologic exam of the chest. Views: 2 views. COMPARISON: CR XR CHEST PORTABLE 11/10/2021 12:42 PM FINDINGS: Tubes, catheters and devices: A pulse generator device is present, and its leads are in appropriate position. Lungs: No evidence of pneumonia or interstitial edema. Pleural spaces: Unremarkable. No pleural effusion. No pneumothorax. Heart/Mediastinum: Unremarkable. No cardiomegaly. Bones/joints: Unremarkable. IMPRESSION: No evidence of pneumonia or interstitial edema.
[2022-05-01 19:07] LABS: Basophils # 0.1 K/mm3 (0-0.2); Eosinophils # 0.3 K/mm3 (0.0-0.4); Eosinophils % 3.7 % (0.1-12.0); Hematocrit 43.4 % (37.0-47.0); Hemoglobin 13.6 g/dL (12.2-16.2); Lymphocytes # 1.7 K/mm3 (0.7-4.5); Lymphocytes % 19.3 % (10-50); Mean Corpuscular HGB Conc 31.4 g/dL (31.8-35.4); Mean Corpuscular Hemoglobin 27.8 pg (27.0-31.2); Mean Corpuscular Volume 88.8 fl (81-99); Mean Platelet Volume 8.2 fl (7.4-10.4); Monocytes # 0.6 K/mm3 (0.1-1.0); Neutrophils % 69.1 % (37.0-80.0); Platelet Count 360 K/mm3 (142-424); Red Blood Count 4.89 M/mm3 (4.20-5.40); Red Cell Distribution Width 14.6 % (11.5-17.5); White Blood Count 8.6 K/mm3 (4.8-10.8)
[2022-05-01 19:18] LABS: Alanine Aminotransferase 16 U/L (12-78); Albumin Level 3.8 g/dl (3.5-5.0); Albumin/Globulin Ratio 1.7 (1.1-1.8); Alkaline Phosphatase 151 U/L (38-126); Anion Gap 17.2 mEq/L (5-15); Aspartate Amino Transferase 26 U/L (14-36); Bilirubin,Total 1.1 mg/dl (0.2-1.3); Blood Urea Nitrogen 12 mg/dl (7-17); Calcium 8.8 mg/dl (8.4-10.2); Carbon Dioxide 28 mmol/L (22.0-30.0); Chloride 94 mmol/L (98-107); Estimated Glomerular Filt Rate 62 ml/min (>60); GFR (African American) 75 ML/MIN (>60); Globulin 2.3 g/dL (1.3-3.2); Glucose 123 mg/dl (74-100); Potassium 4.2 mmoL/L (3.5-5.1); Sodium 135 mmol/L (136-145); Total Protein,Serum 6.1 g/dl (6.3-8.2)
== END ==
PROVIDERS: PCP Family Medicine; Visit Provider Family Medicine
DX: R05.9 Cough, unspecified (principal); I10 Essential (primary) hypertension
CPT/HCPCS: 71046; 80053; 85025

== ENCOUNTER → 2022-06-28 07:35 | Outpatient (CLI) | payer MEDICARE, MEDICAID, SELFPAY | PROVIDERS: PCP Nurse Practitioner Family; Visit Provider Nurse Practitioner Family | DX: R53.83 Other fatigue (principal); B96.29 Other Escherichia coli [E. coli] as the cause of diseases classified elsewhere; N39.0 Urinary tract infection, site not specified | CPT/HCPCS: 87086; 87088; 87186 ==

== ENCOUNTER → 2022-07-27 08:57 | Outpatient (CLI) | payer MEDICARE, MEDICAID, SELFPAY | PROVIDERS: PCP Nurse Practitioner Family; Visit Provider Nurse Practitioner Family | DX: M54.50 Low back pain, unspecified (principal); R53.83 Other fatigue; B96.29 Other Escherichia coli [E. coli] as the cause of diseases classified elsewhere | CPT/HCPCS: 87086; 87088; 87186 ==

== ENCOUNTER → 2022-07-30 14:07 | Outpatient (CLI) | payer MEDICARE, MEDICAID, SELFPAY ==
--- NOTE | 2022-07-30 14:08 | CA_ITS ---
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: Taisha Brandt CRT Ht: 5 ft 8 in Wt: 240lbs BSA: 2.21 BP: 143/83 mmHg Indications: Shortness of Breath, Obesity, Syncope, Hyperlipidemia, Cardiomyopathy, AICD, EF 25%w thrombus 07/07/17, EF 40% 05/16/20, stent, 2D Dimensions LVOT 2.06 cm (M/F) 1.5-2.5 M-Mode Dimensions RVDd 2.89 cm (0.9-2.6) LA Diam 3.27 cm (1.9-4.0) LVDd 5.43 cm (3.5-5.7) Ao Diam 4.40 cm (2.0-3.7) LVDs 4.14 cm (3.5-5.7) IVSd 1.04 cm (0.6-1.1) PWd 0.61 cm (0.6-1.1) EF (Teich) 47.00% FS 23.80% EDV (Teich) 143.10 mL TAPSE 1.08 (<1.7) ESV (Teich) 75.90 mL LV Diastology E Decel Time 243.00 (160-240 msec) E/A Ratio 1.35 MED E' 3.70 (< 7 cm/sec) MED A' 8.10 cm/s E'/MED E' Ratio 20.76 (>14) Aortic Valve AI PHT 469.00 ms AO Peak GR. 3.80 mmHg Mitral Valve MV E Max Dheeraj. 77.00 (40-130 cm/s) MV A Velocity 57.00 (40-130 cm/s) E/A Ratio 1.35 MV Decel. Time 243.00 (160-240 ms) MV PHT 71.00 ms Pulmonary Valve PV Peak Velocity 110.00 (50-150 cm/s) Tricuspid Valve TR P. Velocity 285.00 cm/s RAP Estimate 10.00 mmHg RVSP 42.50 mmHg Left Ventricle Left atrium is mildly enlarged, left ventricle is normal size mild concentric left ventricular hypertrophy, estimated ejection fraction 45%, with no regional wall motion abnormality, there is abnormal septal motion, endocardial surfaces are very poorly visualized. Right Ventricle Right atrium and right ventricle are mildly enlarged, with normal contractility. There is an AICD leads in the right ventricle. Aortic Valve Aortic valve is thickened and calcified without aortic stenosis or aortic insufficiency. Mitral Valve Mitral valve is grossly normal, there is mild mitral regurgitation. Tricuspid Valve Tricuspid valve grossly normal, there is mild tricuspid regurgitation, calculated right ventricular systolic pressure is 42 mmHg. Pulmonic Valve Pulmonic valve is poorly visualized. Great Vessels Aortic root is normal size. Inferior vena cava is poorly visualized. Pericardium No significant pericardial effusion noted. Conclusion 1. Technically very difficult study because of the patient factors and poor acoustic windows, endocardial surfaces and valvular structures are poorly visualized. Mild biatrial enlargement, normal left ventricular size, estimated ejection fraction approximately 45%, there is abnormal septal motion, diastolic parameters are inconclusive. 2. Mildly enlarged right ventricle with normal contractility. 3. Mild mitral and tricuspid regurgitation. Calculated right ventricular systolic pressure is 42 mmHg. 4. No significant pericardial effusion noted. 5. Inferior vena cava is poorly visualized. Electronically signed by : Vasyl Carrera MD 07/31/2022 06:17:58
[2022-07-30 16:02] LABS: Hemoglobin A1C 6.4 % (4.0-6.0)
[2022-07-30 16:23] LABS: Alanine Aminotransferase 20 U/L (12-78); Albumin Level 3.9 g/dl (3.5-5.0); Alkaline Phosphatase 110 U/L (38-126); Anion Gap 2.9 mEq/L (5-15); Aspartate Amino Transferase 25 U/L (14-36); Basophils # 0.1 K/mm3 (0-0.2); Basophils % 0.7 % (0.1-2.0); Bilirubin,Direct 0.2 mg/dl (0.0-0.4); Bilirubin,Indirect 0.8 mg/dL (0.0-0.9); Bilirubin,Unconjugated 0.8 mg/dL (0.0-1.1); Blood Urea Nitrogen 18 mg/dl (7-17); Calcium 8.5 mg/dl (8.4-10.2); Carbon Dioxide 27 mmol/L (22.0-30.0); Chloride 107 mmol/L (98-107); Chol/HDL Ratio 3.6 (1-3.5); Cholesterol 141 mg/dl (140-200); Eosinophils # 0.1 K/mm3 (0.0-0.4); Eosinophils % 1.2 % (0.1-12.0); Estimated Glomerular Filt Rate 82 ml/min (>60); GFR (African American) 100 ML/MIN (>60); Glucose 117 mg/dl (74-100); HDL Cholesterol 39 mg/dl (40-60); Hematocrit 43.1 % (37.0-47.0); Lymphocytes # 1.2 K/mm3 (0.7-4.5); Lymphocytes % 12.8 % (10-50); Magnesium 1.8 mg/dl (1.6-2.3); Mean Corpuscular HGB Conc 32.5 g/dL (31.8-35.4); Mean Corpuscular Volume 86.2 fl (81-99); Mean Platelet Volume 7.8 fl (7.4-10.4); Monocytes # 0.5 K/mm3 (0.1-1.0); Monocytes % 5.2 % (1.7-9.3); Neutrophils # 7.6 K/mm3 (1.8-7.8); Neutrophils % 80.1 % (37.0-80.0); Platelet Count 296 K/mm3 (142-424); Potassium 3.9 mmoL/L (3.5-5.1); Red Cell Distribution Width 14.4 % (11.5-17.5); Sodium 133 mmol/L (136-145); Total Protein,Serum 6.2 g/dl (6.3-8.2); Triglycerides 170 mg/dl (30-150); VLDL Cholesterol 34 mg/dL (0-40); White Blood Count 9.5 K/mm3 (4.8-10.8)
[2022-07-30 16:35] LABS: Direct LDL Cholesterol 74.09 mg/dL (100-129)
[2022-07-30 16:55] LABS: Thyroid Stimulating Hormone 3.16 uIU/mL (0.465-4.68)
== END ==
PROVIDERS: PCP Family Medicine; Visit Provider Nurse Practitioner
DX: R55 Syncope and collapse (principal); I25.5 Ischemic cardiomyopathy; I50.22 Chronic systolic (congestive) heart failure; E11.9 Type 2 diabetes mellitus without complications
CPT/HCPCS: 36415; 80048; 80061; 80076; 83036; 83735; 84439; 84443; 85025; 93306

== ENCOUNTER 2022-11-25 08:30 | Inpatient (IN) | payer MEDICARE, MEDICAID, SELFPAY ==
[2022-11-25] VITALS (22 sets, daily range): BP systolic 83–137; BP diastolic 40–102; PULSE 67–101; RESP 16–20; TEMP 36.7–37.2; O2SAT 92–98; BMI 33.4; BMI 37.0
--- NOTE | 2022-11-25 08:33 | ECG_ITS ---
APPROVED REPORT Exam: Resting ECG HR:89 bpm ECG Measurements Heart Rate 89 AXES NC 219 P 45 QRSd 170 QRS -39 QT 398 T 98 QTc 444 Conclusion SINUS RHYTHM WITH FIRST DEGREE AV BLOCK LEFT AXIS DEVIATION [QRS AXIS < -30] LEFT BUNDLE BRANCH BLOCK [120+ ms QRS DURATION, 80+ ms Q/S IN V1/V2, 85+ ms R IN I/aVL/V5/V6] ABNORMAL ECG UNCONFIRMED REPORT Electronically signed by : Osei Lee MD 11/26/2022 21:33:04
--- NOTE | 2022-11-25 08:37 | PC.NURSE ---
EKG done upon arrival
--- NOTE | 2022-11-25 08:39 | XR_ITS ---
PROCEDURE INFORMATION: Exam: XR Chest Exam date and time: 11/25/2022 8:43 AM Age: 72 years old Clinical indication: Other: Dizziness and weakness; Additional info: General weakness and dizziness TECHNIQUE: Imaging protocol: Radiologic exam of the chest. Views: 1 view. COMPARISON: CR XR CHEST 2V 05/01/2022 5:07 PM FINDINGS: Lungs: Unremarkable. No consolidation. Pleural spaces: Unremarkable. No pleural effusion. No pneumothorax. Heart/Mediastinum: Cardiac silhouette is mildly enlarged. There is a dual electrode pacemaker whose tips project within the right atrium and right ventricle. Bones/joints: Unremarkable for age. IMPRESSION: Mild cardiomegaly otherwise negative chest.
[2022-11-25 08:47] LABS: Microscopic, Urine URINE MICROSCOPIC (MICROSCOPIC)
[2022-11-25 08:48] LABS: Appearance,Urine CLEAR (Clear); Basophils % 0.3 % (0.1-2.0); Bilirubin,Urine Negative (Negative); Blood, Urine Negative (Negative); Color,Urine YELLOW (Yellow); Eosinophils # 0.1 K/mm3 (0.0-0.4); Eosinophils % 0.5 % (0.1-12.0); Glucose,Urine (UA) Negative (Negative); Hematocrit 40.9 % (37.0-47.0); Hemoglobin 13.9 g/dL (12.2-16.2); Ketones,Urine Negative (Negative); Leukocyte Esterase,Urine Negative (Negative); Lymphocytes # 0.5 K/mm3 (0.7-4.5); Mean Corpuscular Hemoglobin 27.7 pg (27.0-31.2); Mean Corpuscular Volume 81.6 fl (81-99); Mean Platelet Volume 7.6 fl (7.4-10.4); Monocytes # 0.6 K/mm3 (0.1-1.0); Monocytes % 5.5 % (1.7-9.3); Neutrophils # 9.6 K/mm3 (1.8-7.8); Neutrophils % 88.8 % (37.0-80.0); Nitrate,Urine Negative (Negative); Platelet Count 239 K/mm3 (142-424); Protein,Urine Negative (Negative); Red Blood Count 5.01 M/mm3 (4.20-5.40); Red Cell Distribution Width 14.9 % (11.5-17.5); Specific Gravity, Urine 1.015 (1.005-1.030); White Blood Count 10.8 K/mm3 (4.8-10.8)
[2022-11-25 08:49] LABS: MANUAL DIFFERENTIAL MANUAL DIFFERENTIAL (MANUAL DIFF)
[2022-11-25 08:51] LABS: Chloride 99 mmol/L (98-107); Potassium 4.2 mmoL/L (3.5-5.1); Sodium 133 mmol/L (136-145)
[2022-11-25 08:54] LABS: Anion Gap 13.2 mEq/L (5-15); Blood Urea Nitrogen 14 mg/dl (7-17); Calcium 8.4 mg/dl (8.4-10.2); Carbon Dioxide 25 mmol/L (22.0-30.0); Creatinine Clearance Estimated 80 mL/min (50-200); Estimated Glomerular Filt Rate 71 ml/min (>60); GFR (African American) 85 ML/MIN (>60); Glucose 152 mg/dl (74-100)
--- NOTE | 2022-11-25 08:59 | HMH.EDGENADL ---
Discharge Plan Disposition Patient Disposition: Admitted Condition: Good Clinical Impressions Clinical Impression: Pre-syncope, Dizziness, Ventricular tachycardia (paroxysmal) Discharge ED Provider: Dony Puentes General Adult HPI General Chief complaint: Dizziness Stated complaint: possible UTI Time Seen by Provider: 11/25/22 08:35 Mode of Arrival: Wheelchair Source of Information: Patient Limitations: No Limitations Description of Symptoms (Recalled from ER Triage Doc. by RN): pt to ed c/o lower back pain, dizziness and delirium. pt states she has had persistent back pain since that developed into dizziness and delirium last night. pt denies cp or soa. History of Present Illness HPI narrative: This is a 72-year-old female with history of ACS, CAD, IA status post stenting in 2021 currently on Brilinta, CHF status post AICD placement presenting with dizziness and back pain. Patient states that she started having lower back pain 1 day prior to arrival and polyuria, however she took a Lasix pill thinking it was related to her CHF. No dysuria, hematuria, or urgency. Patient states that she has also been feeling dizzy, but not nauseated, vomiting, short of breath, or having chest pains, fevers or chills, abdominal pain. Since yesterday, lower back pain has largely resolved, but patient still feeling unwell. States that her lower extremity swelling has not gotten any worse. Has been taking her medications as prescribed. Related Data Home Medications Medication Instructions Recorded Confirmed lorazepam 0.5 mg tablet 0.5 mg PO Q8HP PRN Anxiety 11/24/18 09/27/22 polyethylene glycol 3350 17 gram 17 g PO DAILY constipation 05/16/20 09/27/22 oral powder packet Previous Rx's Medication Instructions Recorded aspirin 81 mg tablet,delayed 81 mg PO DAILY Heart disease #90 09/16/19 release tabs furosemide 20 mg tablet (Lasix) 20 mg PO DAILY PRN sob, edema, or 10/04/21 weight gain #30 tabs atorvastatin 40 mg tablet See Rx Instructions .Route 01/02/22 .COMPLEX #90 tabs carvedilol 6.25 mg tablet See Rx Instructions .Route 01/02/22 .COMPLEX #180 tabs famotidine 20 mg tablet See Rx Instructions .Route 07/04/22 .COMPLEX #30 tabs ticagrelor 90 mg tablet (Brilinta) See Rx Instructions .Route 07/04/22 .COMPLEX #180 tabs losartan 100 mg tablet See Rx Instructions .Route 11/12/22 .COMPLEX #90 tabs pantoprazole 40 mg tablet,delayed See Rx Instructions .Route 11/12/22 release .COMPLEX #90 tabs Allergies Allergy/AdvReac Type Severity Reaction Status Date / Time Sulfa (Sulfonamide Allergy Mild Verified 09/27/22 13:03 Antibiotics) [SULFA (SULFONAMIDE ANTIBIOTICS)] [facility] Disclaimer: The information contained in this section may have been updated after the patient was seen, as this information can be updated by other users. Medical History Atypical angina Dyspnea Fatigue NYHA class 3 heart failure with reduced ejection fraction Syncope Surgical History H/O heart artery stent History of cholecystectomy Pacemaker Uterine polyp Family History Sister Cancer Brother Cancer Social History Smoking Status: Never smoker second hand exposure: No alcohol intake: never substance use type: denies use current occupational status: other Travel in the last 8 weeks: None household members: other housing: house current occupational exposures/hazards: No caffeine: Yes ROS Obtained: Yes All systems reviewed & no additional complaints except as documented Physical Exam General General appearance: alert Eye Eye exam: Present normal appearance, PERRL and EOMI ENT ENT exam: Present normal exam Chest Chest inspection: Present normal inspection an
[2022-11-25 09:04] LABS: NT Pro Brain Natriuretic Pep. 739 pg/mL (0-125)
[2022-11-25 09:15] LABS: Troponin I < 0.01 ng/ml (0.00-0.034)
--- NOTE | 2022-11-25 10:21 | PC.NURSE ---
pt assisted to and from the bathroom standby assistance. Family at BS
--- NOTE | 2022-11-25 10:23 | PC.NURSE ---
MD in room at this time
[2022-11-25 10:39] LABS: Lymphocytes % 9 % (10-50); Monocytes % 4 % (2-9); Neutrophils % 87 % (42-76); Total Cells Counted 100
[2022-11-25 10:40] LABS: Platelet Estimate Normal; RBC Morphology Normal
--- NOTE | 2022-11-25 11:27 | PC.NURSE ---
pt to restroom
--- NOTE | 2022-11-25 11:44 | PC.NURSE ---
Linda to draw 2nd trop now
--- NOTE | 2022-11-25 12:02 | ECG_ITS ---
APPROVED REPORT Exam: Resting ECG HR:63 bpm ECG Measurements Heart Rate 63 AXES MD 251 P 34 QRSd 172 QRS -36 QT 422 T 116 QTc 430 Conclusion SINUS RHYTHM WITH FIRST DEGREE AV BLOCK LEFT AXIS DEVIATION [QRS AXIS < -30] LEFT BUNDLE BRANCH BLOCK [120+ ms QRS DURATION, 80+ ms Q/S IN V1/V2, 85+ ms R IN I/aVL/V5/V6] LATERAL MYOCARDIAL INFARCTION , OF INDETERMINATE AGE [40+ ms Q WAVE AND/OR ST/T ABNORMALITY IN I/aVL/V5/V6] ABNORMAL ECG UNCONFIRMED REPORT Electronically signed by : Osei Lee MD 11/26/2022 21:32:54
--- NOTE | 2022-11-25 12:20 | PC.NURSE ---
covid swab sent to lab [id number]
--- NOTE | 2022-11-25 12:21 | PC.NURSE ---
cardiology paged [phone]
[2022-11-25 12:23] LABS: Coronavirus 19, PCR Not Detected (NotDetected); Influenza A, PCR Not Detected (NotDetected); Influenza B, PCR Not Detected (NotDetected)
[2022-11-25 12:28] LABS: Troponin I < 0.01 ng/ml (0.00-0.034)
--- NOTE | 2022-11-25 12:35 | PC.NURSE ---
placed purewick on pt
--- NOTE | 2022-11-25 13:02 | PC.NURSE ---
Pt assigned room [address] Baker
--- NOTE | 2022-11-25 13:11 | PC.NURSE ---
called house to let them know we were making pt a stepdown patient, pt will be going to 219
--- NOTE | 2022-11-25 13:17 | ECG_ITS ---
APPROVED REPORT Exam: Resting ECG HR:72 bpm ECG Measurements Heart Rate 72 AXES ID 263 P 58 QRSd 173 QRS 99 QT 418 T -69 QTc 442 Conclusion SINUS RHYTHM WITH FIRST DEGREE AV BLOCK BORDERLINE RIGHT AXIS DEVIATION [QRS AXIS > 90] INTRAVENTRICULAR CONDUCTION DELAY [130+ ms QRS DURATION] INFERIOR MYOCARDIAL INFARCTION , OF INDETERMINATE AGE [40+ ms Q WAVE AND/OR ST/T ABNORMALITY IN II/aVF] ABNORMAL ECG UNCONFIRMED REPORT Electronically signed by : Osei Lee MD 11/26/2022 21:32:34
--- NOTE | 2022-11-25 13:46 | PC.NURSE ---
staff at BS
[2022-11-25 13:50] LABS: Troponin I < 0.01 ng/ml (0.00-0.034)
--- NOTE | 2022-11-25 14:08 | PC.NURSE ---
arrived by stretcher from ED
--- NOTE | 2022-11-25 14:21 | EXP.HP ---
History of Present Illness *Admission Date: 11/25/22 *Reason for visit:: Dizziness *History of present illness: 72-year-old female with history of ACS, CAD, [place] status post stenting in 2021 currently on Brilinta, CHF status post AICD placement presenting with dizziness and back pain.? Patient states that she started having lower back pain 1 day prior to arrival and polyuria, however she took a Lasix pill thinking it was related to her CHF.? No dysuria, hematuria, or urgency.? Patient states that she has also been feeling dizzy, described as lightheadedness and intermittent. But not nauseated, vomiting, short of breath, or having chest pains, fevers or chills, abdominal pain.? Since yesterday, lower back pain has largely resolved, but patient still feeling unwell.? States that her lower extremity swelling has not gotten any worse.? Has been taking her medications as prescribed. [facility] Disclaimer: The information contained in this section may have been updated after the patient was seen, as this information can be updated by other users. Medical History Atypical angina Dyspnea Fatigue NYHA class 3 heart failure with reduced ejection fraction Syncope Surgical History H/O heart artery stent History of cholecystectomy Pacemaker Uterine polyp Family History Sister Cancer Brother Cancer Social History Smoking Status: Never smoker second hand exposure: No alcohol intake: never substance use type: denies use current occupational status: other Travel in the last 8 weeks: None household members: other housing: house current occupational exposures/hazards: No caffeine: Yes Review of Systems Constitutional Constitutional: Reports system reviewed and no additional complaints, except as documented Eyes Eyes: Reports system reviewed and no additional complaints, except as documented ENT Ears, Nose, Mouth, and Throat: Reports system reviewed and no additional complaints, except as documented and Reports dizziness *Cardiovascular Cardiovascular: Reports system reviewed and no additional complaints, except as documented *Respiratory Respiratory: Reports system reviewed and no additional complaints, except as documented *Gastrointestinal Gastrointestinal: Reports system reviewed and no additional complaints, except as documented *Genitourinary Genitourinary: Reports system reviewed and no additional complaints, except as documented *Musculoskeletal Musculoskeletal: Reports system reviewed and no additional complaints, except as documented Integumentary/Breasts Skin/Breast: Reports system reviewed and no additional complaints, except as documented *Neurologic Neurologic: Reports system reviewed and no additional complaints, except as documented and Reports dizziness Psychiatric Psychiatric: Reports system reviewed and no additional complaints, except as documented Endocrine Endocrine: Reports system reviewed and no additional complaints, except as documented Hematologic/Lymphatic Hematologic/Lymphatic: Reports system reviewed and no additional complaints, except as documented Meds Home Medications and Allergies Home Medications Medication Instructions Recorded Confirmed Type aspirin 81 mg tablet,delayed 81 mg PO DAILY Heart disease #90 09/16/19 11/25/22 Rx release tabs polyethylene glycol 3350 17 gram 17 g PO DAILY constipation 05/16/20 11/25/22 History oral powder packet atorvastatin 40 mg tablet 40 mg PO HS Cholesterol 11/25/22 11/25/22 History carvedilol 6.25 mg tablet 6.25 mg PO BIDWMEAL High blood 11/25/22 11/25/22 History pressure famotidine 20 mg tablet 20 mg PO DAILY Reflux/Acid reflux 11/25/22 11/25/22 History furosemide 20 mg tablet 20 mg PO DAILYP PRN Fluid 11/25/22 11/25/22 H
--- NOTE | 2022-11-25 14:30 | HMH.PHAINT1 ---
Pharmacy Intervention Comments: MEDICATION RECONCILIATION COMPLETE USING RECENT MD OFFICE VISIT AND EXTERNAL PHARMACY FILL HISTORY.
[2022-11-25 15:33] LABS: Troponin I < 0.01 ng/ml (0.00-0.034)
--- NOTE | 2022-11-25 19:10 | PC.NURSE ---
Amiodarone drip titrated to 0.5 mg/min IV per protocol.
[2022-11-26] VITALS (7 sets, daily range): BP systolic 105–118; BP diastolic 62–67; PULSE 66–80; RESP 20; TEMP 37; O2SAT 92–95; BMI 36.6
[2022-11-26 06:15] LABS: Basophils % 0.2 % (0.1-2.0); Eosinophils % 0.5 % (0.1-12.0); Hematocrit 39.4 % (37.0-47.0); Hemoglobin 12.8 g/dL (12.2-16.2); Lymphocytes # 0.9 K/mm3 (0.7-4.5); Lymphocytes % 13.3 % (10-50); Mean Corpuscular HGB Conc 32.5 g/dL (31.8-35.4); Mean Corpuscular Hemoglobin 27.7 pg (27.0-31.2); Mean Corpuscular Volume 85.2 fl (81-99); Mean Platelet Volume 7.6 fl (7.4-10.4); Monocytes # 0.7 K/mm3 (0.1-1.0); Monocytes % 10.4 % (1.7-9.3); Neutrophils % 75.6 % (37.0-80.0); Platelet Count 192 K/mm3 (142-424); Red Blood Count 4.63 M/mm3 (4.20-5.40); White Blood Count 6.6 K/mm3 (4.8-10.8)
[2022-11-26 06:25] LABS: Chloride 98 mmol/L (98-107); Potassium 3.9 mmoL/L (3.5-5.1); Sodium 131 mmol/L (136-145)
[2022-11-26 06:27] LABS: Blood Urea Nitrogen 14 mg/dl (7-17); Creatinine Clearance Estimated 88 mL/min (50-200); Estimated Glomerular Filt Rate 71 ml/min (>60); GFR (African American) 85 ML/MIN (>60)
[2022-11-26 06:28] LABS: Alanine Aminotransferase 27 U/L (12-78); Albumin Level 3.5 g/dl (3.5-5.0); Albumin/Globulin Ratio 1.3 (1.1-1.8); Alkaline Phosphatase 118 U/L (38-126); Anion Gap 11.9 mEq/L (5-15); Aspartate Amino Transferase 38 U/L (14-36); Bilirubin,Total 1.6 mg/dl (0.2-1.3); Carbon Dioxide 25 mmol/L (22.0-30.0); Globulin 2.8 g/dL (1.3-3.2); Glucose 136 mg/dl (74-100); Total Protein,Serum 6.3 g/dl (6.3-8.2)
--- NOTE | 2022-11-26 09:47 | EXP.CARD.CON ---
History of Present Illness History of Present Illness Consult date: 11/26/22 Requesting physician: Charles Troncoso Consult reason: hypotension Chief complaint: dizziness History of present illness: 72-year-old white female with past medical history of coronary artery disease with ROSLYN in 2018 and medical management 2019, hypertension, chronic systolic heart failure with an EF of 40% status post AICD placement, hyperlipidemia and obstructive sleep apnea presented to emergency department yesterday with complaints of low back pain and dizziness. Patient's daughter reports patient had not been feeling well the last few days and started complaining of low back pain and urinary frequency. Patient's daughter is an RN in emergency department. She believed patient to have a UTI so she brought patient in to ED for evaluation. Upon presentation to ER episodes of nonsustained VT were noted on monitor associated with episodes of dizziness and hypotension. Of note no rhythm strips are available for review. Daughter did not feel they looked like NSVT. Patient reports she did not take home medicine yesterday including beta-serina due to nausea and not feeling well. Patient was started on amiodarone drip in ER and was given home dose of coreg 6.25mg BID and has had no further episodes. A review of AICD download from 11/16/2022 showed no episodes of nonsustained VT but a heart failure index of 17. Patient reports she was aware of this and had started taking diuretics for heart failure symptoms and was feeling better. Heart index today is normal. Serial troponins have been negative. Other significant labs as follow: WBC 6.6, hemoglobin 12.8, sodium 131, potassium 3.9, creatinine 0.80, proBNP 739. Chest x-ray reveals mild cardiomegaly otherwise negative chest. Echo is pending. Patient denies complaints this morning. [facility] Disclaimer: The information contained in this section may have been updated after the patient was seen, as this information can be updated by other users. Medical History (Updated 11/26/22 @ 09:57 by Celeste Ppee APRN) Atypical angina Dyspnea Fatigue H/O acute myocardial infarction NYHA class 3 heart failure with reduced ejection fraction Syncope Surgical History H/O heart artery stent History of cholecystectomy Pacemaker Uterine polyp Family History Sister Cancer Brother Cancer Social History Smoking Status: Never smoker second hand exposure: No alcohol intake: never substance use type: denies use current occupational status: other Travel in the last 8 weeks: None household members: other housing: house current occupational exposures/hazards: No caffeine: Yes Review of Systems Review of Systems Review of systems:: pertinent systems reviewed and negative unless documented below ENT Ears, Nose, Mouth, and Throat: Reports dizziness *Cardiovascular Cardiovascular: Denies chest pain and Denies dyspnea on exertion *Respiratory Respiratory: Denies dyspnea on exertion *Musculoskeletal Musculoskeletal: Reports back pain *Neurologic Neurologic: Reports system reviewed and no additional complaints, except as documented and Reports dizziness Exam Data for Last 24 hours Vital signs and Labs for Last 24 Hours: Temp Pulse Resp BP Pulse Ox 98.6 F 80 20 123/57 L 97 11/26/22 07:30 11/26/22 08:00 11/25/22 16:00 11/25/22 23:49 11/25/22 23:49 Laboratory Results - last 24 hr 11/25/22 08:30: Total Counted 100, Neutrophils % (Manual) 87 H, Lymphocytes % (Manual) 9 L, Monocytes % (Manual) 4, Platelet Estimate Normal, RBC Morphology Normal 11/25/22 08:30: Urine RBC None, Urine WBC 3-5, Ur Squamous Epith Cells 10-20, Urine Bacteria None 11/25/22 11:46: Troponin I < 0.01 11/25/22 12:20: SARS-CoV-2 (PCR) Not detected, Influenza A Untyp
[2022-11-26 10:01] LABS: Troponin I < 0.01 ng/ml (0.00-0.034)
--- NOTE | 2022-11-26 13:26 | EXP.DC.SUM ---
General Admission date:: 11/25/22 HPI HPI HPI: 72-year-old female with history of ACS, CAD, [place] status post stenting in 2021 currently on Brilinta, CHF status post AICD placement presenting with dizziness and back pain.? Patient states that she started having lower back pain 1 day prior to arrival and polyuria, however she took a Lasix pill thinking it was related to her CHF.? No dysuria, hematuria, or urgency.? Patient states that she has also been feeling dizzy, described as lightheadedness and intermittent. But not nauseated, vomiting, short of breath, or having chest pains, fevers or chills, abdominal pain.? Since yesterday, lower back pain has largely resolved, but patient still feeling unwell.? States that her lower extremity swelling has not gotten any worse.? Has been taking her medications as prescribed. Hospital Course Hospital Course Hospital Course: Patient was admitted for? Dizziness: Which most likely related to runs of [place] [employer]. Cardiology consulted with the following final opinion: Reported NSVT with dizziness/hypotension -Discontinue Amio. continue coreg 12.5 mg BID -Had missed home dose of BB morning of episode -Serial trops negative -EKG shows normal sinus rhythm with a first-degree AV block rate 72 left bundle branch block, nonspecific ST and T wave changes noted -Preliminary echo report shows an estimated EF of 45% with no new wall motion abnormalities noted -AICD was interrogated per [employer] device specialist, no episodes of nonsustained VT or VT noted. CAD -Previous stenting 2017, medical management 2019 -Serial trops negative -EKG shows no acute ischemic changes -Continue aspirin 81 mg p.o. daily, Brilinta 90 mg p.o. twice daily, atorvastatin 40 mg p.o. daily and carvedilol 12.5 mg p.o. twice daily Chronic HFrEF s/p AICD -Download from 11/16/2022- HF index 17. was treated with diuretics and now is normal -Currently denies shortness of breath, lower extremity edema, orthopnea. -Continue carvedilol 12.5mg twice daily.? Start Lasix 20 mg p.o. daily, Aldactone 25 mg p.o. daily, Jardiance 10 mg daily, and Entresto 24/26 mg p.o[address] twice daily in place of losartan -Patient currently has standard AICD.? Given patient's heart failure symptoms NYHA III, left bundle branch block with a QRS greater than 150 ms patient is a candidate for BiV upgrade.? Discussed this with patient and family, at this time they would like to titrate up home medications for treatment of heart failure and consider BiV upgrade outpatient. HTN -Well-controlled -Continue losartan 50 mg p.o. twice daily, carvedilol 6.25 mg p.o. Hyperlipidemia -LDL goal less than 50, LDL 74.? Continue atorvastatin 40 mg p.o. daily CV summary 11/26/2022:?CV stable for discharge.? Please discharge patient home on the below listed medications.? Have patient follow-up in cardiology clinic next week and get labs drawn the day before.? Patient is a candidate for BiV upgrade based on [place] heart association class III symptoms, left bundle branch block with a QRS greater than 150 ms.? Discuss further at office follow-up. Exam Data for Last 24 hours Vital signs and Labs for Last 24 Hours: Temp Pulse Resp BP Pulse Ox 98.6 F 66 20 105/62 L 92 L 11/26/22 11:22 11/26/22 12:00 11/26/22 12:00 11/26/22 12:00 11/26/22 12:00 Laboratory Results - last 24 hr 11/25/22 13:16: Troponin I < 0.01 11/25/22 14:55: Troponin I < 0.01 11/26/22 05:25: WBC 6.6 D, RBC 4.63, Hgb 12.8, Hct 39.4, MCV 85.2, MCH 27.7, MCHC 32.5, RDW 15.0, Plt Count 192, MPV 7.6, Neut % (Auto) 75.6, Lymph % (Auto) 13.3, [place] % (Auto) 10.4 H, Eos % (Auto) 0.5, Baso % (Auto) 0.2, Neut # (Auto) 5.0, Lymph # (Auto) 0.9, [place] # (Auto) 0.7, Eos # (Auto) 0.0, Baso # (Auto) 0.0 11/26/22 05:25: Sodium 131 L, Potassium 3.9, Chloride 98, Carbon Dioxide 25, Anion Gap 11.9, BUN 14, Creatinine 0.80, Estimated Creat Clear 88, Estimated GFR 71, Est GFR ( Amer) 85, Glucose 136 H, Calcium 8.0 L, Total
--- NOTE | 2022-11-26 13:43 | HMH.PHAINT1 ---
Pharmacy Intervention Comments: MEDICATION DISCHARGE CHANGES REVIEWED WITH PATIENT: -START CARVEDILOL 12.5MG (NOTICE OF LIGHT-HEADEDNESS DUE TO NEW DOSE) -STOP CARVEDILOL 6.25MG PATIENT HAD NO FURTHER QUESTIONS AT THIS TIME -BRISSA MEDLEY. PHARM STUDENT
--- NOTE | 2022-11-27 12:35 | CARE MANAGER ---
Spoke with patient for post-discharge phone interview, no issues noted.
== END 2022-11-26 14:40 | disposition home or self-care (01) | DRG 309 ==
LOC: ER 09:05 → 2ND 13:09
PROVIDERS: Nurse Practitioner; Admitting Provider Family Medicine; Emergency Provider Emergency Medicine; PCP Family Medicine; Visit Provider Family Medicine
DX: I47.29 Other ventricular tachycardia (principal); I50.22 Chronic systolic (congestive) heart failure; Z95.5 Presence of coronary angioplasty implant and graft; Z79.01 Long term (current) use of anticoagulants; Z79.899 Other long term (current) drug therapy; Z95.810 Presence of automatic (implantable) cardiac defibrillator; I25.5 Ischemic cardiomyopathy; I25.2 Old myocardial infarction; I25.10 Atherosclerotic heart disease of native coronary artery without angina pectoris; I95.9 Hypotension, unspecified; I11.0 Hypertensive heart disease with heart failure
CPT/HCPCS: 36415; 71045; 80048; 80053; 81001; 83880; 84443; 84484; 85007; 85025; 87636; 93005; 93308; 99291; C9803; J0282; J3475; J7060; U0003; U0005

== ENCOUNTER → 2022-12-04 11:00 | Outpatient (CLI) | payer MEDICARE, MEDICAID, SELFPAY ==
--- NOTE | 2022-12-04 11:04 | XR_ITS ---
PROCEDURE INFORMATION: Exam: XR Chest Exam date and time: 12/04/2022 11:06 AM Age: 72 years old Clinical indication: Cough TECHNIQUE: Imaging protocol: Radiologic exam of the chest. Views: 2 views. Total images: 2 COMPARISON: CR XR CHEST PORTABLE 11/25/2022 8:43 AM FINDINGS: Tubes, catheters and devices: A pacemaker device is present, its leads in appropriate position. Lungs: Atelectatic changes noted within both lung bases. No focal pneumonia or pneumothorax. Bilateral hyperinflation is present. Pleural spaces: No pleural effusions. Heart/Mediastinum: Heart demonstrates mild diffuse enlargement. Bones/joints: The thoracic spine demonstrates mild degenerative changes at multiple levels. IMPRESSION: 1. Mild cardiomegaly. 2. Atelectatic changes noted within both lung bases. 3. No focal pneumonia or pneumothorax. 4. No pleural effusions. 5. Bilateral hyperinflation is present.
[2022-12-04 12:10] LABS: Chloride 102 mmol/L (98-107); Potassium 4.4 mmoL/L (3.5-5.1); Sodium 135 mmol/L (136-145)
[2022-12-04 12:12] LABS: Alanine Aminotransferase 23 U/L (12-78); Aspartate Amino Transferase 33 U/L (14-36); Bilirubin,Unconjugated 0.8 mg/dL (0.0-1.1); Blood Urea Nitrogen 14 mg/dl (7-17); Estimated Glomerular Filt Rate 82 ml/min (>60); GFR (African American) 100 ML/MIN (>60)
[2022-12-04 12:13] LABS: Albumin Level 3.9 g/dl (3.5-5.0); Alkaline Phosphatase 120 U/L (38-126); Anion Gap 13.4 mEq/L (5-15); Bilirubin,Direct 0.1 mg/dl (0.0-0.4); Bilirubin,Indirect 0.8 mg/dL (0.0-0.9); Bilirubin,Total 0.9 mg/dl (0.2-1.3); Calcium 8.7 mg/dl (8.4-10.2); Carbon Dioxide 24 mmol/L (22.0-30.0); Chol/HDL Ratio 4.1 (1-3.5); Cholesterol 146 mg/dl (140-200); Glucose 142 mg/dl (74-100); HDL Cholesterol 36 mg/dl (40-60); Total Protein,Serum 6.5 g/dl (6.3-8.2); Triglycerides 161 mg/dl (30-150); VLDL Cholesterol 32 mg/dL (0-40)
== END ==
PROVIDERS: PCP Family Medicine; Visit Provider Nurse Practitioner
DX: R06.00 Dyspnea, unspecified (principal); I50.22 Chronic systolic (congestive) heart failure; I21.3 ST elevation (STEMI) myocardial infarction of unspecified site
CPT/HCPCS: 36415; 71046; 80048; 80061; 80076; 83735

== ENCOUNTER → 2023-03-20 11:19 | Outpatient (CLI) | payer MEDICARE, MEDICAID, SELFPAY ==
[2023-03-20 11:47] LABS: Basophils # 0.1 K/mm3 (0-0.2); Basophils % 0.8 % (0.1-2.0); Eosinophils # 0.3 K/mm3 (0.0-0.4); Eosinophils % 4.1 % (0.1-12.0); Hematocrit 41.6 % (37.0-47.0); Hemoglobin 14.1 g/dL (12.2-16.2); Lymphocytes # 1.2 K/mm3 (0.7-4.5); Lymphocytes % 18.1 % (10-50); Mean Corpuscular Hemoglobin 30.8 pg (27.0-31.2); Mean Corpuscular Volume 90.5 fl (81-99); Mean Platelet Volume 7.3 fl (7.4-10.4); Monocytes # 0.5 K/mm3 (0.1-1.0); Neutrophils # 4.8 K/mm3 (1.8-7.8); Platelet Count 257 K/mm3 (142-424); Red Blood Count 4.59 M/mm3 (4.20-5.40); Red Cell Distribution Width 15.5 % (11.5-17.5); White Blood Count 6.8 K/mm3 (4.8-10.8)
[2023-03-20 12:30] LABS: Chloride 105 mmol/L (98-107); Potassium 4.4 mmoL/L (3.5-5.1); Sodium 137 mmol/L (136-145)
[2023-03-20 12:32] LABS: Alanine Aminotransferase 27 U/L (12-78); Aspartate Amino Transferase 34 U/L (14-36); Bilirubin,Direct 0.3 mg/dl (0.0-0.4); Bilirubin,Indirect 0.4 mg/dL (0.0-0.9); Bilirubin,Total 0.7 mg/dl (0.2-1.3); Bilirubin,Unconjugated 0.4 mg/dL (0.0-1.1); Blood Urea Nitrogen 14 mg/dl (7-17); Estimated Glomerular Filt Rate 82 ml/min (>60); GFR (African American) 100 ML/MIN (>60)
[2023-03-20 12:33] LABS: Albumin Level 3.8 g/dl (3.5-5.0); Alkaline Phosphatase 107 U/L (38-126); Anion Gap 11.4 mEq/L (5-15); Calcium 8.8 mg/dl (8.4-10.2); Carbon Dioxide 25 mmol/L (22.0-30.0); Chol/HDL Ratio 3.7 (1-3.5); Cholesterol 153 mg/dl (140-200); Glucose 138 mg/dl (74-100); HDL Cholesterol 41 mg/dl (40-60); Magnesium 1.9 mg/dl (1.6-2.3); Total Protein,Serum 6.1 g/dl (6.3-8.2); Triglycerides 127 mg/dl (30-150); VLDL Cholesterol 25 mg/dL (0-40)
[2023-03-20 12:45] LABS: Direct LDL Cholesterol 83.34 mg/dL (100-129)
[2023-03-20 13:05] LABS: Thyroid Stimulating Hormone 3.62 uIU/mL (0.465-4.68)
== END ==
PROVIDERS: PCP Family Medicine; Visit Provider Nurse Practitioner
DX: I11.0 Hypertensive heart disease with heart failure (principal); I50.22 Chronic systolic (congestive) heart failure; I21.3 ST elevation (STEMI) myocardial infarction of unspecified site; E78.5 Hyperlipidemia, unspecified
CPT/HCPCS: 36415; 80048; 80061; 80076; 83735; 84443; 85025

== ENCOUNTER 2023-08-05 16:55 | Outpatient (CLI) | payer MEDICARE, MEDICAID, SELFPAY ==
[2023-08-05 16:19] LABS: Basophils # 0.1 K/mm3 (0-0.2); Basophils % 0.8 % (0.1-2.0); Eosinophils # 0.2 K/mm3 (0.0-0.4); Eosinophils % 1.6 % (0.1-12.0); Hematocrit 44.4 % (37.0-47.0); Hemoglobin 14.4 g/dL (12.2-16.2); Lymphocytes # 1.2 K/mm3 (0.7-4.5); Lymphocytes % 10.9 % (10-50); Mean Corpuscular HGB Conc 32.5 g/dL (31.8-35.4); Mean Corpuscular Hemoglobin 30.5 pg (27.0-31.2); Mean Corpuscular Volume 93.8 fl (81-99); Monocytes # 0.6 K/mm3 (0.1-1.0); Monocytes % 5.9 % (1.7-9.3); Neutrophils # 8.7 K/mm3 (1.8-7.8); Neutrophils % 80.8 % (37.0-80.0); Platelet Count 278 K/mm3 (142-424); Red Blood Count 4.73 M/mm3 (4.20-5.40); Red Cell Distribution Width 14.9 % (11.5-17.5); White Blood Count 10.8 K/mm3 (4.8-10.8)
[2023-08-05 16:28] LABS: Alanine Aminotransferase 16 U/L (12-78); Albumin Level 4.1 g/dl (3.5-5.0); Albumin/Globulin Ratio 1.8 (1.1-1.8); Alkaline Phosphatase 140 U/L (38-126); Anion Gap 12.6 mEq/L (5-15); Aspartate Amino Transferase 24 U/L (14-36); Blood Urea Nitrogen 25 mg/dl (7-17); Calcium 9.2 mg/dl (8.4-10.2); Carbon Dioxide 24 mmol/L (22.0-30.0); Chloride 104 mmol/L (98-107); Estimated Glomerular Filt Rate 49 ml/min (>60); GFR (African American) 59 ML/MIN (>60); Globulin 2.3 g/dL (1.3-3.2); Glucose 119 mg/dl (74-100); Potassium 4.6 mmoL/L (3.5-5.1); Sodium 136 mmol/L (136-145); Total Protein,Serum 6.4 g/dl (6.3-8.2)
[2023-08-05 18:07] LABS: Hemoglobin A1C 6.6 % (4.0-6.0)
== END 2023-08-05 23:59 ==
LOC: LAB.DROPOF 16:56
PROVIDERS: PCP Nurse Practitioner Family; Visit Provider Nurse Practitioner Family
DX: E11.9 Type 2 diabetes mellitus without complications (principal); R42 Dizziness and giddiness
CPT/HCPCS: 80053; 83036; 85025

== ENCOUNTER 2024-04-10 11:20 | Outpatient (CLI) | payer MEDICARE, MEDICAID, SELFPAY | END 2024-04-10 23:59 | disposition home or self-care (01) | LOC: LAB.DROPOF 04-11 09:05 | PROVIDERS: PCP Family Medicine; Visit Provider Family Medicine | DX: R10.9 Unspecified abdominal pain (principal); N39.0 Urinary tract infection, site not specified | CPT/HCPCS: 87086; 87088; 87186 ==

== ENCOUNTER 2024-05-18 11:00 | Outpatient (CLI) | payer MEDICARE, MEDICAID, SELFPAY ==
[2024-05-18 16:22] LABS: Basophils # 0.1 K/mm3 (0-0.2); Basophils % 0.9 % (0.1-2.0); Eosinophils # 0.2 K/mm3 (0.0-0.4); Eosinophils % 2.8 % (0.1-12.0); Hematocrit 43.8 % (37.0-47.0); Hemoglobin 14.5 g/dL (12.2-16.2); Lymphocytes # 1.1 K/mm3 (0.7-4.5); Lymphocytes % 13.8 % (10-50); Mean Corpuscular HGB Conc 33.2 g/dL (31.8-35.4); Mean Corpuscular Hemoglobin 30.2 pg (27.0-31.2); Mean Corpuscular Volume 90.9 fl (81-99); Mean Platelet Volume 8.3 fl (7.4-10.4); Monocytes # 0.6 K/mm3 (0.1-1.0); Monocytes % 7.5 % (1.7-9.3); Neutrophils # 5.9 K/mm3 (1.8-7.8); Platelet Count 234 K/mm3 (142-424); Red Blood Count 4.82 M/mm3 (4.20-5.40); Red Cell Distribution Width 14.2 % (11.5-17.5); White Blood Count 7.9 K/mm3 (4.8-10.8)
[2024-05-18 17:04] LABS: Alanine Aminotransferase 25 U/L (12-78); Albumin Level 3.8 g/dl (3.5-5.0); Albumin/Globulin Ratio 1.7 (1.1-1.8); Alkaline Phosphatase 129 U/L (38-126); Anion Gap 12.7 mEq/L (5-15); Aspartate Amino Transferase 35 U/L (14-36); Bilirubin,Total 1.1 mg/dl (0.2-1.3); Blood Urea Nitrogen 18 mg/dl (7-17); Calcium 9.2 mg/dl (8.4-10.2); Carbon Dioxide 22 mmol/L (22.0-30.0); Chloride 107 mmol/L (98-107); Chol/HDL Ratio 3.4 (1-3.5); Cholesterol 144 mg/dl (140-200); Estimated Glomerular Filt Rate 70 ml/min (>60); GFR (African American) 85 ML/MIN (>60); Globulin 2.2 g/dL (1.3-3.2); Glucose 105 mg/dl (74-100); HDL Cholesterol 42 mg/dl (40-60); Potassium 4.7 mmoL/L (3.5-5.1); Sodium 137 mmol/L (136-145); Triglycerides 129 mg/dl (30-150); VLDL Cholesterol 26 mg/dL (0-40)
[2024-05-18 17:14] LABS: Direct LDL Cholesterol 72.83 mg/dL (100-129)
[2024-05-18 17:33] LABS: Thyroid Stimulating Hormone 2.64 uIU/mL (0.465-4.68)
[2024-05-18 17:46] LABS: Hemoglobin A1C 6.1 % (4.0-6.0)
[2024-05-18 18:16] LABS: Creatinine,Urine Random 92 mg/dL (Not Estab.); Microalbumin < 6.000 mg/L (0-16.7)
== END 2024-05-18 23:59 | disposition home or self-care (01) ==
LOC: LAB.DROPOF 05-19 12:33
PROVIDERS: PCP Family Medicine; Visit Provider Family Medicine
DX: E11.69 Type 2 diabetes mellitus with other specified complication (principal)
CPT/HCPCS: 80053; 80061; 82043; 82570; 83036; 84443; 85025

== ENCOUNTER 2024-12-17 11:29 | Outpatient (CLI) | payer MEDICARE, MEDICAID, SELFPAY ==
--- OUTSIDE RECORDS SUMMARY | 2024-12-18 10:39 | XMS_ITS | Clinical Summary ---
Author Organization [facility] [place] [address] Care Team Providers Care Route Manager Name Role Phone Unavailable Primary Care Provider Unavailabl e Social History Tobacco Use Types Packs/Day Years Used Date Smoking Tobacco: Never Assessed Comments Unknown Sex and Gender Information Value Date Recorded Sex Assigned at Not on file Legal Sex Female 6:08 PM EDT Gender Identity Not on file Sexual Orientation Not on file Last Filed Vital Signs Vital Sign Reading Time Taken Comments Blood Pressure 103/67 11/27/2022 10:37 AM EDT Pulse 86 11/27/2022 10:37 AM EDT Temperature - - Respiratory Rate - - Oxygen Saturation - - Inhaled Oxygen Concentration - - Weight 110 kg (242 lb) 11/27/2022 10:37 AM EDT Height 172.7 cm (5' 8 ) 11/27/2022 10:37 AM EDT Body Mass Index 36.8 11/27/2022 10:37 AM EDT Plan of Treatment Health Maintenance Due Date Last Done Comments [facility]-Bone Density Scan 1950 [facility]-Depression Screening 1950 [facility]-/Child/Adol SDOH Screenings 1950 [facility]- SDOH Screenings 1968 [facility]-Adult SDOH Screenings 1968 [facility]-DTaP,Tdap,and Td Vaccine s (1 - Tdap) 1969 CT Colonography 10/06/1995 Colonoscopy 10/06/1995 FIT-DNA 10/06/1995 FIT 10/06/1995 FOBT 10/06/1995 Sigmoidoscopy 10/06/1995 [facility]-Colorectal Cancer Screening 10/06/1995 [facility]-Pneumococcal Vaccine: 50 + Years (1 of 1 - PCV) 2000 [facility]-Zoster Vaccines (1 of 2) 2000 LPI-LPSWH-12 Vaccine (4 - season) 2024 03/02/2021, 07/11/2020, 06/09/2020 [facility]-Influenza Vaccine (#1) 2025 [facility]-RSV Vaccine: 60+ Years o r (1 - 1-dose 75+ series) 2025 HPV Vaccines Aged Out No longer eligi ble based on patient's age to complete this topic [facility]-HIB Vaccines Aged Out No longer e ligible based on patient's age to complete this topic [facility]-Hepatitis A Vaccines Aged Out No longer eligible based on patient's age to complete this topic [facility]-IPV Vaccines Aged Out No longer e ligible based on patient's age to complete this topic [facility]-Rotavirus Vaccines Aged Out No lo nger eligible based on patient's age to complete this topic Insurance MEDICARE [place]ICA[id number]
== END 2024-12-17 23:59 | disposition home or self-care (01) ==
LOC: LAB.DROPOF 12-18 10:36
PROVIDERS: PCP Family Medicine; Visit Provider Family Medicine
DX: M54.50 Low back pain, unspecified (principal)
CPT/HCPCS: 87086

== ENCOUNTER 2025-02-25 09:25 | Outpatient (CLI) | payer MEDICARE, MEDICAID, SELFPAY ==
[2025-02-25 20:57] LABS: Hematocrit 42.8 % (37.0-47.0); Hemoglobin 13.5 g/dL (12.2-16.2); Immature Granulocytes % 0.7 %; Mean Corpuscular HGB Conc 31.5 g/dL (31.8-35.4); Mean Corpuscular Hemoglobin 29.6 pg (27.0-31.2); Mean Corpuscular Volume 93.9 fl (81-99); Nucleated Red Blood Cells % 0 %; Platelet Count 262 K/mm3 (142-424); Red Blood Count 4.56 M/mm3 (4.20-5.40); Red Cell Distribution Width-SD 54.9 fL; White Blood Count 8.6 K/mm3 (4.8-10.8)
[2025-02-25 21:16] LABS: Alanine Aminotransferase 16 U/L (12-78); Albumin Level 3.9 g/dl (3.5-5.0); Albumin/Globulin Ratio 1.8 (1.1-1.8); Alkaline Phosphatase 83 U/L (38-126); Anion Gap 14.3 mEq/L (5-15); Aspartate Amino Transferase 40 U/L (14-36); Bilirubin,Total 1.2 mg/dl (0.2-1.3); Blood Urea Nitrogen 14 mg/dl (7-17); Calcium 8.9 mg/dl (8.4-10.2); Carbon Dioxide 21 mmol/L (22.0-30.0); Chloride 105 mmol/L (98-107); Cholesterol 123 mg/dl (140-200); Creatinine,Serum 0.70 mg/dl (0.52-1.04); Estimated Glomerular Filt Rate 82 ml/min (>60); GFR (African American) 99 ML/MIN (>60); Globulin 2.2 g/dL (1.3-3.2); Glucose 89 mg/dl (74-100); HDL Cholesterol 47 mg/dl (40-60); Potassium 5.3 mmoL/L (3.5-5.1); Sodium 135 mmol/L (136-145); Total Protein,Serum 6.1 g/dl (6.3-8.2); Triglycerides 88 mg/dl (30-150)
[2025-02-25 21:46] LABS: Thyroid Stimulating Hormone 2.67 uIU/mL (0.465-4.68)
[2025-02-25 21:54] LABS: Hemoglobin A1C 5.9 % (4.0-6.0)
[2025-02-25 22:49] LABS: Hepatitis C Ab Qual. W/ RFX NEGATIVE (Negative)
[2025-02-27 08:12] LABS: Hepatitis B Surface Antigen Negative (Negative)
--- OUTSIDE RECORDS SUMMARY | 2025-03-01 09:10 | XMS_ITS | Clinical Summary ---
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 Tender Name Role Phone Unavailable Primary Care Provider [...] [facility]-Bone Density Scan 1950 [facility]-Depression Screening 1950 [facility]-Infant/Child/Adol SDOH Screenings 1950 [facility]- SDOH Screenings 1968 [facility]-Adult SDOH Screenings 1968 [facility]-DTaP,Tdap,and Td Vaccine s (1 - Tdap) 1969 CT Colonography 10/06/1995 Colonoscopy 10/06/1995 FIT-DNA 10/06/1995 FIT 10/06/1995 FOBT 10/06/1995 Sigmoidoscopy 10/06/1995 [facility]-Colorectal Cancer Screening 10/06/1995 [facility]-Pneumococcal Vaccine: 50 + Years (1 of 1 - PCV) 2000 [facility]-Zoster Vaccines (1 of 2) 2000 [id number] Vaccine (4 - 2024- season) 2025 03/02/2021, 07/11/2020, 06/09/2020 [facility]-Influenza Vaccine (#1) 2025 [...]
== END 2025-02-25 23:59 ==
LOC: LAB.DROPOF 03-01 09:03
PROVIDERS: PCP Family Medicine; Visit Provider Family Medicine
DX: E78.5 Hyperlipidemia, unspecified (principal); Z11.4 Encounter for screening for human immunodeficiency virus [HIV]; I10 Essential (primary) hypertension; Z11.59 Encounter for screening for other viral diseases; E11.9 Type 2 diabetes mellitus without complications
CPT/HCPCS: 80053; 80061; 83036; 84443; 85025; 86803; 87340; 87389

== ENCOUNTER 2025-03-05 10:00 | Outpatient (CLI) | payer MEDICARE, MEDICAID, SELFPAY | END 2025-03-05 23:59 | disposition home or self-care (01) | LOC: LAB.DROPOF 03-09 03:34 | PROVIDERS: PCP Family Medicine; Visit Provider Family Medicine | DX: E11.9 Type 2 diabetes mellitus without complications (principal) | CPT/HCPCS: 82043; 82570 ==